=== PATIENT | male | born 1955 | race Caucasian/White ===

== ENCOUNTER 2019-05-09 21:38 | Inpatient (IN) | payer BC, MEDICARE ==
[2019-05-09 23:10] LABS: Appearance,Urine Clear (Clear); Bilirubin,Urine Negative (Negative); Blood,Urine Negative (Negative); Color,Urine Yellow; Glucose,Urine (UA) Negative (Negative); Ketones,Urine Trace (Negative); Leukocyte Esterase,Urine Negative (Negative); Nitrite,Urine Negative (Negative); PH, Urine 5.5 (5.0-8.0); Protein,Urine Negative (Negative); Specific Gravity,Urine 1.009 (1.001-1.035); Urobilinogen,Urine <2.0 mg/dL (<2.0)
[2019-05-09 23:19] LABS: Amphetamine Screen,Urine Not Detected (NotDetected); Barbiturate Screen,Urine Not Detected (NotDetected); Benzodiazepines Screen,Urine Detected (NotDetected); Cocaine Screen,Urine Not Detected (NotDetected); Methadone Screen, Urine Not Detected (NotDetected); Opiate Screen,Urine Not Detected (NotDetected); Oxycodone Screen, Urine Not Detected (NotDetected); Phencyclidine Screen,Urine Not Detected (NotDetected); Tricyclic Antidepressant,Urine Not Detected (NotDetected); Urn Cannabinoid Scrn Not Detected (NotDetected)
[2019-05-09 23:39] LABS: Basophils % (A) 0 %; Eosinophils # (A) 0.1 k/uL (0-0.7); Eosinophils % (A) 1 %; HCT 45.8 % (39.0-53.0); HGB 15.4 gm/dL (13.0-17.5); Lymphocytes # (A) 0.7 k/uL (1.0-4.8); Lymphocytes % (A) 12 %; MCH 32.4 pg (25.0-35.0); MCHC 33.6 g/dL (31.0-37.0); MCV 96.2 fL (80.0-100.0); Mean Platelet Volume 7.1; Monocytes # (A) 0.5 k/uL (0-1.0); Monocytes % (A) 9 %; Neutrophils # (A) 4.3 k/uL (1.3-7.7); Neutrophils % (A) 74 %; Platelet Count 199 k/uL (150-450); RBC 4.76 m/uL (4.30-5.90); RDW 12.3 % (11.5-15.5); WBC 5.8 k/uL (3.8-10.6)
[2019-05-09 23:58] LABS: ALT 205 U/L (21-72); AST 169 U/L (17-59); African American GFR (CKD) >90 (>60 ml/min/1.73 sqM); Albumin 4.3 g/dL (3.5-5.0); Alkaline Phosphatase 66 U/L (38-126); Anion Gap 15 mmol/L; Blood Urea Nitrogen 8 mg/dL (9-20); Calcium 9.3 mg/dL (8.4-10.2); Carbon Dioxide 19 mmol/L (22-30); Chloride 98 mmol/L (98-107); Glucose 87 mg/dL (74-99); Magnesium 1.8 mg/dL (1.6-2.3); Phosphorus 4.3 mg/dL (2.5-4.5); Potassium 4.1 mmol/L (3.5-5.1); Sodium 132 mmol/L (137-145); Total Bilirubin 0.9 mg/dL (0.2-1.3); Total Protein 6.9 g/dL (6.3-8.2)
[2019-05-10 00:10] LABS: Alcohol 108 mg/dL
--- NOTE | 2019-05-10 02:00 | ED ---
General Adult HPI - General Chief complaint: Psychiatric Symptoms Stated complaint: Depression Time Seen by Provider: 05/09/19 22:00 Source: patient, family Mode of arrival: ambulatory Limitations: no limitations - History of Present Illness Initial comments: 64 year-old male patient presents to the emergency department today for evaluation after lying his that he was going to tonight. Patient states that he did drink 7-8 beers today. He admits to drinking alcohol daily basis. Denies any street drug use. Patient states he has been feeling depressed, weak, and exhausted. States that he feels like he is going to . Patient is unable to describe why he thinks this. Patient does take several medications including medication for depression. states he has not been taking them as directed. He denies any active suicidal plan. Denies any homicidal ideation. Denies any hallucinations. Patient denies any recent rash, fever, chills, shortness breath, chest pain, abdominal pain, nausea, vomiting, diarrhea, constipation, back pain, numbness, tingling, dizziness, weakness, hematuria, dysuria, urinary urgency, urinary frequency, headache, visual changes, or any other complaints. - Related Data Home Medications Medication Instructions Recorded Confirmed Benazepril HCl 20 mg PO BID 05/09/19 05/10/19 Simvastatin [Zocor] 80 mg PO DAILY 05/09/19 05/10/19 Zolpidem Tartrate [Ambien Cr] 12.5 mg PO HS PRN 05/09/19 05/10/19 busPIRone HCL 30 mg PO BID 05/09/19 05/10/19 chlordiazePOXIDE HCl [Librium] 25 mg PO DAILY PRN 05/09/19 05/10/19 Allergies Allergy/AdvReac Type Severity Reaction Status Date / Time No Known Allergies Allergy Verified 05/10/19 04:43 Review of Systems ROS Statement: Those systems with pertinent positive or pertinent negative responses have been documented in the HPI. ROS Other: All systems not noted in ROS Statement are negative. Past Medical History Past Medical History: Hyperlipidemia, Hypertension History of Any Multi-Drug Resistant Organisms: None Reported Past Surgical History: Joint Replacement Past Psychological History: Depression Smoking Status: Never smoker Past Alcohol Use History: Abuse, Daily, Heavy Past Drug Use History: None Reported General Exam Limitations: no limitations General appearance: alert, in no apparent distress, other (Physical well- developed, well-nourished adult male patient in no acute distress. Vital signs upon presentation are temperature 98.1F, pulse 109, respirations 16, blood pressure 164/107, pulse ox 96% on room air.) Eye exam: Present: normal appearance, PERRL, EOMI. Absent: scleral icterus, conjunctival injection, periorbital swelling ENT exam: Present: normal exam, normal oropharynx, mucous membranes moist Respiratory exam: Present: normal lung sounds bilaterally. Absent: respiratory distress, wheezes, rales, rhonchi, stridor Cardiovascular Exam: Present: regular rate, normal rhythm, normal heart sounds. Absent: systolic murmur, diastolic murmur, rubs, gallop, clicks GI/Abdominal exam: Present: soft, normal bowel sounds. Absent: distended, tenderness, guarding, rebound, rigid Neurological exam: Present: alert, oriented X3, CN II-XII intact, other (Strength in all 4 extremities is 5/5.) Psychiatric exam: Present: depressed, flat affect. Absent: homicidal ideation, suicidal ideation Skin exam: Present: warm, dry, intact, normal color. Absent: rash Course Vital Signs 05/09/19 05/10/19 05/10/19 21:49 03:24 04:35 Temperature 98.1 F Pulse Rate 109 H 91 Respiratory 16 16 Rate Blood Pressure 164/107 171/113 163/100 O2 Sat by Pulse 96 97 Oximetry EKG Findings - EKG Comments: EKG Findings:: EKG obtained at 2316 shows normal sinus rhythm with a prolonged QT interval. Ventricular rate is 98, LA interval 132, QRS duration 104, QT 368, QTC 469. No evidence of ST elevation or depression. Medical Decision Making - Medical Decision Making 64 year-old male patient percents to the emergency department today reporting symptoms of depression and feeling like he wants to . Physical examination is unremarkable. Labs are obtained and showed no acute abnormalities. He was seen and evaluated by emergency psychiatric services and it is felt that he would benefit from inpatient mission at this time. He'll be transferred to the mental health unit. - Lab Data Result diagrams: 05/09/19 23:10 05/09/19 23:10 Lab Results 05/09/19 05/09/19 05/09/19 Range/Units 22:45 23:10 23:10 WBC 5.8 (3.8-10.6) k/uL RBC 4.76 (4.30-5.90) m/uL Hgb 15.4 (13.0-17.5) gm/dL Hct 45.8 (39.0-53.0) % MCV 96.2 (80.0-100.0) fL MCH 32.4 (25.0-35.0) pg MCHC 33.6 (31.0-37.0) g/dL RDW 12.3 (11.5-15.5) % Plt Count 199 (150-450) k/uL Neutrophils % 74 % Lymphocytes % 12 % Monocytes % 9 % Eosinophils % 1 % Basophils % 0 % Neutrophils # 4.3 (1.3-7.7) k/uL Lymphocytes # 0.7 L (1.0-4.8) k/uL Monocytes # 0.5 (0-1.0) k/uL Eosinophils # 0.1 (0-0.7) k/uL Basophils # 0.0 (0-0.2) k/uL Sodium 132 L (137-145) mmol/L Potassium 4.1 (3.5-5.1) mmol/L Chloride 98 (98-107) mmol/L Carbon Dioxide 19 L (22-30) mmol/L Anion Gap 15 mmol/L BUN 8 L (9-20) mg/dL Creatinine 0.76 (0.66-1.25) mg/dL Est GFR (CKD-EPI)AfAm >90 (>60 ml/min/1.73 sqM) Est GFR (CKD-EPI)NonAf >90 (>60 ml/min/1.73 sqM) Glucose 87 (74-99) mg/dL Calcium 9.3 (8.4-10.2) mg/dL Phosphorus 4.3 (2.5-4.5) mg/dL Magnesium 1.8 (1.6-2.3) mg/dL Total Bilirubin 0.9 (0.2-1.3) mg/dL AST 169 H (17-59) U/L ALT 205 H (21-72) U/L Alkaline Phosphatase 66 (38-126) U/L Total Protein 6.9 (6.3-8.2) g/dL Albumin 4.3 (3.5-5.0) g/dL Urine Color Yellow Urine Appearance Clear (Clear) Urine pH 5.5 (5.0-8.0) Ur Specific [place] 1.009 (1.001-1.035) Urine Protein Negative (Negative) Urine Glucose (UA) Negative (Negative) Urine Ketones Trace H (Negative) Urine Blood Negative (Negative) Urine Nitrite Negative (Negative) Urine Bilirubin Negative (Negative) Urine Urobilinogen <2.0 (<2.0) mg/dL Ur Leukocyte Esterase Negative (Negative) Urine Opiates Screen Not Detected (NotDetected) Ur Oxycodone Screen Not Detected (NotDetected) Urine Methadone Screen Not Detected (NotDetected) Ur Propoxyphene Screen Not Detected (NotDetected) Ur Barbiturates Screen Not Detected (NotDetected) U Tricyclic Antidepress Not Detected (NotDetected) Ur Phencyclidine Scrn Not Detected (NotDetected) Ur Amphetamines Screen Not Detected (NotDetected) U Methamphetamines Scrn Not Detected (NotDetected) U Benzodiazepines Scrn Detected H (NotDetected) Urine Cocaine Screen Not Detected (NotDetected) U Marijuana (THC) Screen Not Detected (NotDetected) Serum Alcohol 108 mg/dL Disposition Clinical Impression: Depression Disposition: TRANSFER TO PSYCH HOSP/UNIT Condition: Serious - Out of Hospital Transfer - Req. Specs Out of Hospital Transfer - Requested Specifics: Psychiatric Non-ICU ([facility])
[2019-05-10] MEDS ORDERED: LISINOPRIL 20 MG TAB PO STA (03:28)
[2019-05-10] MEDS ORDERED: LORazepam 1 MG TAB PO STA (03:29)
[2019-05-10] MEDS ORDERED: MAGNESIUM HYDROXIDE 2,400 MG/10 ML CUP PO PRN (04:30)
[2019-05-10] MEDS ORDERED: LORazepam 1 MG TAB PO PRN ×2 (04:30→04:38)
[2019-05-10] MEDS ORDERED: ACETAMINOPHEN TAB 325 MG TAB PO PRN (04:30)
[2019-05-10] MEDS ORDERED: MAG HYDROX/AL HYDROX/SIMETH 30 ML CUP PO PRN (04:30)
[2019-05-10] MEDS ORDERED: LORazepam 2 MG/ML INJ IM PRN ×2 (04:40→04:41)
[2019-05-10 06:39] VITALS: TEMP 97.5; BMI 25.4
[2019-05-10] MEDS ORDERED: MULTIVITAMINS, THERA 1 EACH TAB PO SCH (09:00)
[2019-05-10] MEDS ORDERED: THIAMINE 100 MG TAB PO SCH (09:00)
[2019-05-10] MEDS ORDERED: FOLIC ACID 1 MG TAB PO SCH (09:00)
[2019-05-10] MEDS ORDERED: SODIUM CHLORIDE 0.9% 1,000 ML IV ONE (09:11)
[2019-05-10] MEDS: chlordiazePOXIDE 25 MG CAP PO PRN ×2 (09:56→14:39)
[2019-05-10 10:09] LABS: ALT 213 U/L (21-72); AST 176 U/L (17-59); African American GFR (CKD) >90 (>60 ml/min/1.73 sqM); Albumin 4.6 g/dL (3.5-5.0); Alkaline Phosphatase 68 U/L (38-126); Anion Gap 13 mmol/L; Blood Urea Nitrogen 15 mg/dL (9-20); Calcium 9.5 mg/dL (8.4-10.2); Carbon Dioxide 21 mmol/L (22-30); Chloride 96 mmol/L (98-107); Glucose 277 mg/dL (74-99); Potassium 5.1 mmol/L (3.5-5.1); Sodium 130 mmol/L (137-145); Total Bilirubin 1.3 mg/dL (0.2-1.3); Total Protein 7.5 g/dL (6.3-8.2)
--- NOTE | 2019-05-10 12:19 | P.HP ---
Psychiatric H&P - . H&P Date: 05/10/19 History & Physical: Allergies Allergy/AdvReac Type Severity Reaction Status Date / Time No Known Allergies Allergy Verified 05/10/19 04:43 Vital Signs Temp 97.5 F L 05/10/19 06:27 Pulse 114 H 05/10/19 11:25 Resp 20 05/10/19 11:25 BP 159/94 05/10/19 11:25 Pulse Ox 97 05/10/19 06:27 Intake & Output 05/09/19 05/10/19 05/10/19 18:59 06:59 18:59 Intake Total 1000 Balance 1000 Weight 82.554 kg Intake: IV 1000 Invasive Line 1 1000 Laboratory Last Values WBC 5.8 k/uL (3.8-10.6) 05/09/19 23:10 RBC 4.76 m/uL (4.30-5.90) 05/09/19 23:10 Hgb 15.4 gm/dL (13.0-17.5) 05/09/19 23:10 Hct 45.8 % (39.0-53.0) 05/09/19 23:10 MCV 96.2 fL (80.0-100.0) 05/09/19 23:10 MCH 32.4 pg (25.0-35.0) 05/09/19 23:10 MCHC 33.6 g/dL (31.0-37.0) 05/09/19 23:10 RDW 12.3 % (11.5-15.5) 05/09/19 23:10 Plt Count 199 k/uL (150-450) 05/09/19 23:10 Neutrophils % 74 % 05/09/19 23:10 Lymphocytes % 12 % 05/09/19 23:10 Monocytes % 9 % 05/09/19 23:10 Eosinophils % 1 % 05/09/19 23:10 Basophils % 0 % 05/09/19 23:10 Neutrophils # 4.3 k/uL (1.3-7.7) 05/09/19 23:10 Lymphocytes # 0.7 k/uL (1.0-4.8) L 05/09/19 23:10 Monocytes # 0.5 k/uL (0-1.0) 05/09/19 23:10 Eosinophils # 0.1 k/uL (0-0.7) 05/09/19 23:10 Basophils # 0.0 k/uL (0-0.2) 05/09/19 23:10 Sodium 130 mmol/L (137-145) L 05/10/19 09:31 Potassium 5.1 mmol/L (3.5-5.1) 05/10/19 09:31 Chloride 96 mmol/L (98-107) L 05/10/19 09:31 Carbon Dioxide 21 mmol/L (22-30) L 05/10/19 09:31 Anion Gap 13 mmol/L 05/10/19 09:31 BUN 15 mg/dL (9-20) 05/10/19 09:31 Creatinine 0.87 mg/dL (0.66-1.25) 05/10/19 09:31 Est GFR (CKD-EPI)AfAm >90 (>60 ml/min/1.73 sqM) 05/10/19 09:31 Est GFR (CKD-EPI)NonAf >90 (>60 ml/min/1.73 sqM) 05/10/19 09:31 Glucose 277 mg/dL (74-99) H 05/10/19 09:31 Calcium 9.5 mg/dL (8.4-10.2) 05/10/19 09:31 Phosphorus 4.3 mg/dL (2.5-4.5) 05/09/19 23:10 Magnesium 1.8 mg/dL (1.6-2.3) 05/09/19 23:10 Total Bilirubin 1.3 mg/dL (0.2-1.3) 05/10/19 09:31 AST 176 U/L (17-59) H 05/10/19 09:31 ALT 213 U/L (21-72) H 05/10/19 09:31 Alkaline Phosphatase 68 U/L (38-126) 05/10/19 09:31 Total Protein 7.5 g/dL (6.3-8.2) 05/10/19 09:31 Albumin 4.6 g/dL (3.5-5.0) 05/10/19 09:31 Urine Color Yellow 05/09/19 22:45 Urine Appearance Clear (Clear) 05/09/19 22:45 Urine pH 5.5 (5.0-8.0) 05/09/19 22:45 Ur Specific [place] 1.009 (1.001-1.035) 05/09/19 22:45 Urine Protein Negative (Negative) 05/09/19 22:45 Urine Glucose (UA) Negative (Negative) 05/09/19 22:45 Urine Ketones Trace (Negative) H 05/09/19 22:45 Urine Blood Negative (Negative) 05/09/19 22:45 Urine Nitrite Negative (Negative) 05/09/19 22:45 Urine Bilirubin Negative (Negative) 05/09/19 22:45 Urine Urobilinogen <2.0 mg/dL (<2.0) 05/09/19 22:45 Ur Leukocyte Esterase Negative (Negative) 05/09/19 22:45 Urine Opiates Screen Not Detected (NotDetected) 05/09/19 22:45 Ur Oxycodone Screen Not Detected (NotDetected) 05/09/19 22:45 Urine Methadone Screen Not Detected (NotDetected) 05/09/19 22:45 Ur Propoxyphene Screen Not Detected (NotDetected) 05/09/19 22:45 Ur Barbiturates Screen Not Detected (NotDetected) 05/09/19 22:45 U Tricyclic Antidepress Not Detected (NotDetected) 05/09/19 22:45 Ur Phencyclidine Scrn Not Detected (NotDetected) 05/09/19 22:45 Ur Amphetamines Screen Not Detected (NotDetected) 05/09/19 22:45 U Methamphetamines Scrn Not Detected (NotDetected) 05/09/19 22:45 U Benzodiazepines Scrn Detected (NotDetected) H 05/09/19 22:45 Urine Cocaine Screen Not Detected (NotDetected) 05/09/19 22:45 U Marijuana (THC) Screen Not Detected (NotDetected) 05/09/19 22:45 Serum Alcohol 108 mg/dL 05/09/19 23:10 05/10/19 12:03 Identification: Patient is a 64-year-old male who was brought to the emergency room stating that he was "dying" but was unable to verbalize why he felt that way. History of Present Illness: Patient was brought to the emergency room and he states that he didn't feel well. When I asked him why he felt like he was dying he said that because he had severe in him. Patient is a poor historian. Patient states that he been drinking for the last 10 years, had a period of a six-year sobriety which I am unable to determine when that was. Patient had difficulty answering questions, there is a long delay before patient answered and at times he was unable to come up with the information at other times he was able to answer the questions. Patient reports that he drinks anywhere from 6-8 12 ounce beers a day, denied that he used any liquor or wine. Patient states that he uses Librium once to twice a week, patient also uses Ambien nightly, he is been receiving these medications for at least the last 2 years. Patient stated that he has been depressed once in a while and has been on these medications for depression and anxiety but again could not elaborate on what symptoms that he has had. Patient denied that he was feeling suicidal currently and denied any history of suicide attempts. Patient states that he has never had any withdrawal seizures and has had blackouts in the past. Patient was u nable to respond to whether he has had visual hallucinations, auditory hallucinations during any of his withdrawals in the past. Patient states that he has never had any inpatient or outpatient alcohol rehab. Patient was unable to give any further history regarding any symptoms just stating that he "felt the beers hit me last night" as the reason for his feeling like he was dying last evening and being brought to the emergency room by his . Past Psychiatric History: Patient denies any prior inpatient or outpatient psychiatric treatment, he has been prescribed Ambien 12.5 mg daily as needed and Librium 25 mg daily as needed for the last 2 years or more by primary care physician for what he states his anxiety and depression but unable to elaborate. Past Medical/Surgical History: Patient denied that he had any medical problems and denied any surgical history Family History: Patient denied any history of psychiatric or alcohol or drug abuse disorders in the family and no completed suicides Social History: Patient's parents are both states that he had 9 siblings 2 of whom are also . 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 He stated that he retired a month and a half ago in 2017 and then stated that he retired a month and a half ago in March 2019. Patient told me he was at the age of 25 but could not tell me how many years he had been for. Patient has 3 children ages 38, 35 and 27. He lives with his and daughter. He retired and is on Social Security and a pension. He denied any abuse history. Substance Use History: Patient states that he is only been drinking beer since the age of 48 and was sober for 10 years and started drinking 6 years ago. [place] states he drinks 6-8 beers a day, 12 ounces and denied the use of any liquor or wine. He denied any other drug use history currently or in the past and does not use tobacco Legal History: Patient denied any legal problems Mental status:Appearance/Attitude: Patient is dressed in a hospital gown, makes eye contact and is cooperative Behavior: Patient does not exhibit any psychomotor agitation there is evidence of psychomotor retardation as the patient takes a while to respond to questions at times not being able to respond to them Speech/Language: Patient's speech is slow of normal volume, he is coherent but non-elaborative Thought Process: Patient responds with limited information, no evidence of loose association or flight of ideas Thought Content: Patient denies auditory or visual hallucinations, no delusions or paranoid ideation or elicited. Patient does state that he has difficulty thinking clearly, feeling confused and had difficulty responding to my questions at times not being able to answer the question at other times providing very limited or conflicting information. Patient states that he has been sleeping and eating at home Suicidal/Homicidal Ideation: Patient denied any current suicidal or homicidal ideation Sensorium/Cognition: Patient was alert he was oriented to the date 05/10/2019, to person, he thought we were in the emergency room and was unable to calculate how many years he was knowing how old he was when he was and his current age patient did know his birthdate. Further cognitive testing was not performed at this time Mood/Affect: Patient's mood is restricted and his affect blunted Insight/Judgment: Patient's insight and judgment are fair Intellectual Functioning: Patient's intellectual functioning appears average Strength/Weakness: Patient has housing, financial support/use of alcohol Assessment: Patient presents after being brought to the emergency room by his with the patient reporting that he felt like he was dying but unable to elaborate. When I questioned him this morning he stated that he was still feeling somewhat confused was having trouble organizing his thoughts and was very slow to respond to some questions and at other times could not answer the questions. Patient also had difficulty manipulating numbers to calculate how many years he had been . Patient states that he thinks the beers hit him hard yesterday and asked why he felt like he was dying but he could come up with nothing more than that. He states that he's been taking medication for depression and anxiety, BuSpar 30 mg twice a day, Librium 25 mg as needed daily and Ambien 12.5 mg as needed at bedtime. He is unable to elaborate on what he meant by anxiety and/or depression and could give me no symptoms of either, he did not endorse any symptoms of psychosis and has no prior history of suicide attempts or inpatient psychiatric treatment. Patient uses alcohol for an unknown period of time stating up to 8 beers a day for at least the last 6-10 years. He has had no inpatient or outpatient alcohol rehab treatment. Patient has been filling prescriptions for Librium 25 mg tablets #30 each month as well as Ambien 12.5 mg #30 each month for the last 2 years. Patient denies having any seizures on alcohol withdrawal, he does state that he is had blackouts. Patient's blood alcohol level on admission was 108, his urine drug screen was positive for benzodiazepines and his sodium was low at 132. Admission Diagnosis: Alcohol use disorder, moderate; alcohol withdrawal; rule out anxiety disorder secondary to alcohol use Plan: Patient was admitted on a voluntary basis, placed on routine observation in group and activity therapy were ordered. Routine laboratory studies were also obtained, and a medical consultation was obtained and I spoke with the physicians regarding my concerns about the patient's sodium level and a IV was ordered for bolus of normal saline. Patient was also placed on an alcohol withdrawal protocol using Librium 25 mg 4 times a day as needed. Patient was not continued on his BuSpar or Ambien and will continue to assess the patient while he is in the hospital to determine what medications are appropriate or not. We'll continue to monitor the patient as his liver enzymes are also elevated and follow his sodium level. Patient requires hospitalization to target his alcohol withdrawal symptoms, and evaluate the appropriate need for medication for anxiety and/or depression.
[2019-05-10] MEDS ORDERED: SODIUM CHLORIDE 0.9% 1,000 ML IV SCH (13:15)
[2019-05-10] MEDS ORDERED: chlordiazePOXIDE 25 MG CAP PO PRN (14:48)
[2019-05-10 15:40] VITALS: PULSE 119
--- NOTE | 2019-05-10 16:02 | P.DS ---
Providers Date of admission: 05/10/19 04:16 Expected date of discharge: 05/10/19 Attending physician: Maria Elena Foreman MD Consults: 05/10/19 04:30 Consult Physician Routine Consulting Provider: Roya Fisher Consult Reason/Comments: For H & P for Medical Consult Do you want consulting provider notified?: Yes, Notify in am [facility]: Discharge Diagnosis: Alcohol withdrawal without perceptual disturbances, alcohol use disorder, moderate severity; rule out anxiety disorder secondary to alcohol Reason for Admission: Patient is a 64-year-old male who was brought to the emergency room stating that he was "dying" but was unable to verbalize why he felt that way. Patient was brought to the emergency room and he states that he didn't feel well. When I asked him why he felt like he was dying he said that because he had severe in him. Patient is a poor historian. Patient states that he been drinking for the last 10 years, had a period of a six-year sobriety which I am unable to determine when that was. Patient had difficulty answering questions, there is a long delay before patient answered and at times he was unable to come up with the information at other times he was able to answer the questions. Patient reports that he drinks anywhere from 6-8 12 ounce beers a day, denied that he used any liquor or wine. Patient states that he uses Librium once to twice a week, patient also uses Ambien nightly, he is been receiving these medications for at least the last 2 years. Patient stated that he has been depressed once in a while and has been on these medications for depression and anxiety but again could not elaborate on what symptoms that he has had. Patient denied that he was feeling suicidal currently and denied any history of suicide attempts. Patient states that he has never had any withdrawal seizures and has had blackouts in the past. Patient was unable to respond to whether he has had visual hallucinations, auditory hallucinations during any of his withdrawals in the past. Patient states that he has never had any inpatient or outpatient alcohol rehab. Patient was unable to give any further history regarding any symptoms just stating that he "felt the beers hit me last night" as the reason for his feeling like he was dying last evening and being brought to the emergency room by his . Mental status on Admission:Appearance/Attitude: Patient is dressed in a hospital gown, makes eye contact and is cooperative Behavior: Patient does not exhibit any psychomotor agitation there is evidence of psychomotor retardation as the patient takes a while to respond to questions at times not being able to respond to them Speech/Language: Patient's speech is slow of normal volume, he is coherent but non-elaborative Thought Process: Patient responds with limited information, no evidence of loose association or flight of ideas Thought Content: Patient denies auditory or visual hallucinations, no delusions or paranoid ideation or elicited. Patient does state that he has difficulty thinking clearly, feeling confused and had difficulty responding to my questions at times not being able to answer the question at other times providing very limited or conflicting information. Patient states that he has been sleeping and eating at home Suicidal/Homicidal Ideation: Patient denied any current suicidal or homicidal ideation Sensorium/Cognition: Patient was alert he was oriented to the date 05/10/2019, to person, he thought we were in the emergency room and was unable to calculate how many years he was knowing how old he was when he was and his current age patient did know his birthdate. Further cognitive testing was not performed at this time Mood/Affect: Patient's mood is restricted and his affect blunted Insight/Judgment: Patient's insight and judgment are fair Hospital Course: Patient was admitted on a voluntary basis, placed on routine observation, group and activity therapy were ordered laboratory tests were obtained as well as a medical consultation. Patient been placed on Ativan for alcohol withdrawal, he had also been taking Librium 25 mg daily as well as Ambien 12.5 mg daily at home. I spoke with the site medical director regarding medications to be used for withdrawal as the patient had been using Librium on the outside and we switched the patient to Librium 25 mg every 6 hours when necessary for alcohol withdrawal. Patient was also noted to have a low sodium level and was given normal saline IV, patient was also placed on folic acid, thiamine. Patient's blood pressure this morning responded to both Ativan and Librium however later in the afternoon his blood pressure was noted to be 170/104 with a pulse of 141, he received Librium 25 mg 5 hours after his last oral Librium dose and an hour later his blood pressure was 156/103 and his pulse was 119. I spoke with Dr Silvestre regarding transfer to a medical floor due to the patient's nonresponse to Librium, his persistent slow responses to questions, prolonged QT. Patient will be transferred to a medical floor. Discharge Mental Status: Patient was seen again he was lying in bed in a hospital gown, there is some perspiration on his forehead, patient continues to respond to questions slowly and appears confused at times. Patient is alert, he is oriented to person, date, and knows that he is in the hospital. Patient appears confused, has difficulty responding to complex questions. Patient denies any auditory or visual hallucinations and no paranoid or delusional ideation was elicited. Patient denies any current suicidal or homicidal ideation. Patient states that he's feeling a little better, he had some tremors of his upper extremities on exam. Discharge Plan: Patient will be transferred to a medical floor to continue to treat his alcohol withdrawal Patient Condition at Discharge: Serious Plan - Discharge Summary New Discharge Prescriptions: No Action chlordiazePOXIDE HCl [Librium] 25 mg PO DAILY PRN PRN Reason: Anxiety Zolpidem Tartrate [Ambien Cr] 12.5 mg PO HS PRN PRN Reason: Insomnia Benazepril HCl 20 mg PO BID Simvastatin [Zocor] 80 mg PO DAILY busPIRone HCL 30 mg PO BID Discharge Medication List Benazepril HCl 20 mg PO BID 05/09/19 [History] Simvastatin [Zocor] 80 mg PO DAILY 05/09/19 [History] Zolpidem Tartrate [Ambien Cr] 12.5 mg PO HS PRN 05/09/19 [History] busPIRone HCL 30 mg PO BID 05/09/19 [History] chlordiazePOXIDE HCl [Librium] 25 mg PO DAILY PRN 05/09/19 [History] Follow up Appointment(s)/Referral(s): Janice White III, MD [Primary Care Provider] - 1-2 days
[2019-05-10 17:52] VITALS: BP 158/93; RESP 18
--- NOTE | 2019-05-10 18:54 | P.CONS ---
History of Present Illness - History of Present Illness this is a pleasant 64 yo M with pmh of alcoholism and depression , who presents to the psych units with signs and symptoms of depression and suicidal ideation , medical consult was requested for medical management. pt states he drinks about 6 beers each days with no liquor , he denies other medical problems to me or taking other medications . he was in psych unit getting librium as needed four times day , however he still feels anxious , no chest pain or coughing or dyspne a , he gilberto also abd pain or change in urine or bowel habits, no fever . pt has tremor in his hand but no nausea or vomiting he is tachycardic at 114-127 , hypertensive 158/93, Na is 132 after corrected for hyperglycemia, mildly elevated liver enz mostly due to alcohol effect first librium standing dose was added to his prn librium regimen however pt did no improve and psychiatrist team felt pt need further management at general medical floor. Review of Systems CONSTITUTIONAL: No fever, no malaise, no fatigue. HEENT: No recent visual problems or hearing problems. Denied any sore throat. CARDIOVASCULAR: No orthopnea, PND, no palpitations, no syncope. PULMONARY: No shortness of breath, no cough, no hemoptysis. GASTROINTESTINAL: No diarrhea, no nausea, no vomiting, no abdominal pain. Normoactive bowel sounds. NEUROLOGICAL: No headaches, no weakness, no numbness. HEMATOLOGICAL: Denies any bleeding or petechiae. GENITOURINARY: Denies any burning micturition, frequency, or urgency. MUSCULOSKELETAL/RHEUMATOLOGICAL: Denies any joint pain, swelling, or any muscle pain. ENDOCRINE: Denies any polyuria or polydipsia. Past Medical History Past Medical History: Hyperlipidemia, Hypertension History of Any Multi-Drug Resistant Organisms: None Reported Past Surgical History: Joint Replacement Additional Past Surgical History / Comment(s): left hip approximately 25 years ago Past Psychological History: Depression Smoking Status: Never smoker Past Alcohol Use History: Abuse, Daily, Heavy Past Drug Use History: None Reported Medications and Allergies Home Medications Medication Instructions Recorded Confirmed Type Benazepril HCl 20 mg PO BID 05/09/19 05/10/19 History Simvastatin [Zocor] 80 mg PO DAILY 05/09/19 05/10/19 History Zolpidem Tartrate [Ambien Cr] 12.5 mg PO HS PRN 05/09/19 05/10/19 History busPIRone HCL 30 mg PO BID 05/09/19 05/10/19 History chlordiazePOXIDE HCl [Librium] 25 mg PO DAILY PRN 05/09/19 05/10/19 History Allergies Allergy/AdvReac Type Severity Reaction Status Date / Time No Known Allergies Allergy Verified 05/10/19 04:43 Physical Exam Vitals: Vital Signs Temp Pulse Pulse Pulse Pulse Resp BP 05/10/19 17:51 119 H 18 05/10/19 15:39 119 H 05/10/19 14:41 141 H 20 05/10/19 11:25 114 H 20 05/10/19 09:50 127 H 18 05/10/19 07:24 116 H 15 05/10/19 06:27 97.5 F L 126 H 15 05/10/19 05:55 90 16 170/100 05/10/19 04:35 163/100 05/10/19 03:24 91 16 171/113 05/09/19 21:49 98.1 F 109 H 16 164/107 BP BP BP Pulse Ox 05/10/19 17:51 158/93 05/10/19 15:39 156/103 05/10/19 14:41 170/104 05/10/19 11:25 159/94 05/10/19 09:50 137/91 05/10/19 07:24 136/100 05/10/19 06:27 177/111 97 05/10/19 05:55 05/10/19 04:35 05/10/19 03:24 97 05/09/19 21:49 96 Intake and Output 05/10/19 05/10/19 05/10/19 06:59 14:59 22:59 Intake Total 1000 Balance 1000 Intake: IV 1000 Invasive Line 1 1000 -GENERAL: The patient is alert and oriented x3, not in any acute distress. Well developed, well nourished. pt is anxious HEENT: Pupils are round and equally reacting to light. EOMI. No scleral icterus. No conjunctival pallor. Normocephalic, atraumatic. No pharyngeal erythema. No thyromegaly. CARDIOVASCULAR: S1 and S2 present. No murmurs, rubs, or gallops. PULMONARY: Chest is clear to auscultation, no wheezing or crackles. ABDOMEN: Soft, nontender, nondistended, normoactive bowel sounds. No palpable organomegaly. MUSCULOSKELETAL: No joint swelling or deformity. -EXTREMITIES: No cyanosis, clubbing, or pedal edema. mild tremor of hand NEUROLOGICAL: Gross neurological examination did not reveal any focal deficits. SKIN: No rashes. Results CBC & Chem 7: 05/09/19 23:10 05/10/19 09:31 Labs: Abnormal Lab Results - Last 24 Hours (Table) 05/09/19 05/09/19 05/09/19 Range/Units 22:45 23:10 23:10 Lymphocytes # 0.7 L (1.0-4.8) k/uL Sodium 132 L (137-145) mmol/L Chloride (98-107) mmol/L Carbon Dioxide 19 L (22-30) mmol/L BUN 8 L (9-20) mg/dL Glucose (74-99) mg/dL AST 169 H (17-59) U/L ALT 205 H (21-72) U/L Urine Ketones Trace H (Negative) U Benzodiazepines Scrn Detected H (NotDetected) 05/10/19 Range/Units 09:31 Lymphocytes # (1.0-4.8) k/uL Sodium 130 L (137-145) mmol/L Chloride 96 L (98-107) mmol/L Carbon Dioxide 21 L (22-30) mmol/L BUN (9-20) mg/dL Glucose 277 H (74-99) mg/dL AST 176 H (17-59) U/L ALT 213 H (21-72) U/L Urine Ketones (Negative) U Benzodiazepines Scrn (NotDetected) Assessment and Plan Assessment: alcohol abuse alcohol withdrawal depression and suicidal ideation mild hyponatremia mild elevation of liver enz Plan: this is a pleasant 64 yo M who presents with s/s of depression to the psych unit , medical consult is obtain to help with alcohol abuse and withdrawal , pt felt getting his alcohol withdrawal uncontrolled by psych team and transfer to medical rubalcava is requested . pt will be going to general medical floor with sitter at bed side. start CIWA protocol and vitamin and we will obtain phsyi atrist consult while in medical floor , also pt will need telemetry bed, chest xray and monitor labs and vital Labs and medication were reviewed.. Continue same treatment. Continue with symptomatic treatment. Resume home medication. Monitor lytes and vitals. DVT and GI prophylaxis. Further recommendations of the clinical course of the patient DVT prophylaxis: Subcutaneous heparin GI Prophylaxis: Pepcid Prognosis is guarded
[2019-05-10] MEDS ORDERED: chlordiazePOXIDE 25 MG CAP PO SCH (21:00)
[2019-05-11] MEDS ORDERED: amLODIPine 10 MG TAB PO SCH (18:38)
== END 2019-05-10 18:59 | disposition short-term general hospital (02) | DRG 897 ==
LOC: EC 21:38 → 3MHU 05-10 04:16
PROVIDERS: ADMIT Psychiatry & Neurology Psychiatry; ATTEND Psychiatry & Neurology Psychiatry
DX: F10.19 Alcohol abuse with unspecified alcohol-induced disorder (principal); E87.1 Hypo-osmolality and hyponatremia; E78.5 Hyperlipidemia, unspecified; F32.9 Major depressive disorder, single episode, unspecified; F41.9 Anxiety disorder, unspecified; I10 Essential (primary) hypertension; I45.81 Long QT syndrome; Y90.5 Blood alcohol level of 100-119 mg/100 ml; Z79.899 Other long term (current) drug therapy; Z96.60 Presence of unspecified orthopedic joint implant
CPT/HCPCS: 36415; 80053; 80306; 80320; 81003; 82075; 83735; 84100; 85025; 93005; 99285

== ENCOUNTER 2019-05-10 19:18 | Inpatient (IN) | payer MEDICARE ==
[2019-05-10] MEDS ORDERED: THIAMINE 100 MG/ML 2 ML VIAL IM STA (19:32)
[2019-05-10] MEDS ORDERED: LORazepam 2 MG/ML INJ IV PRN (19:32)
[2019-05-10 19:49] VITALS: BMI 26.4
[2019-05-10] MEDS: THIAMINE 100 MG TAB PO SCH ×2 (20:47→20:48)
[2019-05-10] MEDS: LORazepam 2 MG/ML INJ IV PRN (21:40)
[2019-05-11] MEDS: SODIUM CHLORIDE 0.9% 1,000 ML IV SCH ×3 (00:19→23:15)
[2019-05-11] MEDS: THIAMINE 100 MG TAB PO SCH ×2 (06:26→13:58)
[2019-05-11 07:50] LABS: Basophils % (A) 0 %; Eosinophils # (A) 0.1 k/uL (0-0.7); Eosinophils % (A) 1 %; HCT 42.6 % (39.0-53.0); HGB 14.5 gm/dL (13.0-17.5); Lymphocytes # (A) 0.6 k/uL (1.0-4.8); Lymphocytes % (A) 10 %; MCH 32.8 pg (25.0-35.0); MCV 96.4 fL (80.0-100.0); Mean Platelet Volume 8.1; Monocytes # (A) 0.5 k/uL (0-1.0); Monocytes % (A) 8 %; Neutrophils # (A) 4.4 k/uL (1.3-7.7); Neutrophils % (A) 78 %; Platelet Count 175 k/uL (150-450); RBC 4.42 m/uL (4.30-5.90); RDW 13.3 % (11.5-15.5); WBC 5.6 k/uL (3.8-10.6)
[2019-05-11 08:08] LABS: ALT 138 U/L (21-72); AST 90 U/L (17-59); African American GFR (CKD) >90 (>60 ml/min/1.73 sqM); Albumin 3.8 g/dL (3.5-5.0); Alkaline Phosphatase 55 U/L (38-126); Anion Gap 7 mmol/L; Blood Urea Nitrogen 14 mg/dL (9-20); Calcium 9.1 mg/dL (8.4-10.2); Carbon Dioxide 25 mmol/L (22-30); Chloride 103 mmol/L (98-107); Glucose 92 mg/dL (74-99); Magnesium 1.9 mg/dL (1.6-2.3); Potassium 4.2 mmol/L (3.5-5.1); Sodium 135 mmol/L (137-145); Total Bilirubin 1.1 mg/dL (0.2-1.3); Total Protein 6.3 g/dL (6.3-8.2)
[2019-05-11] MEDS: FAMOTIDINE 20 MG TAB PO SCH ×2 (09:09→21:07)
[2019-05-11] MEDS: HEPARIN SODIUM,PORCINE 5,000 UNIT/ML 1 ML VIAL SQ SCH ×2 (09:09→21:09)
[2019-05-11] MEDS: LORazepam 2 MG/ML INJ IV PRN ×5 (09:09→23:13)
[2019-05-11] MEDS ORDERED: cloNIDine 0.1 MG/24HR PATCH TRANSDERM SCH (10:30)
--- NOTE | 2019-05-11 13:11 | P.HPIM ---
History of Present Illness This is a pleasant 64 years old male with past medical history of alcohol abuse and depression he was transferred yesterday from psych unit where he was admitted for depression and suicidal ideation. Patient transferred to the [facility] floor for alcohol withdrawal and uncontrolled blood pressure and heart rate. He is been treated with Librium and the psych unit. However here in the medical floor with continuous 20 protocol. Currently patient is still a little bit confused he took him a while and help to remember he is in the hospital, however he knows which Hospital and CT. He has vague understanding why he is in the hospital. He denies chest pain or dyspnea. No abdominal pain. He is tolerating that well with no nausea vomiting. No change in urine or bowel habits. No fever. There is a sitter at bedside for safety. Vitals still showing hypertension with blood pressure 162/97, heart rate 80-92. No fever and he is saturating 96 on room air. CBC is unremarkable and hyponatremia is improving with IV fluid, and today his score was 9 in the morning and he was shaky and sweaty and he needed Ativan. Now is feeling better. He used to drink 6 beers per day and last drink was just before coming to the hospital. this is a pleasant 64 yo M with pmh of alcoholism and depression , who presents to the psych units with signs and symptoms of depression and suicidal ideation , medical consult was requested for medical management. pt states he drinks about 6 beers each days with no liquor , he denies other medical problems to me or taking other medications . he was in psych unit getting librium as needed four times day , however he still feels anxious , no chest pain or coughing or dyspnea , he gilberto also abd pain or change in urine or bowel habits, no fever . pt has tremor in his hand but no nausea or vomiting he is tachycardic at 114-127 , hypertensive 158/93, Na is 132 after corrected for hyperglycemia, mildly elevated liver enz mostly due to alcohol effect first librium standing dose was added to his prn librium regimen however pt did no improve and psychiatrist team felt pt need further management at general medical floor. Review of Systems CONSTITUTIONAL: No fever, no malaise, no fatigue. HEENT: No recent visual problems or hearing problems. Denied any sore throat. CARDIOVASCULAR: No orthopnea, PND, no palpitations, no syncope. PULMONARY: No shortness of breath, no cough, no hemoptysis. GASTROINTESTINAL: No diarrhea, no nausea, no vomiting, no abdominal pain. Normoactive bowel sounds. NEUROLOGICAL: No headaches, no weakness, no numbness. HEMATOLOGICAL: Denies any bleeding or petechiae. GENITOURINARY: Denies any burning micturition, frequency, or urgency. MUSCULOSKELETAL/RHEUMATOLOGICAL: Denies any joint pain, swelling, or any muscle pain. ENDOCRINE: Denies any polyuria or polydipsia. Past Medical History Past Medical History: Hyperlipidemia, Hypertension Additional Past Medical History / Comment(s): ETOH abuse History of Any Multi-Drug Resistant Organisms: None Reported Past Surgical History: Joint Replacement Additional Past Surgical History / Comment(s): left hip approximately 25 years ago Past Psychological History: Depression Smoking Status: Never smoker Past Alcohol Use History: Abuse, Daily, Heavy Past Drug Use History: None Reported Medications and Allergies Home Medications Medication Instructions Recorded Confirmed Type Benazepril HCl 20 mg PO BID 05/09/19 05/10/19 History Simvastatin [Zocor] 80 mg PO DAILY 05/09/19 05/10/19 History Zolpidem Tartrate [Ambien Cr] 12.5 mg PO HS PRN 05/09/19 05/10/19 History busPIRone HCL 30 mg PO BID 05/09/19 05/10/19 History chlordiazePOXIDE HCl [Librium] 25 mg PO DAILY PRN 05/09/19 05/10/19 History Allergies Allergy/AdvReac Type Severity Reaction Status Date / Time No Known Allergies Allergy Verified 05/10/19 20:30 Physical Exam Vitals: Vital Signs Temp Pulse Resp BP Pulse Ox 05/11/19 11:41 98.6 F 80 20 162/97 96 05/11/19 09:30 97.9 F 92 20 170/92 97 05/11/19 04:00 98.1 F 81 16 160/98 97 05/11/19 00:00 98.4 F 98 16 156/84 95 05/10/19 19:28 98.1 F 120 H 16 157/113 98 Intake and Output 05/10/19 05/11/19 05/11/19 22:59 06:59 14:59 Intake Total 50 360 Balance 50 360 Intake: Oral 50 360 Other: Weight 83.5 kg 83.5 kg -GENERAL: The patient is alert and oriented x3, not in any acute distress. Well developed, well nourished. Patient is anxious HEENT: Pupils are round and equally reacting to light. EOMI. No scleral icterus. No conjunctival pallor. Normocephalic, atraumatic. No pharyngeal erythema. No thyromegaly. CARDIOVASCULAR: S1 and S2 present. No murmurs, rubs, or gallops. PULMONARY: Chest is clear to auscultation, no wheezing or crackles. ABDOMEN: Soft, nontender, nondistended, normoactive bowel sounds. No palpable organomegaly. MUSCULOSKELETAL: No joint swelling or deformity. EXTREMITIES: No cyanosis, clubbing, or pedal edema. NEUROLOGICAL: Gross neurological examination did not reveal any focal deficits. SKIN: No rashes. Results CBC & Chem 7: 05/11/19 06:46 05/11/19 06:46 Labs: Abnormal Lab Results - Last 24 Hours (Table) 05/11/19 05/11/19 Range/Units 06:46 06:46 Lymphocytes # 0.6 L (1.0-4.8) k/uL Sodium 135 L (137-145) mmol/L AST 90 H (17-59) U/L ALT 138 H (21-72) U/L Thrombosis Risk Factor Assmnt - Choose All That Apply Other Risk Factors: Yes Each Risk Factor Represents 2 Points: Age 61-74 years Thrombosis Risk Factor Assessment Total Risk Factor Score: 2 Thrombosis Risk Factor Assessment Level: Low Risk Assessment and Plan Assessment: alcohol abuse alcohol withdrawal Hypertension, uncontrolled depression and suicidal ideation mild hyponatremia mild elevation of liver enz Plan: This is a pleasant 64 years old male who presents from the psych unit for alcohol withdrawal and hypertension. Continue with CIWA protocol, continue with vitamins. Gentle hydration. Check chest x-ray. Psychiatric evaluation, told and continue with sitter with one-to-one observation. Start on metoprolol and Norvasc. Labs and medication were reviewed.. Continue same treatment. Continue with symptomatic treatment. Resume home medication. Monitor lytes and vitals. DVT and GI prophylaxis. Further recommendations of the clinical course of the patient DVT prophylaxis: Subcutaneous heparin GI Prophylaxis: Pepcid Prognosis is guarded
[2019-05-11] MEDS ORDERED: amLODIPine 2.5 MG TAB PO SCH (13:15)
[2019-05-11] MEDS: METOPROLOL TARTRATE 25 MG TAB PO SCH ×2 (13:57→21:07)
--- NOTE | 2019-05-11 15:27 | P.CN ---
Psychiatric Consult - . Consult date: 05/11/19 Consult:: 05/11/19 15:15 Identification: Patient is a 64-year-old male who was transferred to the medical floor from the psychiatric unit for alcohol withdrawal symptoms. Reason for Consult: Alcohol/depression History of Present Illness: Patient was seen on the psychiatric unit and had been brought to the emergency room by his . Patient in the emergency room was stating that he was dying and today states that he also felt like he wanted to . Patient was unable to verbalize yesterday or today why he felt this way other than that he did not feel well and states it's from the beer he had been drinking. Patient states I think I was drunk at the time I came into the emergency room. Patient again today states that he's only been drinking 7 beers a day and has only been drinking for the last 7-8 years and drank less before that time. His reports a different alcohol use history when she was in the ER with him at the time of his first admission. Patient states that he retired earlier this year and has been bored and has nothing to do. Patient seen on the floor in consultation repeated the same information that he had to me on the inpatient psychiatric unit. He states that he is not feeling suicidal, that he no longer feels like dying but is unable to verbalize why he felt that way on admission other than that he physically did not feel well. Patient states it's because of all the beer that he had in him but in fact when the patient was admitted his blood alcohol level was only 108. Patient has been treated with BuSpar for anxiety but is unable to explain to me what type of anxiety or what symptoms he is had and he is also been prescribed Ambien 12.5 mg and Librium 25 mg daily for over 2 years and has been taking these medications on a daily basis. Patient again today was unable to explain to me what type of anxiety he has had, denies that he was feeling suicidal in the emergency room and states he is depressed because he has nothing to do since his senior care. Patient does not elaborate on feeling hopeless, helpless or worthless and is really unable to give more history regarding his symptoms. Patient remains a fair to poor historian, he is responding a more quickly today and does not look as confused. Past Psychiatric History: Patient denies any prior inpatient or outpatient psychiatric treatment, he has been prescribed Ambien 12.5 mg daily as needed and Librium 25 mg daily as needed for the last 2 years or more by primary care physician for what he states his anxiety and depression but unable to elaborate. Patient is also been taking BuSpar 30 mg twice a day Past Medical/Surgical History: Patient denies any medical problems or surgical history Social History: Patient's parents are both states that he had 9 siblings 2 of whom are also . 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 He stated that he retired a month and a half ago in 2017 and then stated that he retired a month and a half ago in March 2019. Patient told me he was at the age of 25 but could not tell me how many years he had been for. Patient has 3 children ages 38, 35 and 27. He lives with his and daughter. He retired and is on Social Security and a pension. He denied any abuse history. Substance Use History: Patient states that he is only been drinking beer since the age of 48 and was sober for 10 years and started drinking 6 years ago. Patient states he drinks 6-8 beers a day, 12 ounces and denied the use of any liquor or wine. He denied any other drug use history currently or in the past and does not use tobacco Mental status: Appearance/Attitude: Patient is lying in a hospital bed, he appears less confused today than he did yesterday, currently no tremors are noticeable and the patient is not sweating and he states he's feeling more comfortable, patient made eye contact and was cooperative Behavior: Patient does not exhibit any psychomotor agitation or retardation Speech/Language: Patient's speech is more spontaneous today, there is still a slight delay in responding to questions he is coherent Thought Process: Patient is goal-directed there is still some evidence of thought blocking Thought Content: Patient denies any auditory or visual hallucinations no delusions or paranoid ideation or elicited. Patient states that he felt like dying and wanted to when he was admitted to the emergency room but cannot elaborate on why other than to tell me it was because he was intoxicated on beer. Patient states that he is been feeling depressed because he has nothing to do since he retired earlier this year. Suicidal/Homicidal Ideation: Patient denies any current suicidal or homicidal ideation Sensorium/Cognition: Patient is more alert today, oriented to person, situation, date further cognitive testing is not performed Mood/Affect: Patient's mood is brighter and his affect is appropriate Insight/Judgment: Patient's insight and judgment are fair Assessment: Patient was seen today, he appears to be less confused, his thinking is clear there is less evidence of thought blocking. Patient is responding more she'll probably to questions but again is unable to elaborate on why he was being treated for anxiety in the past and what specific symptoms he had. Patient was treated with Ambien 12.5 mg nightly and Librium 25 mg daily for a number of years. Patient was also on BuSpar 30 mg twice a day. Patient reports he was drinking 7-8 beers a day, however his in the emergency room reported a much larger use of alcohol. Patient continues to have alcohol withdrawal symptoms and is currently being treated with IV Ativan with good response. Diagnosis: Alcohol withdrawal without perceptual disturbance; alcohol use disorder moderate severity Plan: Would continue with the safety glass installer as needed at the discretion of the nursing staff. Will not restart patient's BuSpar at this time and would recommend not beginning Ambien or Librium again either. Patient has been on Librium for a number of years. Patient and I discussed inpatient alcohol rehab once he is stabilized and he was open to this idea. I will follow the patient while he was on the medical floor but at this time I see that the patient most likely will not need to be transferred back to the inpatient psychiatric unit. Will continue to encourage the patient to consider inpatient alcohol rehab once he is stabilized.
[2019-05-11] MEDS ORDERED: amLODIPine 5 MG TAB PO STA (20:39)
[2019-05-11] MEDS ORDERED: hydrALAZINE HCL 20 MG/ML 1 ML VIAL IVP PRN (20:43)
--- NOTE | 2019-05-11 21:25 | XR ---
EXAMINATION TYPE: XR chest 1V DATE OF EXAM: 05/11/2019 COMPARISON: NONE HISTORY: Alcoholism. Altered mental status. TECHNIQUE: Single frontal view of the chest is obtained. FINDINGS: There is no focal air space opacity, pleural effusion, or pneumothorax seen. Right superio r mediastinum is slightly prominent given patient rotation. The cardiac silhouette size is within nor mal limits. The osseous structures are intact. IMPRESSION: No acute process.
[2019-05-12] MEDS: LORazepam 2 MG/ML INJ IV PRN ×3 (04:46→14:22)
[2019-05-12] MEDS: THIAMINE 100 MG TAB PO SCH ×2 (06:30→20:21)
[2019-05-12 06:42] LABS: Basophils % (A) 1 %; Eosinophils # (A) 0.1 k/uL (0-0.7); Eosinophils % (A) 2 %; HCT 42.6 % (39.0-53.0); HGB 14.4 gm/dL (13.0-17.5); Lymphocytes # (A) 0.8 k/uL (1.0-4.8); Lymphocytes % (A) 16 %; MCH 33.2 pg (25.0-35.0); MCHC 33.9 g/dL (31.0-37.0); Mean Platelet Volume 7.6; Monocytes # (A) 0.5 k/uL (0-1.0); Monocytes % (A) 10 %; Neutrophils # (A) 3.2 k/uL (1.3-7.7); Neutrophils % (A) 69 %; Platelet Count 175 k/uL (150-450); RBC 4.35 m/uL (4.30-5.90); RDW 12.3 % (11.5-15.5); WBC 4.6 k/uL (3.8-10.6)
[2019-05-12 06:56] LABS: ALT 119 U/L (21-72); AST 78 U/L (17-59); African American GFR (CKD) >90 (>60 ml/min/1.73 sqM); Albumin 3.9 g/dL (3.5-5.0); Alkaline Phosphatase 52 U/L (38-126); Anion Gap 6 mmol/L; Blood Urea Nitrogen 14 mg/dL (9-20); Calcium 9.3 mg/dL (8.4-10.2); Carbon Dioxide 28 mmol/L (22-30); Chloride 102 mmol/L (98-107); Glucose 97 mg/dL (74-99); Potassium 4.4 mmol/L (3.5-5.1); Sodium 136 mmol/L (137-145); Total Bilirubin 0.9 mg/dL (0.2-1.3); Total Protein 6.4 g/dL (6.3-8.2)
[2019-05-12] MEDS: HEPARIN SODIUM,PORCINE 5,000 UNIT/ML 1 ML VIAL SQ SCH ×2 (08:20→20:22)
[2019-05-12] MEDS: FAMOTIDINE 20 MG TAB PO SCH ×2 (08:20→20:21)
[2019-05-12] MEDS: amLODIPine 10 MG TAB PO SCH (08:21)
[2019-05-12] MEDS: METOPROLOL TARTRATE 25 MG TAB PO SCH (08:21)
[2019-05-12] MEDS ORDERED: amLODIPine 5 MG TAB PO SCH (09:00)
[2019-05-12] MEDS ORDERED: METOPROLOL TARTRATE 25 MG TAB PO STA ×2 (13:20→22:31)
--- NOTE | 2019-05-12 13:24 | P.PN ---
Subjective This is a pleasant 64 years old male with past medical history of alcohol abuse and depression he was transferred yesterday from psych unit where he was admitted for depression and suicidal ideation. Patient transferred to the medical floor for alcohol withdrawal and uncontrolled blood pressure and heart rate. He is been treated with Librium and the psych unit. However here in the medical floor with continuous 20 protocol. Currently patient is still a little bit confused he took him a while and help to remember he is in the hospital, however he knows which Hospital and CT. He has vague understanding why he is in the hospital. He denies chest pain or dyspnea. No abdominal pain. He is tolerating that well with no nausea vomiting. No change in urine or bowel habits. No fever. There is a sitter at bedside for safety. Vitals still showing hypertension with blood pressure 162/97, heart rate 80-92. No fever and he is saturating 96 on room air. CBC is unremarkable and hyponatremia is improving with IV fluid, and today his score was 9 in the morning and he was shaky and sweaty and he needed Ativan. Now is feeling better. He used to drink 6 beers per day and last drink was just before coming to the hospital. this is a pleasant 64 yo M with pmh of alcoholism and depression , who presents to the psych units with signs and symptoms of depression and suicidal ideation , medical consult was requested for medical management. pt states he drinks about 6 beers each days with no liquor , he denies other medical problems to me or taking other medications . he was in psych unit getting librium as needed four times day , however he still feels anxious , no chest pain or coughing or dyspnea , he gilberto also abd pain or change in urine or bowel habits, no fever . pt has tremor in his hand but no nausea or vomiting he is tachycardic at 114-127 , hypertensive 158/93, Na is 132 after corrected for hyperglycemia, mildly elevated liver enz mostly due to alcohol effect first librium standing dose was added to his prn librium regimen however pt did no improve and psychiatrist team felt pt need further management at general medical floor. 05/12/2019 Patient is awake and orienting with no respiratory symptoms. No urinary symptoms. Tolerating diet well with no nausea or vomiting.. His blood pressure is improving. However his blood pressure still on the high side and currently. Currently he is on metoprolol 25 mg twice daily and Norvasc 10 mg daily.. Labs from today are reviewed and they are unremarkable. Chest x-ray: No acute process. Patient might benefit from alcohol rehab. Also we'll ask for physical therapy evaluation Objective - Vital Signs Vital signs: Vital Signs Temp 97.1 F L 05/12/19 11:44 Pulse 79 05/12/19 11:44 Resp 20 05/12/19 11:44 BP 141/96 05/12/19 11:44 Pulse Ox 97 05/12/19 11:44 Intake & Output 05/11/19 05/12/19 05/12/19 18:59 06:59 18:59 Intake Total 720 120 Balance 720 120 Weight 81 kg Intake: Oral 720 120 Other: # Voids 3 2 - Exam GENERAL: The patient is alert and oriented x3, not in any acute distress. Well developed, well nourished. HEENT: Pupils are round and equally reacting to light. EOMI. No scleral icterus. No conjunctival pallor. Normocephalic, atraumatic. No pharyngeal erythema. No thyromegaly. CARDIOVASCULAR: S1 and S2 present. No murmurs, rubs, or gallops. PULMONARY: Chest is clear to auscultation, no wheezing or crackles. ABDOMEN: Soft, nontender, nondistended, normoactive bowel sounds. No palpable organomegaly. MUSCULOSKELETAL: No joint swelling or deformity. EXTREMITIES: No cyanosis, clubbing, or pedal edema. NEUROLOGICAL: Gross neurological examination did not reveal any focal deficits. SKIN: No rashes. - Labs CBC & Chem 7: 05/12/19 06:08 05/12/19 06:08 Labs: Abnormal Lab Results - Last 24 Hours (Table) 05/12/19 05/12/19 Range/Units 06:08 06:08 Lymphocytes # 0.8 L (1.0-4.8) k/uL Sodium 136 L (137-145) mmol/L AST 78 H (17-59) U/L ALT 119 H (21-72) U/L Assessment and Plan Assessment: alcohol abuse alcohol withdrawal Hypertension, better controlled depression and suicidal ideation . Evaluated by psychiatrist mild hyponatremia mild elevation of liver enz , improving Plan: This is a pleasant 64 years old male who presents from the psych unit for alcohol withdrawal and hypertension. Continue with CIWA protocol, continue with vitamins. Gentle hydration. Check chest x-ray. Psychiatric evaluation, told and continue with sitter with one-to-one observation. Start on metoprolol and Norvasc. Labs and medication were reviewed.. Continue same treatment. Continue with symptomatic treatment. Resume home medication. Monitor lytes and vitals. DVT and GI prophylaxis. Further recommendations of the clinical course of the patient DVT prophylaxis: Subcutaneous heparin GI Prophylaxis: Pepcid Prognosis is guarded
--- NOTE | 2019-05-12 15:02 | P.PN ---
Progress Note - Text Progress Note Date: 05/12/19 Interval History: Patient is a 64-year-old male who is being seen in follow-up to a consultation. Patient was lying in his hospital bed in no acute distress no evidence of tremors, sweating and he states that he's been eating well. Patient states that he is feeling anxious and when I asked him why he was asking for the Ativan he told me it because he likes the way it makes him feel. The patient and I discussed his use of Librium, Ambien and BuSpar on the outside for anxiety, the patient is unable to elaborate on what he actually means by that. Patient also had told me yesterday he felt depressed because he was no longer working and had nothing to do during the day. Patient stated today that he is not having any suicidal ideation currently. Mental Status: Appearance/Attitude: Patient is lying in a hospital bed in no acute distress, makes eye contact and was cooperative. Behavior: Patient does not exhibit any psychomotor agitation or retardation Speech/Language: Patient's speech is of normal volume and rhythm and he is coherent Thought Process: Patient continues to have some evidence of thought blocking, there is a slight delay in the patient's response to questions, but he states that he is thinking somewhat clear today Thought Content: Patient denies any auditory or visual hallucinations no delusions or paranoid ideation or elicited, patient states he's been eating well and sleeping well and is no longer having any sweating episodes, tremors or shakes. Patient stated to me that he was requesting the Ativan because he likes the way it makes him feel. Patient states that he has anxiety and what is he going to take for anxiety when he leaves the hospital. Patient is unable to elaborate on what he means by anxiety. Suicidal/Homicidal Ideation: Patient denies any current suicidal or homicidal ideation Sensorium/Cognition: Patient is alert and oriented to person, situation and place further cognitive testing is not performed Mood/Affect: Patient's mood is pleasant and his affect appropriate to his mood Insight/Judgment: Patient's insight and judgment are limited Assessment: Patient continues to have difficulty processing information and responding to questions. He is unable to elaborate on his complaints of feeling anxious, patient is requesting Ativan because he likes the way it makes him feel. He continues to insist that he was only using 7 beers a day and states that he was only taking Librium several times a month. Patient was also on BuSpar for anxiety as an outpatient. Patient states that he had been feeling depressed at home because he had retired and was bored. Plan: I would recommend changing the patient to oral Ativan at low doses to continue to taper him off as his CIWA scores are 2 and he is reporting liking the way that the Ativan makes him feel. Patient has been on Librium for a number of years on a daily basis at 25 mg. I discussed with the patient that I would begin Celexa 10 mg at dinnertime for his anxiety and depressive symptoms is a better drug than using one of the benzodiazepines. I discussed again with the patient inpatient alcohol rehab and he was agreeable to this. Once patient is medically stable he can be discharged and does not require transfer back to the inpatient psychiatric unit. Patient should not be prescribed any benzodiazepines or Ambien at the time of discharge. Patient can continue on Celexa 10 mg at the time of discharge. Please have social work worked with the patient on referrals for inpatient alcohol rehab and psychiatric outpatient referral. Patient was again advised that he needs to quit using alcohol, that his symptoms of anxiety and depression may be secondary to his use of alcohol. I will sign off the case if there are any further questions or concerns please don't hesitate to contact me.
[2019-05-12] MEDS: CITALOPRAM HYDROBROMIDE 10 MG TAB PO SCH (17:27)
[2019-05-12] MEDS ORDERED: METOPROLOL TARTRATE 25 MG TAB PO SCH ×2 (21:00)
[2019-05-13] MEDS: amLODIPine 10 MG TAB PO SCH (05:16)
[2019-05-13] MEDS: METOPROLOL TARTRATE 50 MG TAB PO SCH ×2 (08:32→21:27)
[2019-05-13] MEDS: FAMOTIDINE 20 MG TAB PO SCH ×2 (08:32→21:27)
[2019-05-13] MEDS: HEPARIN SODIUM,PORCINE 5,000 UNIT/ML 1 ML VIAL SQ SCH (08:32)
[2019-05-13] MEDS: THIAMINE 100 MG TAB PO SCH ×2 (08:33→16:52)
[2019-05-13] MEDS: LORazepam 0.5 MG TAB PO PRN ×2 (08:35→23:23)
--- NOTE | 2019-05-13 12:22 | P.CRDCN ---
History of Present Illness History of present illness: This is a pleasant 64-year-old male past medical history significant for coronary artery disease in the setting of an acute inferior wall myocardial infarction 1996, hypertension, dyslipidemia and alcohol abuse. He follows in the office with Dr. Jones. We have been asked to see him in consultation secondary to new onset atrial fibrillation. He was initially being treated for depression on the mental health unit and subsequently went into alcohol withdraw and transferred to [facility] unit for treatment. Last evening telemetry tracings indicate he went into paroxysmal atrial fibrillation with rapid ventricular rates. There was no EKG obtained however this was seen on telemetry. The patient denies chest pain, shortness of breath, dizziness, palpitations or nausea/vomit ing. He states he was not feeling these palpitations last night or did not realize he was having an arrhythmia. He was started on lopressor per primary care team. Chest xray negative for an acute cardiopulmonary process. Laboratory data reviewed, WBC 4.6, hemoglobin 14.4, platelets 175, sodium 136, potassium 4.4, creatinine 0.84 magnesium 1.9, AST 79, ALC 119. Current cardiac medications include amlodipine 10 mg daily, lopressor 50 mg BID and simvastatin 80 mg daily. Prior to arrival he was on benazapril 20 mg BID which has been discontinued by primary care team. Cardiac catheterization performed in 1996 revealed 100% lesion in the distal circumflex and the lesion 25% in the mid LAD. At the time of my exam: CONSTITUTIONAL: Denies fever. Denies chills. EYES: Denies blurred vision. Denies vision changes. Denies eye pain. EARS, NOSE, MOUTH & THROAT: Denies headache. Denies sore throat. Denies ear pain. CARDIOVASCULAR: Denies chest pain. Denies shortness of breath. Denies orthopnea. Denies PND. Denies palpitations. RESPIRATORY: Denies cough. GASTROINTESTINAL: Denies abdominal pain. Denies diarrhea. Denies constipation. Denies nausea. Denies vomiting. MUSCULOSKELETAL: Denies myalgias. INTEGUMENTARY: Denies pruitis. Denies rash. NEUROLOGIC: Denies numbness. Denies tingling. Denies weakness. PSYCHIATRIC: Denies anxiety. Denies depression. ENDOCRINE: Denies fatigue. Denies weight change. Denies polydipsia. Denies polyurina. GENITOURINARY: Denies burning, hematuria or urgency with micturation. HEMATOLOGIC: Denies history of anemia. Denies bleeding. Blood pressure 157/90 heart rate 77 afebrile maintaining oxygen saturation on room air GENERAL: This is a 64-year-old male in no apparent distress at the time of my examination. HEENT: Head is atraumatic, normocephalic. Pupils are equal, round. Sclerae anicteric. Conjunctivae are clear. Mucous membranes of the mouth are moist. Neck is supple. There is no jugular venous distention. No carotid bruit is heard. LUNGS: Clear to auscultation no wheezes, rales or rhonchi. No chest wall tenderness is noted on palpation or with deep breathing. HEART: Regular rate and rhythm without murmurs, rubs or gallops. S1 and S2 heard. ABDOMEN: Soft, nontender. Bowel sounds are heard. No organomegaly noted. EXTREMITIES: No evidence of peripheral edema and no calf tenderness noted. VASCULAR: Radial and dorsalis pedis pulses palpated, no evidence of clubbing. NEUROLOGIC: Patient is awake, alert and oriented x3. ASSESSMENT New onset paroxysmal atrial fibrillation History of alcohol, last drink was . Active withdrawal Hypertension Dyslipidemia History of coronary artery disease in the setting of an inferior wall myocardial infarction 1996 PLAN Obtain 2-D echocardiogram and Doppler study to assess cardiac structure and function. Initiate on Eliquis 5 mg twice a day for thromboembolic protection. No aspirin. Continue lopressor as previously ordered. Resume atorvastatin and lisinopril. Check TSH. Thank you kindly for this consultation. Nurse Practitioner note has been reviewed, I agree with a documented findings and plan of care. Patient was seen and examined. Past Medical History Past Medical History: Hyperlipidemia, Hypertension Additional Past Medical History / Comment(s): ETOH abuse History of Any Multi-Drug Resistant Organisms: None Reported Past Surgical History: Joint Replacement Additional Past Surgical History / Comment(s): left hip approximately 25 years ago Past Psychological History: Depression Smoking Status: Never smoker Past Alcohol Use History: Abuse, Daily, Heavy Past Drug Use History: None Reported Medications and Allergies Home Medications Medication Instructions Recorded Confirmed Type Benazepril HCl 20 mg PO BID 05/09/19 05/10/19 History Simvastatin [Zocor] 80 mg PO DAILY 05/09/19 05/10/19 History Zolpidem Tartrate [Ambien Cr] 12.5 mg PO HS PRN 05/09/19 05/10/19 History busPIRone HCL 30 mg PO BID 05/09/19 05/10/19 History chlordiazePOXIDE HCl [Librium] 25 mg PO DAILY PRN 05/09/19 05/10/19 History Allergies Allergy/AdvReac Type Severity Reaction Status Date / Time No Known Allergies Allergy Verified 05/10/19 20:30 Physical Exam Vitals: Vital Signs Temp Pulse Resp BP Pulse Ox 05/13/19 08:31 77 157/90 05/13/19 05:08 98.2 F 116 H 18 162/105 95 05/12/19 23:45 18 05/12/19 19:48 98.5 F 89 18 149/91 96 Intake and Output 05/12/19 05/13/19 05/13/19 22:59 06:59 14:59 Other: Voiding Method Toilet Toilet # Voids 1 1 Results 05/12/19 06:08 05/12/19 06:08 Current Medications Generic Name Dose Route Start Last Admin Trade Name Freq PRN Reason Stop Dose Admin Amlodipine Besylate 10 mg 05/12/19 09:00 05/13/19 05:16 Norvasc PO 10 mg DAILY MOHINDER Administration Apixaban 5 mg 05/13/19 12:15 Eliquis PO BID MOHINDER Citalopram Hydrobromide 10 mg 05/12/19 17:00 05/12/19 17:27 Celexa PO 10 mg 1700 MOHINDER Administration Famotidine 20 mg 05/11/19 09:00 05/13/19 08:32 Pepcid PO 20 mg BID MOHINDER Administration Heparin Sodium (Porcine) 5,000 unit 05/11/19 09:00 05/13/19 08:32 Heparin SQ 5,000 unit Q12HR MOHINDER Administration Lorazepam 0.5 mg 05/12/19 21:14 05/13/19 08:35 Ativan PO 0.5 mg Q4HR PRN Administration Anxiety Metoprolol Tartrate 50 mg 05/13/19 09:00 05/13/19 08:32 Lopressor PO 50 mg BID MOHINDER Administration Thiamine HCl 100 mg 05/10/19 17:00 05/13/19 08:33 Vitamin B-1 PO 100 mg BID-W/MEALS MOHINDER Administration Intake and Output 05/12/19 05/13/19 05/13/19 22:59 06:59 14:59 Other: Voiding Method Toilet Toilet # Voids 1 1 05/12/19 06:08 05/12/19 06:08
[2019-05-13] MEDS: APIXABAN 5 MG TAB PO SCH ×2 (13:07→21:26)
[2019-05-13] MEDS: LISINOPRIL 20 MG TAB PO SCH (13:07)
[2019-05-13] MEDS: CITALOPRAM HYDROBROMIDE 10 MG TAB PO SCH (16:52)
[2019-05-13 17:21] LABS: T4, Free (Free Thyroxine) 1.41 ng/dL (0.78-2.19)
--- NOTE | 2019-05-13 18:41 | P.PN ---
Subjective This is a pleasant 64 years old male with past medical history of alcohol abuse and depression he was transferred yesterday from psych unit where he was admitted for depression and suicidal ideation. Patient transferred to the medical floor for alcohol withdrawal and uncontrolled blood pressure and heart rate. He is been treated with Librium and the psych unit. However here in the medical floor with continuous 20 protocol. Currently patient is still a little bit confused he took him a while and help to remember he is in the hospital, however he knows which Hospital and CT. He has vague understanding why he is in the hospital. He denies chest pain or dyspnea. No abdominal pain. He is tolerating that well with no nausea vomiting. No change in urine or bowel habits. No fever. There is a sitter at bedside for safety. Vitals still showing hypertension with blood pressure 162/97, heart rate 80-92. No fever and he is saturating 96 on room air. CBC is unremarkable and hyponatremia is improving with IV fluid, and today his score was 9 in the morning and he was shaky and sweaty and he needed Ativan. Now is feeling better. He used to drink 6 beers per day and last drink was just before coming to the hospital. this is a pleasant 64 yo M with pmh of alcoholism and depression , who presents to the psych units with signs and symptoms of depression and suicidal ideation , medical consult was requested for medical management. pt states he drinks about 6 beers each days with no liquor , he denies other medical problems to me or taking other medications . he was in psych unit getting librium as needed four times day , however he still feels anxious , no chest pain or coughing or dyspnea , he gilberto also abd pain or change in urine or bowel habits, no fever . pt has tremor in his hand but no nausea or vomiting he is tachycardic at 114-127 , hypertensive 158/93, Na is 132 after corrected for hyperglycemia, mildly elevated liver enz mostly due to alcohol effect first librium standing dose was added to his prn librium regimen however pt did no improve and psychiatrist team felt pt need further management at general medical floor. 05/12/2019 Patient is awake and orienting with no respiratory symptoms. No urinary symptoms. Tolerating diet well with no nausea or vomiting.. His blood pressure is improving. However his blood pressure still on the high side and currently. Currently he is on metoprolol 25 mg twice daily and Norvasc 10 mg daily.. Labs from today are reviewed and they are unremarkable. Chest x-ray: No acute process. Patient might benefit from alcohol rehab. Also we'll ask for physical therapy evaluation 05/13/2019 pt is stable and he is need minimal or no ativan , he takes some because it makes him feels good and psychiatrist recommended to stop it on discharge . pt is with no additional complaint , he denies chest pain , no dyspnea, no coughing ,he is tolerating diet well, pt however develped atrial fibrillation with Rapid heart rate over night on tele, EKG done and cardiology team were consulted who recommended to start pt on anticoagulation , metoprolol dose was increased from 25 mg to 50 mg and his heart rate is better controlled now. discussed with pt and he is considering alcohol rehab. Objective - Vital Signs Vital signs: Vital Signs Temp 97.8 F 05/13/19 11:55 Pulse 67 05/13/19 11:55 Resp 15 05/13/19 11:55 BP 154/94 05/13/19 11:55 Pulse Ox 98 05/13/19 11:55 Intake & Output 05/12/19 05/13/19 05/13/19 18:59 06:59 18:59 Intake Total 30 600 Balance 30 600 Intake: Intake, IV Titration 30 Amount Sodium Chloride 0.9% 1, 30 000 ml @ 30 mls/hr IV . Q24H [facility] Rx#:[id number] Oral 600 Other: Voiding Method Toilet Toilet # Voids 1 2 - Exam GENERAL: The patient is alert and oriented x3, not in any acute distress. Well developed, well nourished. HEENT: Pupils are round and equally reacting to light. EOMI. No scleral icterus. No conjunctival pallor. Normocephalic, atraumatic. No pharyngeal erythema. No thyromegaly. CARDIOVASCULAR: S1 and S2 present. No murmurs, rubs, or gallops. PULMONARY: Chest is clear to auscultation, no wheezing or crackles. ABDOMEN: Soft, nontender, nondistended, normoactive bowel sounds. No palpable organomegaly. MUSCULOSKELETAL: No joint swelling or deformity. EXTREMITIES: No cyanosis, clubbing, or pedal edema. NEUROLOGICAL: Gross neurological examination did not reveal any focal deficits. SKIN: No rashes. - Labs CBC & Chem 7: 05/12/19 06:08 05/12/19 06:08 Labs: Abnormal Lab Results - Last 24 Hours (Table) 05/12/19 Range/Units 06:06 TSH 5.080 H (0.465-4.680) mIU/L Assessment and Plan Assessment: alcohol abuse alcohol withdrawal, resolved , pt is not on withdrawal any more a fib with RVR, paraxosymal . rate controlled now Hypertension, better controlled depression and suicidal ideation . Evaluated by psychiatrist mild hyponatremia mild elevation of liver enz , improving Plan: This is a pleasant 64 years old male who presents from the psych unit for alc ohol withdrawal and hypertension. change CIWA protocol from iv to po, continue with vitamins. Gentle hydration. chest x-ray: is negative. Psychiatric evaluation is appreicated , cardiology input for a fib is appreciated as well they started pt on eliquis, dc sitter with one-to-one observation. Start on metoprolol and Norvasc. Labs and medication were reviewed.. Continue same treatment. Continue with symptomatic treatment. Resume home medication. Monitor lytes and vitals. DVT and GI prophylaxis. Further recommendations of the clinical course of the patient DVT prophylaxis: eliquis GI Prophylaxis: Pepcid Prognosis is guarded
[2019-05-13] MEDS ORDERED: ATORVASTATIN 80 MG TAB PO SCH (21:00)
[2019-05-14] MEDS: THIAMINE 100 MG TAB PO SCH (07:48)
[2019-05-14 09:01] LABS: Basophils % (A) 1 %; Eosinophils # (A) 0.1 k/uL (0-0.7); Eosinophils % (A) 2 %; HCT 45.9 % (39.0-53.0); HGB 14.9 gm/dL (13.0-17.5); Lymphocytes # (A) 0.5 k/uL (1.0-4.8); Lymphocytes % (A) 10 %; MCH 31.8 pg (25.0-35.0); MCHC 32.4 g/dL (31.0-37.0); Mean Platelet Volume 8.5; Monocytes # (A) 0.6 k/uL (0-1.0); Monocytes % (A) 11 %; Neutrophils # (A) 3.7 k/uL (1.3-7.7); Neutrophils % (A) 72 %; Platelet Count 200 k/uL (150-450); RBC 4.69 m/uL (4.30-5.90); RDW 14.4 % (11.5-15.5); WBC 5.1 k/uL (3.8-10.6)
[2019-05-14 09:35] LABS: Albumin 3.9 g/dL (3.5-5.0); Bilirubin, Delta 0.2 mg/dL (0.0-0.2); Bilirubin,Unconjugated 0.5 mg/dL (0.0-1.1); Total Bilirubin 0.7 mg/dL (0.2-1.3); Total Protein 6.5 g/dL (6.3-8.2)
[2019-05-14] MEDS: APIXABAN 5 MG TAB PO SCH (09:53)
[2019-05-14] MEDS: METOPROLOL TARTRATE 50 MG TAB PO SCH (09:53)
[2019-05-14] MEDS: LISINOPRIL 20 MG TAB PO SCH (09:53)
[2019-05-14] MEDS: amLODIPine 10 MG TAB PO SCH (09:53)
[2019-05-14] MEDS: FAMOTIDINE 20 MG TAB PO SCH (09:53)
--- NOTE | 2019-05-14 11:19 | P.PN ---
Subjective This is a pleasant 64-year-old male past medical history significant for coronary artery disease in the setting of an acute inferior wall myocardial infarction 1996, hypertension, dyslipidemia and alcohol abuse. He follows in the office with Dr. Jones. We have been asked to see him in consultation secondary to new onset atrial fibrillation. He was initially being treated for depression on the mental health unit and subsequently went into alcohol withdraw and transferred to [facility] unit for treatment. Last evening telemetry tracings indicate he went into paroxysmal atrial fibrillation with rapid ventricular rates. There was no EKG obtained however this was seen on telemetry. The patient denies chest pain, shortness of breath, dizziness, palpitations or nausea/vomiting. He states he was not feeling these palpitations last night or did not realize he was having an arrhythmia. He was started on lopressor per primary care team. 05/14/2019 Pt is seen and examined laying flat in bed in no acute distress. He denies chest pain, shortness of breath, palpitations or dizziness. Telemetry tracings reviewed and reveal sinus mechanism with no further arrhythmia noted. Blood pressure 137/88 heart rte 97 afebrile and maintaining oxygen saturation on room air. Laboratory data reviewed, WBC 5.1, hemoglobin 14.9, platelets 200, TSH 5.08 with a free T4 of 1.41. Echocardiogram has been obtained and will be reviewed. Eliquis will not be covered as the patient does not have prescription medication coverage. GENERAL: This is a 64-year-old male in no apparent distress at the time of my examination. HEENT: Head is atraumatic, normocephalic. Pupils are equal, round. Sclerae anicteric. Conjunctivae are clear. Mucous membranes of the mouth are moist. Neck is supple. There is no jugular venous distention. No carotid bruit is heard. LUNGS: Clear to auscultation no wheezes, rales or rhonchi. No chest wall tenderness is noted on palpation or with deep breathing. HEART: Regular rate and rhythm without murmurs, rubs or gallops. S1 and S2 heard. EXTREMITIES: No evidence of peripheral edema and no calf tenderness noted. ASSESSMENT New onset paroxysmal atrial fibrillation History of alcohol, last drink was . Active withdrawal Hypertension Dyslipidemia History of coronary artery disease in the setting of an inferior wall myocardial infarction 1996 PLAN Discontinue eliquis and initiate on coumadin 5 mg daily. Stable for discharge on current medical regimen. Will require PT/INR lab draw q3 days until therapeutic INR between 2-3. Follow up with Dr. Jones upon discharge. Nurse Practitioner note has been reviewed, I agree with a documented findings and plan of care. Patient was seen and examined. Objective - Vital Signs Vital signs: Vital Signs Temp 97.8 F 05/14/19 10:13 Pulse 97 05/14/19 10:13 Resp 20 05/14/19 10:13 BP 137/88 05/14/19 10:13 Pulse Ox 98 05/14/19 05:00 Intake & Output 05/13/19 05/14/19 05/14/19 18:59 06:59 18:59 Intake Total 600 590 Balance 600 590 Intake: Oral 600 590 Other: Voiding Method Toilet Toilet Toilet # Voids 2 2 - Labs CBC & Chem 7: 05/14/19 07:33 05/12/19 06:08 Labs: Abnormal Lab Results - Last 24 Hours (Table) 05/12/19 05/14/19 05/14/19 Range/Units 06:06 07:33 07:33 Lymphocytes # 0.5 L (1.0-4.8) k/uL AST 116 H (17-59) U/L ALT 168 H (21-72) U/L TSH 5.080 H (0.465-4.680) mIU/L
[2019-05-14 12:04] VITALS: BP 154/92; PULSE 81; RESP 16; TEMP 98.2
--- NOTE | 2019-05-14 12:15 | ECHOF ---
Referral Reason:palpitations MEASUREMENTS -------- HEIGHT: 180.3 cm WEIGHT: 80.7 kg BP: IVSd: 1.2 cm (0.6 - 1.1) LVIDd: 5.5 cm (3.9 - 5.3) LVPWd: 1.3 cm (0.6 - 1.1) IVSs: 1.2 cm LVIDs: 4.5 cm LVPWs: 1.8 cm LAESV Index (A-L): 31.76 ml/m Ao Diam: 2.9 cm (2.0 - 3.7) AV Cusp: 1.8 cm (1.5 - 2.6) LA Diam: 2.9 cm (2.7 - 3.8) MV EXCURSION: 13.189 mm (> 18.000) MV EF SLOPE: 44 mm/s (70 - 150) EPSS: 1.7 cm MV E Sean: 0.44 m/s MV DecT: 244 ms MV A Sean: 0.71 m/s MV E/A Ratio: 0.63 RAP: 5.00 mmHg RVSP: 15.84 mmHg FINDINGS -------- Sinus rhythm. This was a technically difficult study with suboptimal views. The left ventricular size is normal. There is mild concentric left ventricular hypertrophy. There is mild global hypokinesis of LV . Overall left ventricular systolic function is low-normal with, an EF between 50 - 55 %. Normal LAP Grade 1 Diastolic Dysfunction. The right ventricle is normal in size. The left atrial size is normal. Normal LA size by volume 22+/-6 ml/m2. The right atrial size is normal. Lumason used The aortic valve is trileaflet and appears structurally normal. The mitral valve is normal. There is trace mitral regurgitation. Trace tricuspid regurgitation present. Right ventricular systolic pressure is normal at < 35 mmHg. There is no pulmonic regurgitation present. The aortic root size is normal. IVC Not well visulized. There is no pericardial effusion. CONCLUSIONS -------- 1. Sinus rhythm. 2. This was a technically difficult study with suboptimal views. 3. The left ventricular size is normal. 4. There is mild concentric left ventricular hypertrophy. 5. There is mild global hypokinesis of LV . 6. Normal LAP Grade 1 Diastolic Dysfunction. 7. The right ventricle is normal in size. 8. The left atrial size is normal. 9. Normal LA size by volume 22+/-6 ml/m2. 10. The right atrial size is normal. 11. Lumason used 12. The aortic valve is trileaflet and appears structurally normal. 13. The mitral valve is normal. 14. There is trace mitral regurgitation. 15. Trace tricuspid regurgitation present. 16. Right ventricular systolic pressure is normal at < 35 mmHg. 17. There is no pulmonic regurgitation present. 18. The aortic root size is normal. 19. IVC Not well visulized. 20. There is no pericardial effusion. SHIPPING TEAM LEADER: Ibis Costa RDCS
[2019-05-14 13:46] LABS: INR 0.9 (<1.2); Prothrombin Time 9.8 sec (9.0-12.0)
--- NOTE | 2019-05-14 14:23 | P.DS ---
Providers Date of admission: 05/10/19 19:27 Attending physician: Abraham Silvestre MD Consults: 05/10/19 21:48 Consult Physician Urgent Consulting Provider: Maria Elena Foreman Consult Reason/Comments: ETOH depression. Do you want consulting provider notified?: Yes, Notify in am Placement Type Exists?: Yes 05/12/19 23:57 Consult Physician Routine Consulting Provider: Priyank Lee Consult Reason/Comments: new afib Do you want consulting provider notified?: Yes, Notify in am Primary care physician: Abraham Silvestre MD Hospital Course: Diagnoses: alcohol abuse alcohol withdrawal, resolved , pt is not on withdrawal any more a fib with RVR, paraxosymal . rate controlled now. Patient started on Coumadin Hypertension, better controlled depression and suicidal ideation . Evaluated by psychiatrist and cleared for discharge mild hyponatremia elevation of liver enz , mostly related to alcoholism versus others. follow-up as an outpatient Hospital course: This is a pleasant 64 years old male with past medical history of alcohol abuse and depression he was transferred from psych unit where he was admitted for depression and suicidal ideation. Patient transferred to the medical floor for alcohol withdrawal and uncontrolled blood pressure and heart rate. He is been treated with Librium and the psych unit. Patient was treated with CIWA protocol, he finished his therapy and he is not grieving for any alcohol/Ativan. Patient finished his withdrawal treatment and can be discharged without need for any benzodiazepines. Patient also had elevated liver enzymes, mostly related to alcoholism. Patient hospital course was complicated by A. fib with RVR, paroxysmal. Patient was cooled been evaluated by textile pin worker, his metoprolol was increased from 25 to 50 mg twice a day and he was started on Eliquis but he doesn't have insurance cover and so it was stitched Coumadin. I explained in detail for the patient and at bedside the role of the coumadine and how is being monitored by INR, risk of bleeding and the benefits, as well as the need to check his INR frequently and within 2-3 days with his primary care doctor and patient and agree. Also I called his PCP Ibis LO Dr. his PCP. And updated her about the patient conditions and the need to follow-up within a few days to check his INR, and to repeat his liver enzymes, I recommended to Ibis LO if liver enzymes still elevated then may consider workup which can be done as an outpatient. And she currently took note of this FORENSIC IDENTIFICATION SPECIALIST, Ibis told me she is going to call the patient in 1 or 2 days to make an appointment, patient and made aware of these and they expectant the called, also I instructed them to call back for an appointment is they didn't hear from the PCP office by tomorrow and they agree. Patient on the day of discharge has no chest pain or dyspnea no abdominal pain, no change in urine or bowel habits, no nausea vomiting, is tolerating diet well, and he is ambulating without difficulty. Patient feels he is ready for discharge. Problems and management plan were discussed with the patient and he verbalized understanding and acceptance. at bedside upon patient request Patient was found stable and can be discharged home however he needs follow-up as an outpatient. Patient was instructed to follow up with his PCP within 1 week, and with his textile pin worker Dr. Jones in 2 weeks. Patient agrees and he wants to make his own appointments. Psychiatry team recommended patient go to alcohol rehab, for example [facility], however his [employer] insurance is not covering his inpatient stay, told me she was trying to find other places. Gen: patient is a AAOx3, no distress CVS: S1-S2, RRR, no murmur Lungs: B/L CTA, no wheezing Abdomen: soft, no distention, no tenderness, positive bowel sounds Extremity: no leg edema or induration Time spent more than 35 minutes Plan - Discharge Summary Discharge Rx Participant: No New Discharge Prescriptions: New Citalopram Hydrobromide [CeleXA] 10 mg PO 1700 #30 tab Warfarin [Coumadin] 5 mg PO ONCE@1800 #20 tab Metoprolol Tartrate [Lopressor] 50 mg PO BID #60 tab amLODIPine [Norvasc] 10 mg PO DAILY #30 tab Famotidine [Pepcid] 20 mg PO BID #28 tab Thiamine [Vitamin B-1] 100 mg PO BID-W/MEALS #30 tab Lisinopril [Zestril] 20 mg PO DAILY tab Continue Simvastatin [Zocor] 80 mg PO DAILY Discontinued chlordiazePOXIDE HCl [Librium] 25 mg PO DAILY PRN PRN Reason: Anxiety Zolpidem Tartrate [Ambien Cr] 12.5 mg PO HS PRN PRN Reason: Insomnia Benazepril HCl 20 mg PO BID busPIRone HCL 30 mg PO BID Discharge Medication List Simvastatin [Zocor] 80 mg PO DAILY 05/09/19 [History] Citalopram Hydrobromide [CeleXA] 10 mg PO 1700 #30 tab 05/14/19 [Rx] Famotidine [Pepcid] 20 mg PO BID #28 tab 05/14/19 [Rx] Lisinopril [Zestril] 20 mg PO DAILY tab 05/14/19 [Rx] Metoprolol Tartrate [Lopressor] 50 mg PO BID #60 tab 05/14/19 [Rx] Thiamine [Vitamin B-1] 100 mg PO BID-W/MEALS #30 tab 05/14/19 [Rx] Warfarin [Coumadin] 5 mg PO ONCE@1800 #20 tab 05/14/19 [Rx] amLODIPine [Norvasc] 10 mg PO DAILY #30 tab 05/14/19 [Rx] Follow up Appointment(s)/Referral(s): Janice White III, MD [STAFF PHYSICIAN] - 1 Week Lyric Jones MD [STAFF PHYSICIAN] - 2 Weeks Ambulatory/Diagnostic Orders: Prothrombin Time INR [LAB.AMB] Time Frame: 3 Days, Location: None Selected Patient Instructions/Handouts: A-fib (Atrial Fibrillation) (DC) Discharge Disposition: HOME SELF-CARE
[2019-05-14] MEDS ORDERED: WARFARIN 5 MG TAB PO SCH (18:00)
== END 2019-05-14 15:48 | disposition home or self-care (01) | DRG 897 ==
LOC: 3SCARD 19:27 → 3NMEDONC 05-12 10:49
PROVIDERS: ADMIT Internal Medicine; ATTEND Internal Medicine
DX: F10.239 Alcohol dependence with withdrawal, unspecified (principal); E87.1 Hypo-osmolality and hyponatremia; F32.9 Major depressive disorder, single episode, unspecified; F41.9 Anxiety disorder, unspecified; E78.5 Hyperlipidemia, unspecified; I25.10 Atherosclerotic heart disease of native coronary artery without angina pectoris; I10 Essential (primary) hypertension; I48.0 Paroxysmal atrial fibrillation; I25.2 Old myocardial infarction; Z79.899 Other long term (current) drug therapy
CPT/HCPCS: 71045; 80053; 80076; 83735; 84439; 84443; 85025; 85610; 93005; 93306

== ENCOUNTER → 2019-05-23 | Outpatient (CLI) | payer MEDICARE ==
--- NOTE | 2019-05-23 12:34 | US ---
EXAMINATION TYPE: US liver DATE OF EXAM: 05/23/2019 COMPARISON: CLINICAL HISTORY: F10.10 ALCOHOL ABUSE,R94.5 ABN LIVER FUNCTIONS. EXAM MEASUREMENTS: Liver Length: 13.3 cm Gallbladder Wall: 0.2 cm CBD: 0.4 cm Right Kidney: 8.0 x 3.9 x 4.0 cm Severe overlying bowel gas. Pancreas: Obscured by bowel gas Liver: There is increased echogenicity of the hepatic parenchyma with diminished visualization of th e portal triads most commonly relating to hepatic steatosis and limiting evaluation for underlying he patic masses. Gallbladder: there appears to be sludge without calculi Evidence for sonographic Guzman's sign: No CBD: wnl Right Kidney: not well visualized due to extensive overlying bowel gas, appears lobular and atrophied IMPRESSION: 1. Sonographic findings most commonly related to hepatic steatosis although others hepatocellular dis eases are possible. Given this patient's history of alcohol abuse early cirrhosis is a possibility. A lthough this limits evaluation of hepatic masses no discrete mass was seen on today's exam. 2. Biliary sludge. No sonographic evidence of acute cholecystitis. 3. Suboptimal visualization of the right kidney, which appears atrophic.
== END | disposition home or self-care (01) ==
LOC: RADUSWWP 10:10
PROVIDERS: ATTEND Family Medicine
DX: K82.8 Other specified diseases of gallbladder (principal); F10.10 Alcohol abuse, uncomplicated; R94.5 Abnormal results of liver function studies
CPT/HCPCS: 76705

== ENCOUNTER 2021-02-20 11:52 | Observation (INO) | payer MEDICARE, OTHER ==
[2021-02-20] MEDS ORDERED: ONDANSETRON ODT 8 MG TAB.RAPDIS PO STA (12:44)
[2021-02-20] MEDS ORDERED: SODIUM CHLORIDE 0.9% 1,000 ML IV STA (12:48)
--- NOTE | 2021-02-20 12:55 | ED ---
General Adult HPI - General Chief complaint: Nausea/Vomiting/Diarrhea Stated complaint: vomiting Time Seen by Provider: 02/20/21 12:16 Source: patient Mode of arrival: ambulatory Limitations: no limitations - History of Present Illness Initial comments: Dictation was produced using [employer] dictation software. please excuse any grammatical, word or spelling errors. This patient was cared for during a federal and state declared state of emergency secondary to Covid 19 Chief Complaint: 65-year-old male past medical history of alcohol use,, A. fib on Coumadin presents to the emergency department for 2 days of nausea and vomiting. History of Present Illness: 65-year-old male. He presents to the emergency department with . Patient states that over the last 2 days she's been very nauseated and having multiple bouts of coffee-ground emesis. Patient has a history of alcohol abuse. He drinks 5-6 beers daily. Patient's last alcohol intake was 48 hours ago. Patient was feeling well. States he has diffuse generalized abdominal pain. Denies any black stools or melanotic features to his stools. reports that patient's are shaky. Usually gets pretty anxious when he doesn't drink. States he has had withdrawals in the past. Has been hospitalized in the past for EtOH withdrawal. The ROS documented in this emergency department record has been reviewed and confirmed by me. Those systems with pertinent positive or negative responses have been documented in the HPI. All other systems are other negative and/or n oncontributory. PHYSICAL EXAM: General Impression: Alert and oriented x3, not in acute distress, mildly tremulous HEENT: Normocephalic atraumatic, extra-ocular movements intact, pupils equal and reactive to light bilaterally, mucous membranes moist. Cardiovascular: Heart regular rate and rhythm Chest: Able to complete full sentences, no retractions, no tachypnea Abdomen: abdomen soft, mild diffuse generalized abdominal pain, non-distended, no organomegaly Musculoskeletal: Pulses present and equal in all extremities, no peripheral edema Motor: no focal deficits noted Neurological: CN II-XII grossly intact, no focal motor or sensory deficits noted Skin: Intact with no visualized rashes Psych: Normal affect and mood ED course: 65-year-old male presents with nausea and vomiting. There is concern of coffee-ground emesis. Patient is on Coumadin. He said alcohol abuser. Signs upon arrival are within acceptable limits. Laboratory evaluation obtained. Hemoglobin stable at 16.5. Coag panel shows INR of 2.9. Metabolic panel shows an 1:30, mild gap acidosis with a bicarb of 20 and gap 13. Slight elevation to laboratory markers. Troponin is 0.079. So, was positive. Serum alcohol is negative. Patient has elevated troponin. Is reevaluated at bedside denies any chest pain shortness of breath. He does have history of ID. States his symptoms today do not remind him of his symptoms when he had myocardial infarction. At this point patient's current presentation is likely secondary GI bleed. Unclear if patient has baseline elevated troponin, this is related to GI bleed or if patient is having acute coronary event. Furthermore, patient does have symptoms suggestive of alcohol withdrawal. Patient is given Ativan and antiemetic. Patient be admitted for serial troponins, GI consultation for GI bleed and medical monitoring for development of possible alcohol withdrawal. Patient given aspirin. He is given aspirin and protonix. EKG interpretation: Ventricular rate 74 sinus rhythm,. 126, QRS 100, QTC 444. No FL prolongation, no QTC prolongation, no ST or T-wave changes noted. EKG compared to 05/13/2019 showing no changes. Overall, this EKG is unremarkable - Related Data Home Medications Medication Instructions Recorded Confirmed Simvastatin [Zocor] 80 mg PO DAILY 05/09/19 02/20/21 Citalopram Hydrobromide [CeleXA] 10 mg PO DAILY 02/20/21 02/20/21 Previous Rx's Medication Instructions Recorded Famotidine [Pepcid] 20 mg PO BID #28 tab 05/14/19 Metoprolol Tartrate [Lopressor] 50 mg PO BID #60 tab 05/14/19 Thiamine [Vitamin B-1] 100 mg PO BID-W/MEALS #30 tab 05/14/19 Warfarin [Coumadin] 5 mg PO ONCE@1800 #20 tab 05/14/19 amLODIPine [Norvasc] 10 mg PO DAILY #30 tab 05/14/19 lisinopriL [Zestril] 20 mg PO DAILY tab 05/14/19 Allergies Allergy/AdvReac Type Severity Reaction Status Date / Time No Known Allergies Allergy Verified 02/20/21 14:23 Review of Systems ROS Statement: Those systems with pertinent positive or pertinent negative responses have been documented in the HPI. ROS Other: All systems not noted in ROS Statement are negative. Past Medical History Past Medical History: Hyperlipidemia, Hypertension Additional Past Medical History / Comment(s): ETOH abuse History of Any Multi-Drug Resistant Organisms: None Reported Past Surgical History: Joint Replacement Additional Past Surgical History / Comment(s): left hip approximately 25 years ago Past Psychological History: Depression Smoking Status: Former smoker Past Alcohol Use History: Abuse, Daily, Heavy Past Drug Use History: None Reported General Exam Limitations: no limitations Course Vital Signs 02/20/21 12:04 Temperature 98.2 F Pulse Rate 76 Respiratory 18 Rate Blood Pressure 158/83 O2 Sat by Pulse 96 Oximetry Medical Decision Making - Lab Data Result diagrams: 02/20/21 13:13 02/20/21 13:13 Lab Results 02/20/21 02/20/21 02/20/21 Range/Units 13:13 13:13 13:13 WBC 9.6 (3.8-10.6) k/uL RBC 4.89 (4.30-5.90) m/uL Hgb 16.5 (13.0-17.5) gm/dL Hct 46.3 (39.0-53.0) % MCV 94.8 (80.0-100.0) fL MCH 33.8 (25.0-35.0) pg MCHC 35.7 (31.0-37.0) g/dL RDW 12.9 (11.5-15.5) % Plt Count 196 (150-450) k/uL MPV 8.6 Neutrophils % 88 % Lymphocytes % 4 % Monocytes % 6 % Eosinophils % 1 % Basophils % 0 % Neutrophils # 8.4 H (1.3-7.7) k/uL Lymphocytes # 0.4 L (1.0-4.8) k/uL Monocytes # 0.6 (0-1.0) k/uL Eosinophils # 0.1 (0-0.7) k/uL Basophils # 0.0 (0-0.2) k/uL PT 28.3 H (9.0-12.0) sec INR 2.9 H (<1.2) APTT 27.8 (22.0-30.0) sec Sodium 130 L (137-145) mmol/L Potassium 5.1 (3.5-5.1) mmol/L Chloride 97 L (98-107) mmol/L Carbon Dioxide 20 L (22-30) mmol/L Anion Gap 13 mmol/L BUN 35 H (9-20) mg/dL Creatinine 1.24 (0.66-1.25) mg/dL Est GFR (CKD-EPI)AfAm 70 (>60 ml/min/1.73 sqM) Est GFR (CKD-EPI)NonAf 60 (>60 ml/min/1.73 sqM) Glucose 165 H (74-99) mg/dL Plasma Lactic Acid Noe (0.7-2.0) mmol/L Calcium 9.8 (8.4-10.2) mg/dL Total Bilirubin 1.5 H (0.2-1.3) mg/dL AST 149 H (17-59) U/L ALT 93 H (4-49) U/L Alkaline Phosphatase 54 (38-126) U/L Troponin I (0.000-0.034) ng/mL Total Protein 8.3 H (6.3-8.2) g/dL Albumin 4.9 (3.5-5.0) g/dL Lipase 220 (23-300) U/L Stool Occult Blood (Negative) Serum Alcohol <10 mg/dL 02/20/21 02/20/21 02/20/21 Range/Units 13:13 13:13 16:14 WBC (3.8-10.6) k/uL RBC (4.30-5.90) m/uL Hgb (13.0-17.5) gm/dL Hct (39.0-53.0) % MCV (80.0-100.0) fL MCH (25.0-35.0) pg MCHC (31.0-37.0) g/dL RDW (11.5-15.5) % Plt Count (150-450) k/uL MPV Neutrophils % % Lymphocytes % % Monocytes % % Eosinophils % % Basophils % % Neutrophils # (1.3-7.7) k/uL Lymphocytes # (1.0-4.8) k/uL Monocytes # (0-1.0) k/uL Eosinophils # (0-0.7) k/uL Basophils # (0-0.2) k/uL PT (9.0-12.0) sec INR (<1.2) APTT (22.0-30.0) sec Sodium (137-145) mmol/L Potassium (3.5-5.1) mmol/L Chloride (98-107) mmol/L Carbon Dioxide (22-30) mmol/L Anion Gap mmol/L BUN (9-20) mg/dL Creatinine (0.66-1.25) mg/dL Est GFR (CKD-EPI)AfAm (>60 ml/min/1.73 sqM) Est GFR (CKD-EPI)NonAf (>60 ml/min/1.73 sqM) Glucose (74-99) mg/dL Plasma Lactic Acid Noe 1.4 (0.7-2.0) mmol/L Calcium (8.4-10.2) mg/dL Total Bilirubin (0.2-1.3) mg/dL AST (17-59) U/L ALT (4-49) U/L Alkaline Phosphatase (38-126) U/L Troponin I 0.079 H* (0.000-0.034) ng/mL Total Protein (6.3-8.2) g/dL Albumin (3.5-5.0) g/dL Lipase (23-300) U/L Stool Occult Blood Positive (Negative) Serum Alcohol mg/dL Disposition Clinical Impression: Nausea, GI bleed, Elevated troponin Disposition: ADMITTED IP TO THIS [facility] Condition: Fair Referrals: Janice White III, MD [Primary Care Provider] - 1-2 days Decision Time: 17:16
[2021-02-20 13:31] LABS: Basophils % (A) 0 %; Eosinophils # (A) 0.1 k/uL (0-0.7); Eosinophils % (A) 1 %; HCT 46.3 % (39.0-53.0); HGB 16.5 gm/dL (13.0-17.5); Lymphocytes # (A) 0.4 k/uL (1.0-4.8); Lymphocytes % (A) 4 %; MCH 33.8 pg (25.0-35.0); MCHC 35.7 g/dL (31.0-37.0); MCV 94.8 fL (80.0-100.0); Mean Platelet Volume 8.6; Monocytes # (A) 0.6 k/uL (0-1.0); Monocytes % (A) 6 %; Neutrophils # (A) 8.4 k/uL (1.3-7.7); Neutrophils % (A) 88 %; Platelet Count 196 k/uL (150-450); RBC 4.89 m/uL (4.30-5.90); RDW 12.9 % (11.5-15.5); WBC 9.6 k/uL (3.8-10.6)
[2021-02-20 13:46] LABS: ALT 93 U/L (4-49); African American GFR (CKD) 70 (>60 ml/min/1.73 sqM); Albumin 4.9 g/dL (3.5-5.0); Alcohol <10 mg/dL; Anion Gap 13 mmol/L; Blood Urea Nitrogen 35 mg/dL (9-20); Calcium 9.8 mg/dL (8.4-10.2); Carbon Dioxide 20 mmol/L (22-30); Chloride 97 mmol/L (98-107); Glucose 165 mg/dL (74-99); Lipase 220 U/L (23-300); Non-African American GFR(CKD) 60 (>60 ml/min/1.73 sqM); Sodium 130 mmol/L (137-145); Total Bilirubin 1.5 mg/dL (0.2-1.3); Total Protein 8.3 g/dL (6.3-8.2)
[2021-02-20 13:50] LABS: AST 149 U/L (17-59); Alkaline Phosphatase 54 U/L (38-126); Potassium 5.1 mmol/L (3.5-5.1)
[2021-02-20 13:59] LABS: INR 2.9 (<1.2); Partial Thromboplastin Time 27.8 sec (22.0-30.0); Prothrombin Time 28.3 sec (9.0-12.0)
[2021-02-20] MEDS ORDERED: ASPIRIN 81 MG PO STA (16:06)
[2021-02-20] MEDS ORDERED: METOCLOPRAMIDE 5 MG/ML 2 ML VIAL IVP STA (16:17)
[2021-02-20] MEDS ORDERED: LORazepam 2 MG/ML INJ IV STA (16:17)
[2021-02-20] MEDS ORDERED: PANTOPRAZOLE 40 MG/10 ML VIAL IVP STA (16:53)
[2021-02-20] MEDS ORDERED: NITROGLYCERIN SL TABS 0.4 MG TAB SUBLINGUAL PRN (16:59)
[2021-02-20] MEDS ORDERED: LORazepam 2 MG/ML INJ IV PRN ×2 (17:01)
[2021-02-20] MEDS ORDERED: THIAMINE 100 MG/ML 2 ML VIAL IM STA (17:01)
--- NOTE | 2021-02-20 18:10 | XR ---
EXAMINATION TYPE: XR chest 1V portable DATE OF EXAM: 02/20/2021 COMPARISON: 05/11/2019. HISTORY: Nausea vomiting. Elevated troponin. TECHNIQUE: Single frontal view of the chest is obtained. FINDINGS: There is no focal air space opacity, pleural effusion, or pneumothorax seen. The cardiac silhouette size is within normal limits. The osseous structures are intact. IMPRESSION: No acute process.
[2021-02-20] MEDS: PANTOPRAZOLE 40 MG/10 ML VIAL IVP SCH (21:35)
--- NOTE | 2021-02-21 00:57 | P.HPIM ---
History of Present Illness This is a pleasant 65 years old male with past medical history of hyperlipidemia, hypertension, alcohol abuse and previous cigarette smoker and depression. He is a patient of Dr. White and he follows up with Dr. Negron for his A. fib, he has also history of heart attack about 25 years ago. Presents with 2 days history of vomiting about 10 times per day. The patient could not eat or drink. Associated with watery diarrhea. Light brown about 3 times per day. No significant abdominal complaints he has some discomfort in the lower abdomen. Patient is generally weak but no fall, no syncope. 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 Vitals are stable Labs showing hemoglobin of 16.5. INR is 2.9 while he is on Coumadin. Sodium is 130. Potassium is 5.1 which is within the reference range. Creatinine is slightly elevated at 1.2 compared to baseline of 0.7-0.8 Bilirubin is slightly up to 1.5, liver enzymes slightly elevated with AST 149 and ALT 93. Troponin is slightly elevated at 0.07 and 0.08. Lipase is normal at 220. Occult blood in the stool is positive. Serum alcohol level less than 10 EKG showing normal sinus rhythm at [address]-T changes. QTC is 444 Chest x-ray: No acute process in emergency room he was given aspirin 324 mg and started on 325 mg daily. He got 1 dose of Ativan 1 mg, Reglan, Zofran, Protonix, normal saline 1 L bolus and thiamine Review of Systems CONSTITUTIONAL: No fever, no malaise, no fatigue. HEENT: No recent visual problems or hearing problems. Denied any sore throat. CARDIOVASCULAR: No orthopnea, PND, no palpitations, no syncope. PULMONARY: No shortness of breath, no cough, no hemoptysis. GASTROINTESTINAL: No diarrhea, no nausea, no vomiting, no abdominal pain. Normoactive bowel sounds. NEUROLOGICAL: No headaches, no weakness, no numbness. HEMATOLOGICAL: Denies any bleeding or petechiae. GENITOURINARY: Denies any burning micturition, frequency, or urgency. MUSCULOSKELETAL/RHEUMATOLOGICAL: Denies any joint pain, swelling, or any muscle pain. ENDOCRINE: Denies any polyuria or polydipsia. Past Medical History Past Medical History: Hyperlipidemia, Hypertension Additional Past Medical History / Comment(s): ETOH abuse History of Any Multi-Drug Resistant Organisms: None Reported Past Surgical History: Joint Replacement Additional Past Surgical History / Comment(s): left hip approximately 25 years ago Past Psychological History: Depression Smoking Status: Former smoker Past Alcohol Use History: Abuse, Daily, Heavy Past Drug Use History: None Reported Medications and Allergies Home Medications Medication Instructions Recorded Confirmed Type Simvastatin [Zocor] 80 mg PO DAILY 05/09/19 02/20/21 History Famotidine [Pepcid] 20 mg PO BID #28 tab 05/14/19 02/20/21 Rx Metoprolol Tartrate [Lopressor] 50 mg PO BID #60 tab 05/14/19 02/20/21 Rx Thiamine [Vitamin B-1] 100 mg PO BID-W/MEALS #30 tab 05/14/19 02/20/21 Rx Warfarin [Coumadin] 5 mg PO ONCE@1800 #20 tab 05/14/19 02/20/21 Rx amLODIPine [Norvasc] 10 mg PO DAILY #30 tab 05/14/19 02/20/21 Rx lisinopriL [Zestril] 20 mg PO DAILY tab 05/14/19 02/20/21 Rx Citalopram Hydrobromide [CeleXA] 10 mg PO DAILY 02/20/21 02/20/21 History Allergies Allergy/AdvReac Type Severity Reaction Status Date / Time No Known Allergies Allergy Verified 02/20/21 14:23 Physical Exam Vitals: Vital Signs Temp Pulse Resp BP Pulse Ox 02/20/21 12:04 98.2 F 76 18 158/83 96 Intake and Output 02/20/21 02/20/21 02/20/21 06:59 14:59 22:59 Other: Weight 99.79 kg GENERAL: The patient is alert and oriented x3, not in any acute distress. Well developed, well nourished. HEENT: Pupils are round and equally reacting to light. EOMI. No scleral icterus. No conjunctival pallor. Normocephalic, atraumatic. No pharyngeal erythema. No thyromegaly. CARDIOVASCULAR: S1 and S2 present. No murmurs, rubs, or gallops. PULMONARY: Chest is clear to auscultation, no wheezing or crackles. -ABDOMEN: Soft, nontender, nondistended, normoactive bowel sounds. No palpable organomegaly. Mild discomfort in the lower abdomen rather than tenderness MUSCULOSKELETAL: No joint swelling or deformity. EXTREMITIES: No cyanosis, clubbing, or pedal edema. NEUROLOGICAL: Gross neurological examination did not reveal any focal deficits. SKIN: No rashes. No petechiae Results CBC & Chem 7: 02/20/21 13:13 02/20/21 13:13 Labs: Abnormal Lab Results - Last 24 Hours (Table) 02/20/21 02/20/21 02/20/21 Range/Units 13:13 13:13 13:13 Neutrophils # 8.4 H (1.3-7.7) k/uL Lymphocytes # 0.4 L (1.0-4.8) k/uL PT 28.3 H (9.0-12.0) sec INR 2.9 H (<1.2) Sodium 130 L (137-145) mmol/L Chloride 97 L (98-107) mmol/L Carbon Dioxide 20 L (22-30) mmol/L BUN 35 H (9-20) mg/dL Glucose 165 H (74-99) mg/dL Total Bilirubin 1.5 H (0.2-1.3) mg/dL AST 149 H (17-59) U/L ALT 93 H (4-49) U/L Troponin I (0.000-0.034) ng/mL Total Protein 8.3 H (6.3-8.2) g/dL 02/20/21 02/20/21 Range/Units 13:13 16:29 Neutrophils # (1.3-7.7) k/uL Lymphocytes # (1.0-4.8) k/uL PT (9.0-12.0) sec INR (<1.2) Sodium (137-145) mmol/L Chloride (98-107) mmol/L Carbon Dioxide (22-30) mmol/L BUN (9-20) mg/dL Glucose (74-99) mg/dL Total Bilirubin (0.2-1.3) mg/dL AST (17-59) U/L ALT (4-49) U/L Troponin I 0.079 H* 0.086 H* (0.000-0.034) ng/mL Total Protein (6.3-8.2) g/dL Assessment and Plan Assessment: Elevated troponin, rule out cardiac cause Possible acute GI bleed Alcoholic abuse at-risk of alcohol withdrawal Coagulopathy secondary to Coumadin Mild acute kidney injury Mild hypovolemic hyponatremia Chronic A. fib, was on Coumadin at home Hypertension Hyperlipidemia Previous nicotine dependence History of depression, not in activation Plan: This is a pleasant 65 years old male who presents with possible GI bleed and nor mal hemoglobin while on Coumadin. Alcohol abuse at risk of withdrawal and DVT. And elevated troponin Patient is already started on aspirin, cardiology team were consulted and GI team were consulted and we will follow the recommendation Continue with Protonix Continue with CIWA protocol and thiamine Check echocardiogram and serial troponin Labs and medication were reviewed.. Continue same treatment. Continue with symptomatic treatment. Resume home medication. Monitor lytes and vitals. DVT and GI prophylaxis. Further recommendations depends on the clinical course of the patient DVT prophylaxis: Subcutaneous heparin GI Prophylaxis: Pepcid PT/OT: Pending Prognosis is guarded
[2021-02-21 02:10] LABS: INR 2.3 (<1.2); Prothrombin Time 22.1 sec (9.0-12.0)
[2021-02-21 05:56] LABS: Basophils % (A) 0 %; Eosinophils % (A) 0 %; HCT 42.9 % (39.0-53.0); HGB 14.1 gm/dL (13.0-17.5); Lymphocytes # (A) 0.7 k/uL (1.0-4.8); Lymphocytes % (A) 11 %; MCH 32.4 pg (25.0-35.0); MCHC 32.9 g/dL (31.0-37.0); MCV 98.4 fL (80.0-100.0); Mean Platelet Volume 8.5; Monocytes # (A) 0.5 k/uL (0-1.0); Monocytes % (A) 7 %; Neutrophils # (A) 5.2 k/uL (1.3-7.7); Neutrophils % (A) 80 %; Platelet Count 145 k/uL (150-450); RBC 4.36 m/uL (4.30-5.90); RDW 13.8 % (11.5-15.5); WBC 6.5 k/uL (3.8-10.6)
[2021-02-21 06:10] LABS: Albumin 3.8 g/dL (3.5-5.0); Bilirubin, Delta 0.1 mg/dL (0.0-0.2); Bilirubin,Unconjugated 1.2 mg/dL (0.0-1.1); Magnesium 1.9 mg/dL (1.6-2.3); Potassium 4.3 mmol/L (3.5-5.1); Total Bilirubin 1.3 mg/dL (0.2-1.3); Total Protein 6.4 g/dL (6.3-8.2)
[2021-02-21] MEDS: PANTOPRAZOLE 40 MG/10 ML VIAL IVP SCH ×2 (11:28→20:53)
[2021-02-21] MEDS: LORazepam 2 MG/ML INJ IV PRN ×2 (11:29→17:09)
[2021-02-21] MEDS: CITALOPRAM HYDROBROMIDE 10 MG TAB PO SCH (11:29)
[2021-02-21] MEDS: ASPIRIN 325 MG TAB PO SCH (11:29)
[2021-02-21] MEDS: THIAMINE 100 MG TAB PO SCH ×2 (11:29→17:09)
[2021-02-21] MEDS: METOPROLOL TARTRATE 50 MG TAB PO SCH ×2 (11:29→20:53)
--- NOTE | 2021-02-21 11:36 | P.CRDCN ---
History of Present Illness Consult date: 02/21/21 Requesting physician: Abraham E Sheet Reason for Consult (text): Abnormal troponin Chief complaint: Vomiting and diarrhea History of present illness: This is a 65-year-old gentleman with past medical history significant for coronary artery disease and prior myocardial infarction in 1996, hypertension, hyperlipidemia, alcohol abuse. He follows with Dr. Jones in the office. Patient also has a known history of paroxysmal atrial fibrillation and depression. The patient presented to the emergency room with symptoms of vomiting and diarrhea. According to the patient he's had at least 5-10 episodes of vomiting over the past couple of days and has been unable to eat or drink. He also has been having frequent loose stools, light brown in color. Patient states he's been quite depressed, he continues to drink a minimum of 6 beers a day, he denies smoking or drug use. Blood pressure 100/60 heart rate in the 80s respirations 16 temperature 97.7 he's 95% on room air. White blood cell count 9.6, hemoglobin 16.5, platelet count 196. INR 2.9 on admission, 2.3 this morning sodium 1:30, potassium 5.1, BUN 35, creatinine 1.2. AST 149 ALT 93, troponins 0.07, 0.08, 0.07. Stool for occult blood was positive. Serum alcohol level less than 10. EKG on presentation here shows normal sinus rhythm with occasional PACs, inferior Q waves noted. Chest x-ray does not reveal any acute process. Patient did have an echocardiogram with Doppler study performed in May 2019 which revealed an ejection fraction of 50-55%. Cardiology consultation was requested on this admission because of abnormality in troponin. Patient denies having any chest discomfort and is breathing overall has been stable. Past Medical History Past Medical History: Hyperlipidemia, Hypertension Additional Past Medical History / Comment(s): ETOH abuse History of Any Multi-Drug Resistant Organisms: None Reported Past Surgical History: Joint Replacement Additional Past Surgical History / Comment(s): left hip approximately 25 years ago Past Anesthesia/Blood Transfusion Reactions: No Reported Reaction Past Psychological History: Depression Smoking Status: Former smoker Past Alcohol Use History: Abuse, Daily, Heavy Past Drug Use History: None Reported - Past Family History Father Family Medical History: No Reported History Mother Family Medical History: No Reported History Medications and Allergies Home Medications Medication Instructions Recorded Confirmed Type Simvastatin [Zocor] 80 mg PO DAILY 05/09/19 02/20/21 History Famotidine [Pepcid] 20 mg PO BID #28 tab 05/14/19 02/20/21 Rx Metoprolol Tartrate [Lopressor] 50 mg PO BID #60 tab 05/14/19 02/20/21 Rx Thiamine [Vitamin B-1] 100 mg PO BID-W/MEALS #30 tab 05/14/19 02/20/21 Rx Warfarin [Coumadin] 5 mg PO ONCE@1800 #20 tab 05/14/19 02/20/21 Rx amLODIPine [Norvasc] 10 mg PO DAILY #30 tab 05/14/19 02/20/21 Rx lisinopriL [Zestril] 20 mg PO DAILY tab 05/14/19 02/20/21 Rx Citalopram Hydrobromide [CeleXA] 10 mg PO DAILY 02/20/21 02/20/21 History Allergies Allergy/AdvReac Type Severity Reaction Status Date / Time No Known Allergies Allergy Verified 02/20/21 14:23 Physical Exam Vitals: Vital Signs Temp Pulse Pulse Resp BP BP Pulse Ox 02/21/21 03:41 97.7 F 86 16 100/64 95 02/21/21 02:00 16 02/20/21 21:00 66 16 148/83 02/20/21 20:00 70 15 167/84 02/20/21 19:00 71 16 164/100 02/20/21 18:00 70 17 175/82 02/20/21 17:00 70 15 159/88 02/20/21 16:00 73 16 170/91 02/20/21 15:00 74 14 170/91 02/20/21 14:00 75 16 170/91 02/20/21 12:04 98.2 F 76 18 158/83 96 Intake and Output 02/20/21 02/21/21 02/21/21 22:59 06:59 14:59 Output Total 500 Balance -500 Output: Urine 500 Other: Weight 99.79 kg PHYSICAL EXAMINATION: GENERAL: 65-year-old gentleman in no acute distress at the time of my examination HEENT: Head is atraumatic, normocephalic. Pupils equal, round. Sclera anicteric. Conjunctiva are clear. Mucous membranes of the mouth are moist. Nec k is supple. There is no elevated jugular venous pressure. No carotid bruit is heard. HEART EXAMINATION: Heart S1, S2 normal. No murmur or gallop heard. CHEST EXAMINATION: Lungs are clear to auscultation and precussion. No chest wall tenderness is noted on palpation or with deep breathing. ABDOMEN: Soft, nontender. Bowel sounds are heard. No organomegaly noted. EXTREMITIES: 2+ peripheral pulses with no evidence of peripheral edema and no calf tenderness noted. NEUROLOGIC patient is awake, alert and oriented 3 . . Results 02/21/21 05:39 02/21/21 05:39 Cardiac Enzymes 02/20/21 02/20/21 02/20/21 Range/Units 13:13 13:13 16:29 AST 149 H (17-59) U/L Troponin I 0.079 H* 0.086 H* (0.000-0.034) ng/mL 02/20/21 02/21/21 Range/Units 19:21 05:39 AST 88 H (17-59) U/L Troponin I 0.077 H* (0.000-0.034) ng/mL Coagulation 02/20/21 02/21/21 Range/Units 13:13 01:47 PT 28.3 H 22.1 H (9.0-12.0) sec APTT 27.8 (22.0-30.0) sec Lipids 02/21/21 Range/Units 05:39 Triglycerides 94 (<150) mg/dL Cholesterol 139 (<200) mg/dL HDL Cholesterol 60 (40-60) mg/dL CBC 02/20/21 02/21/21 Range/Units 13:13 05:39 WBC 9.6 6.5 (3.8-10.6) k/uL RBC 4.89 4.36 (4.30-5.90) m/uL Hgb 16.5 14.1 (13.0-17.5) gm/dL Hct 46.3 42.9 (39.0-53.0) % Plt Count 196 145 L (150-450) k/uL Comprehensive Metabolic Panel 02/20/21 02/21/21 Range/Units 13:13 05:39 Sodium 130 L 132 L (137-145) mmol/L Potassium 5.1 4.3 (3.5-5.1) mmol/L Chloride 97 L 101 (98-107) mmol/L Carbon Dioxide 20 L 24 (22-30) mmol/L BUN 35 H 30 H (9-20) mg/dL Creatinine 1.24 1.11 (0.66-1.25) mg/dL Glucose 165 H 95 (74-99) mg/dL Calcium 9.8 9.0 (8.4-10.2) mg/dL Unconjugated Bilirubin 1.2 H (0.0-1.1) mg/dL AST 149 H 88 H (17-59) U/L ALT 93 H 65 H (4-49) U/L Alkaline Phosphatase 54 47 (38-126) U/L Total Protein 8.3 H 6.4 (6.3-8.2) g/dL Albumin 4.9 3.8 (3.5-5.0) g/dL Current Medications Generic Name Dose Route Start Last Admin Trade Name Freq PRN Reason Stop Dose Admin Aspirin 325 mg 02/21/21 09:00 Aspirin 325 Mg Tab PO DAILY MOHINDER Citalopram Hydrobromide 10 mg 02/21/21 09:00 Citalopram Hydrobromide 10 Mg Tab PO DAILY MOHINDER Lorazepam 1 mg 02/20/21 17:01 Lorazepam 2 Mg/Ml Inj IV Q2HR PRN CIWA 8 or 9 Lorazepam 1 mg 02/20/21 17:01 02/20/21 21:35 Lorazepam 2 Mg/Ml Inj IV 1 mg Q1HR PRN Administration CIWA 10 to 15 Lorazepam 2 mg 02/20/21 17:01 Lorazepam 2 Mg/Ml Inj IV 02/22/21 17:01 Q10M PRN CIWA 16 or higher Metoprolol Tartrate 50 mg 02/21/21 09:00 Metoprolol Tartrate 50 Mg Tab PO BID MOHINDER Nitroglycerin 0.4 mg 02/20/21 16:59 Nitroglycerin Sl Tabs 0.4 Mg Tab SUBLINGUAL Q5M PRN Chest Pain Pantoprazole Sodium 40 mg 02/20/21 21:00 02/21/21 11:28 Pantoprazole 40 Mg/10 Ml Vial IVP 40 mg Q12H MOHINDER Administration Thiamine HCl 100 mg 02/21/21 07:30 Thiamine 100 Mg Tab PO BID-W/MEALS MOHINDER Intake and Output 02/20/21 02/21/21 02/21/21 22:59 06:59 14:59 Output Total 500 Balance -500 Output: Urine 500 Other: Weight 99.79 kg 02/21/21 05:39 02/21/21 05:39 EKG Interpretations (text) EKG shows normal sinus rhythm with occasional PACs, inferior Q waves noted. Assessment and Plan Plan: Assessment and plan #1 symptoms of persistent vomiting and diarrhea for 2 day duration, rule out GI bleed #2 abnormality in troponin, no significant rise or fall to suggest acute coronary syndrome. Patient denies having any chest discomfort. EKG shows a normal sinus rhythm with occasional PACs, no acute changes noted. #3 alcohol abuse #4 paroxysmal atrial fibrillation, on Coumadin for anticoagulation #5 hypertension #6 hyperlipidemia #7 prior history of nicotine dependence #8 depression Plan We will repeat an echocardiogram with Doppler study, patient's echo that was performed in May 2019 revealed an ejection fraction of 50-55%. Continue to monitor hemoglobin closely. Monitor daily INRs. Further recommendations to follow. DNP note has been reviewed, I agree with a documented findings and plan of care. Patient was seen and examined.
--- NOTE | 2021-02-21 12:50 | P.CONS ---
History of Present Illness - Reason for Consult Consult date: 02/21/21 Diarrhea, vomiting Requesting physician: Abraham E Sheet - Chief Complaint Nausea, vomiting, diarrhea - History of Present Illness 65-year-old male with multiple medical comorbidities including hyperlipidemia, hypertension, alcohol abuse, depression, coronary artery disease with prior [place] who presented to the hospital due to nausea, vomiting and diarrhea. The patient reports symptoms over the past 3-4 days. He reports that he was having extreme vomiting with up to 40 episodes of vomiting prior to presentation. He reports he was bringing up food, as well as gastric secretions. He denies any hematemesis or coffee-ground emesis. He also reports loose watery bowel m ovements. He does feel that they've become slightly darker today. He denies any sick contacts, unusual foods or travel, any new medications prior to developing the symptoms. He denies any fevers or chills. Chest x-ray performed in evaluation was negative. Stool testing was positive for occult blood. Laboratory evaluation significant for hemoglobin of 14.1 and stable from presentation, WBC 6.5, platelet count 145,000, INR 2.3, total bilirubin 1.3, alkaline phosphatase 47, AST 88 and ALT 65. Previously has been hospitalized and treated for alcohol withdrawal. Generally he is been drinking 6-7 beers nightly this is been over the past 2 years, previously to that he had been drinking the same amount for 5-6 years but it stopped for a short while. Review of Systems REVIEW OF SYSTEMS: CONSTITUTIONAL: Denies any fevers, chills, weight change or fatigue. CARDIOVASCULAR: Denies any chest pain, palpitations high or low blood pressures RESPIRATORY: Denies any shortness of breath, hemoptysis or cough. GENITOURINARY: No dysuria or hematuria. MUSCULOSKELETAL: No weakness reported. SKIN: Denies any new rashes or lesions, jaundice or pallor. PSYCHIATRIC: Denies any depression or anxiety. NEUROLOGY: Denies headache, denies any new focal deficits. EARS/NOSE/THROAT: No recent hearing change, congestion, nasal discharge or sore throat. EYES: No pain in eyes, discharge or change in vision. GASTROINTESTINAL: As per HPI. Past Medical History Past Medical History: Hyperlipidemia, Hypertension Additional Past Medical History / Comment(s): ETOH abuse History of Any Multi-Drug Resistant Organisms: None Reported Past Surgical History: Joint Replacement Additional Past Surgical History / Comment(s): left hip approximately 25 years ago Past Anesthesia/Blood Transfusion Reactions: No Reported Reaction Past Psychological History: Depression Smoking Status: Former smoker Past Alcohol Use History: Abuse, Daily, Heavy Past Drug Use History: None Reported - Past Family History Father Family Medical History: No Reported History Mother Family Medical History: No Reported History Medications and Allergies Home Medications Medication Instructions Recorded Confirmed Type Simvastatin [Zocor] 80 mg PO DAILY 05/09/19 02/20/21 History Famotidine [Pepcid] 20 mg PO BID #28 tab 05/14/19 02/20/21 Rx Metoprolol Tartrate [Lopressor] 50 mg PO BID #60 tab 05/14/19 02/20/21 Rx Thiamine [Vitamin B-1] 100 mg PO BID-W/MEALS #30 tab 05/14/19 02/20/21 Rx Warfarin [Coumadin] 5 mg PO ONCE@1800 #20 tab 05/14/19 02/20/21 Rx amLODIPine [Norvasc] 10 mg PO DAILY #30 tab 05/14/19 02/20/21 Rx lisinopriL [Zestril] 20 mg PO DAILY tab 05/14/19 02/20/21 Rx Citalopram Hydrobromide [CeleXA] 10 mg PO DAILY 02/20/21 02/20/21 History Allergies Allergy/AdvReac Type Severity Reaction Status Date / Time No Known Allergies Allergy Verified 02/20/21 14:23 Physical Exam Vitals: Vital Signs Temp Pulse Pulse Resp BP BP Pulse Ox 02/21/21 03:41 97.7 F 86 16 100/64 95 02/21/21 02:00 16 02/20/21 21:00 66 16 148/83 02/20/21 20:00 70 15 167/84 02/20/21 19:00 71 16 164/100 02/20/21 18:00 70 17 175/82 02/20/21 17:00 70 15 159/88 02/20/21 16:00 73 16 170/91 02/20/21 15:00 74 14 170/91 02/20/21 14:00 75 16 170/91 02/20/21 12:04 98.2 F 76 18 158/83 96 Intake and Output 02/20/21 02/21/21 02/21/21 22:59 06:59 14:59 Output Total 500 Balance -500 Output: Urine 500 Other: Weight 99.79 kg On physical examination, patient appears comfortable in no apparent distress. HEAD: Normocephalic, atraumatic. EYES: No scleral icterus. No conjunctival injection. MOUTH: No lesions, tongue midline. NECK: Trachea midline, no gross abnormalities. CHEST: Clear to auscultation with no wheezing or rhonchi appreciated. HEART: S1-S2 appreciated. ABDOMEN: Soft, obese, nontender to palpation. Bowel sounds are positive. No organomegaly. No guarding or rigidity. EXTREMITIES: No pedal edema. SKIN: No rashes, no jaundice. NEUROLOGIC: Alert and oriented x3. No focal deficits. Results CBC & Chem 7: 02/21/21 05:39 02/21/21 05:39 Labs: Abnormal Lab Results - Last 24 Hours (Table) 02/20/21 02/20/21 02/20/21 Range/Units 13:13 13:13 13:13 Plt Count (150-450) k/uL Neutrophils # 8.4 H (1.3-7.7) k/uL Lymphocytes # 0.4 L (1.0-4.8) k/uL PT 28.3 H (9.0-12.0) sec INR 2.9 H (<1.2) Sodium 130 L (137-145) mmol/L Chloride 97 L (98-107) mmol/L Carbon Dioxide 20 L (22-30) mmol/L BUN 35 H (9-20) mg/dL Glucose 165 H (74-99) mg/dL Total Bilirubin 1.5 H (0.2-1.3) mg/dL Unconjugated Bilirubin (0.0-1.1) mg/dL AST 149 H (17-59) U/L ALT 93 H (4-49) U/L Troponin I (0.000-0.034) ng/mL Total Protein 8.3 H (6.3-8.2) g/dL 02/20/21 02/20/21 02/20/21 Range/Units 13:13 16:29 19:21 Plt Count (150-450) k/uL Neutrophils # (1.3-7.7) k/uL Lymphocytes # (1.0-4.8) k/uL PT (9.0-12.0) sec INR (<1.2) Sodium (137-145) mmol/L Chloride (98-107) mmol/L Carbon Dioxide (22-30) mmol/L BUN (9-20) mg/dL Glucose (74-99) mg/dL Total Bilirubin (0.2-1.3) mg/dL Unconjugated Bilirubin (0.0-1.1) mg/dL AST (17-59) U/L ALT (4-49) U/L Troponin I 0.079 H* 0.086 H* 0.077 H* (0.000-0.034) ng/mL Total Protein (6.3-8.2) g/dL 02/21/21 02/21/21 02/21/21 Range/Units 01:47 05:39 05:39 Plt Count 145 L (150-450) k/uL Neutrophils # (1.3-7.7) k/uL Lymphocytes # 0.7 L (1.0-4.8) k/uL PT 22.1 H (9.0-12.0) sec INR 2.3 H (<1.2) Sodium 132 L (137-145) mmol/L Chloride (98-107) mmol/L Carbon Dioxide (22-30) mmol/L BUN 30 H (9-20) mg/dL Glucose (74-99) mg/dL Total Bilirubin (0.2-1.3) mg/dL Unconjugated Bilirubin 1.2 H (0.0-1.1) mg/dL AST 88 H (17-59) U/L ALT 65 H (4-49) U/L Troponin I (0.000-0.034) ng/mL Total Protein (6.3-8.2) g/dL Chest x-ray: report reviewed (No acute process noted on chest x-ray) Assessment and Plan (1) Nausea and vomiting Narrative/Plan: 65-year-old male with a known history of alcohol abuse who presented to the hospital with nausea and vomiting and diarrhea. Reporting multiple episodes of nonbloody emesis as well as loose nonbloody bowel movements. Hemoglobin stable at 14.1, however stool testing was positive for occult blood. He denied any sick contacts, unusual foods, new medications or other exposures. No fevers or chills reported. Currently feeling somewhat better after IV hydration. Chest x-ray performed in evaluation negative for any acute process. Unclear etiology, may be related to bacterial or viral gastroenteritis, alcohol abuse or other etiology. Current Visit: Yes Status: Acute Code(s): R11.2 - NAUSEA WITH VOMITING, UNSPECIFIED SNOMED Code(s): 40831740 (2) Diarrhea Current Visit: Yes Status: Acute Code(s): R19.7 - DIARRHEA, UNSPECIFIED SN OMED Code(s): 48147782 (3) Alcohol abuse Current Visit: Yes Status: Acute Code(s): F10.10 - ALCOHOL ABUSE, UNCOMPLICATED SNOMED Code(s): 29053112 Plan: Supportive care Clear liquid diet Continue to monitor CBC, BMP, LFTs Continue Protonix 40 mg twice daily Tigan 300 mg 3 times a day added Continue to monitor for signs and symptoms of alcohol withdrawal and treat Alcohol abstinence recommended and discussed with the patient No plan for endoscopy at this time Thank you for allowing us to participate in the care of the patient
--- NOTE | 2021-02-21 15:32 | P.PN ---
Subjective This is a pleasant 65 years old male with past medical history of hyperlipidemia, hypertension, alcohol abuse and previous cigarette smoker and depression. He is a patient of Dr. hWite and he follows up with Dr. Negron for his A. fib, he has also history of heart attack about 25 years ago. Presents with 2 days history of vomiting about 10 times per day. The patient could not eat or drink. Associated with watery diarrhea. Light brown about 3 times per day. No significant abdominal complaints he has some discomfort in the lower abdomen. Patient is generally weak but no fall, no syncope. 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 Vitals are stable Labs showing hemoglobin of 16.5. INR is 2.9 while he is on Coumadin. Sodium is 130. Potassium is 5.1 which is within the reference range. Creatinine is slightly elevated at 1.2 compared to baseline of 0.7-0.8 Bilirubin is slightly up to 1.5, liver enzymes slightly elevated with AST 149 and ALT 93. Troponin is slightly elevated at 0.07 and 0.08. Lipase is normal at 220. Occult blood in the stool is positive. Serum alcohol level less than 10 EKG showing normal sinus rhythm at [address]-T changes. QTC is 444 Chest x-ray: No acute process in emergency room he was given aspirin 324 mg and started on 325 mg daily. He got 1 dose of Ativan 1 mg, Reglan, Zofran, Protonix, normal saline 1 L bolus and thiamine 02/21/2021 Patient diarrhea stopped, no vomiting but he has little nausea, he remains nothing by mouth this morning. Pending orthopedic surgery team evaluation. 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 Objective - Vital Signs Vital signs: Vital Signs Temp 97.7 F 02/21/21 08:00 Pulse 85 02/21/21 11:00 Resp 16 02/21/21 11:00 BP 127/86 02/21/21 11:00 Pulse Ox 95 02/21/21 11:00 Intake & Output 02/20/21 02/21/21 02/21/21 18:59 06:59 18:59 Output Total 500 Balance -500 Weight 99.79 kg 99.79 kg Output: Urine 500 - Exam GENERAL: The patient is alert and oriented x3, not in any acute distress. Well developed, well nourished. HEENT: Pupils are round and equally reacting to light. EOMI. No scleral icterus. No conjunctival pallor. Normocephalic, atraumatic. No pharyngeal erythema. No thyromegaly. CARDIOVASCULAR: S1 and S2 present. No murmurs, rubs, or gallops. PULMONARY: Chest is clear to auscultation, no wheezing or crackles. ABDOMEN: Soft, nontender, nondistended, normoactive bowel sounds. No palpable organomegaly. MUSCULOSKELETAL: No joint swelling or deformity. EXTREMITIES: No cyanosis, clubbing, or pedal edema. NEUROLOGICAL: Gross neurological examination did not reveal any focal deficits. SKIN: No rashes. no petechiae. - Labs CBC & Chem 7: 02/21/21 05:39 02/21/21 05:39 Labs: Abnormal Lab Results - Last 24 Hours (Table) 02/20/21 02/20/21 02/21/21 Range/Units 16:29 19:21 01:47 Plt Count (150-450) k/uL Lymphocytes # (1.0-4.8) k/uL PT 22.1 H (9.0-12.0) sec INR 2.3 H (<1.2) Sodium (137-145) mmol/L BUN (9-20) mg/dL Unconjugated Bilirubin (0.0-1.1) mg/dL AST (17-59) U/L ALT (4-49) U/L Troponin I 0.086 H* 0.077 H* (0.000-0.034) ng/mL 02/21/21 02/21/21 Range/Units 05:39 05:39 Plt Count 145 L (150-450) k/uL Lymphocytes # 0.7 L (1.0-4.8) k/uL PT (9.0-12.0) sec INR (<1.2) Sodium 132 L (137-145) mmol/L BUN 30 H (9-20) mg/dL Unconjugated Bilirubin 1.2 H (0.0-1.1) mg/dL AST 88 H (17-59) U/L ALT 65 H (4-49) U/L Troponin I (0.000-0.034) ng/mL Assessment and Plan Assessment: Elevated troponin, does not follow cardiac disease better Possible acute GI bleed Alcoholic abuse at-risk of alcohol withdrawal Coagulopathy secondary to Coumadin Mild acute kidney injury Mild hypovolemic hyponatremia Chronic A. fib, was on Coumadin at home Hypertension Hyperlipidemia Previous nicotine dependence History of depression, not in activation Plan: This is a pleasant 65 years old male who presents with possible GI bleed and normal hemoglobin while on Coumadin. Alcohol abuse at risk of withdrawal and DVT. And elevated troponin Patient is already started on aspirin, cardiology team were consulted and GI team were consulted and we will follow the recommendation Continue with Protonix Continue with CIWA protocol and thiamine Check echocardiogram and serial troponin Labs and medication were reviewed.. Continue same treatment. Continue with symptomatic treatment. Resume home medication. Monitor lytes and vitals. DVT and GI prophylaxis. Further recommendations depends on the clinical course of the patient DVT prophylaxis: Subcutaneous heparin GI Prophylaxis: Pepcid PT/OT: Pending Prognosis is guarded
[2021-02-21] MEDS: TRIMETHOBENZAMIDE 300 MG CAP PO SCH ×2 (17:16→20:54)
[2021-02-22 04:46] LABS: Basophils % (A) 1 %; Eosinophils # (A) 0.1 k/uL (0-0.7); Eosinophils % (A) 1 %; HCT 42.4 % (39.0-53.0); Lymphocytes % (A) 19 %; MCHC 35.5 g/dL (31.0-37.0); MCV 95.7 fL (80.0-100.0); Mean Platelet Volume 8.4; Monocytes # (A) 0.5 k/uL (0-1.0); Monocytes % (A) 9 %; Neutrophils # (A) 3.5 k/uL (1.3-7.7); Neutrophils % (A) 68 %; Platelet Count 146 k/uL (150-450); RBC 4.43 m/uL (4.30-5.90); RDW 12.7 % (11.5-15.5); WBC 5.1 k/uL (3.8-10.6)
[2021-02-22 05:03] LABS: ALT 60 U/L (4-49); AST 73 U/L (17-59); African American GFR (CKD) 78 (>60 ml/min/1.73 sqM); Albumin 3.7 g/dL (3.5-5.0); Albumin/Globulin Ratio 1.4; Alkaline Phosphatase 55 U/L (38-126); Anion Gap 9 mmol/L; Bilirubin,Unconjugated 1.1 mg/dL (0.0-1.1); Blood Urea Nitrogen 22 mg/dL (9-20); Calcium 9.1 mg/dL (8.4-10.2); Carbon Dioxide 23 mmol/L (22-30); Chloride 101 mmol/L (98-107); Globulin 2.7 g/dL; Glucose 85 mg/dL (74-99); Magnesium 1.8 mg/dL (1.6-2.3); Non-African American GFR(CKD) 67 (>60 ml/min/1.73 sqM); Potassium 4.3 mmol/L (3.5-5.1); Sodium 133 mmol/L (137-145); Total Bilirubin 1.3 mg/dL (0.2-1.3); Total Protein 6.4 g/dL (6.3-8.2)
[2021-02-22] MEDS: TRIMETHOBENZAMIDE 300 MG CAP PO SCH (08:09)
[2021-02-22] MEDS: THIAMINE 100 MG TAB PO SCH (08:09)
[2021-02-22] MEDS: METOPROLOL TARTRATE 50 MG TAB PO SCH (08:09)
[2021-02-22] MEDS: PANTOPRAZOLE 40 MG/10 ML VIAL IVP SCH (08:09)
[2021-02-22] MEDS: CITALOPRAM HYDROBROMIDE 10 MG TAB PO SCH (09:23)
[2021-02-22] MEDS: ASPIRIN 325 MG TAB PO SCH (09:23)
--- NOTE | 2021-02-22 12:21 | ECHOF ---
Referral Reason:Rule out heart disease MEASUREMENTS -------- HEIGHT: 182.9 cm WEIGHT: 99.8 kg BP: 147/88 RVIDd: 3.4 cm (< 3.3) IVSd: 1.4 cm (0.6 - 1.1) LVIDd: 5.1 cm (3.9 - 5.3) LVPWd: 1.5 cm (0.6 - 1.1) IVSs: 2.0 cm LVIDs: 4.2 cm LVPWs: 2.0 cm LA Diam: 3.8 cm (2.7 - 3.8) LAESV Index (A-L): 24.73 ml/m Ao Diam: 3.5 cm (2.0 - 3.7) AV Cusp: 2.2 cm (1.5 - 2.6) MV EXCURSION: 13.189 mm (> 18.000) MV EF SLOPE: 38 mm/s (70 - 150) EPSS: 1.5 cm MV E Sean: 0.42 m/s MV DecT: 334 ms MV A Sean: 0.83 m/s MV E/A Ratio: 0.50 RAP: 5.00 mmHg RVSP: 34.87 mmHg FINDINGS -------- Sinus rhythm. This was a technically difficult study with suboptimal views. The left ventricular size is normal. There is moderate concentric left ventricular hypertrophy. O verall left ventricular systolic function is moderate-severely impaired with, an EF between 30 - 35 % . Basal lateral LV wall motion is hypokinetic. Mid lateral LV wall motion is hypokinetic. Mid inferior LV wall motion is hypokinetic. Apical lateral LV wall motion is hypokinetic. Apical i nferior LV wall motion is hypokinetic. The right ventricle is mildly enlarged. Normal LA size by volume 22+/-6 ml/m2. The right atrium is normal in size. 5 ml of Lumason was utilized for enhancement of images. There is mild aortic valve sclerosis. The mitral valve is normal. Mild tricuspid regurgitation present. There is mild pulmonary hypertension. The right ventricular systolic pressure, as measured by Doppler, is 34.87mmHg. There is no pulmonic regurgitation present. The aortic root size is normal. IVC Not well visulized. There is no pericardial effusion. CONCLUSIONS -------- 1. The left ventricular size is normal. 2. There is moderate concentric left ventricular hypertrophy. 3. Overall left ventricular systolic function is moderate-severely impaired with, an EF between 30 - 35 %. 4. Basal lateral LV wall motion is hypokinetic. 5. Mid lateral LV wall motion is hypokinetic. 6. Mid inferior LV wall motion is hypokinetic. 7. Apical lateral LV wall motion is hypokinetic. 8. Apical inferior LV wall motion is hypokinetic. 9. The right ventricle is mildly enlarged. 10. Normal LA size by volume 22+/-6 ml/m2. 11. 5 ml of Lumason was utilized for enhancement of images. 12. There is mild aortic valve sclerosis. 13. Mild tricuspid regurgitation present. 14. There is mild pulmonary hypertension. 15. The right ventricular systolic pressure, as measured by Doppler, is 34.87mmHg. 16. There is no pericardial effusion. ANTHROPOLOGY PROFESSOR: Olivia Stratton RDCS
[2021-02-22 12:36] VITALS: BP 138/85; PULSE 67; RESP 17; TEMP 98.3
--- NOTE | 2021-02-22 12:49 | P.PN ---
Subjective Progress Note Date: 02/22/21 Principal diagnosis: nausea, vomiting,and diarrhea This is a 65-year-old male with multiple medical comorbidities who presented to the hospital with complaints of nausea vomiting and diarrhea. He reports that his symptoms started and lasted for approximately 3-4 days. He said at one point he was having extreme vomiting with up to 40 episodes of vomiting prior to hospitalization. He denied any coffee-ground emesis or hematemesis. He states his having multiple episodes of diarrhea which he stated was watery. He has had no further vomiting since Monday. He is only having 2-3 bowel movements a day now, which are beginning to be formed and dark. Stool studies were ordered however were not sent. Objective - Vital Signs Vital signs: Vital Signs Temp 98.1 F 02/22/21 04:00 Pulse 74 02/22/21 04:00 Resp 16 02/22/21 04:00 BP 147/88 02/22/21 04:00 Pulse Ox 95 02/22/21 04:00 Intake & Output 02/21/21 02/22/21 02/22/21 18:59 06:59 18:59 Intake Total 480 400 Balance 480 400 Intake: Oral 480 400 Other: Voiding Method Toilet # Voids 3 # Bowel Movements 1 - Exam General appearance: The patient is alert, oriented, appears in no acute distress. HET: Head is normocephalic and atraumatic. Conjunctiva pink. Sclera anicteric. Neck: Supple without lymphadenopathy. Abdomen: Soft, nontender, nondistended with bowel sounds. No guarding or rigidity. Extremities: Normal skin color and turgor. No pedal edema Skin: No rashes, no jaundice Neurological: No focal deficits. Alert and oriented 3. - Labs CBC & Chem 7: 02/22/21 04:05 02/22/21 04:05 Labs: Abnormal Lab Results - Last 24 Hours (Table) 02/22/21 02/22/21 Range/Units 04:05 04:05 Plt Count 146 L (150-450) k/uL Sodium 133 L (137-145) mmol/L BUN 22 H (9-20) mg/dL AST 73 H (17-59) U/L ALT 60 H (4-49) U/L Assessment and Plan (1) Nausea and vomiting Narrative/Plan: 65-year-old male with a known history of alcohol abuse who presented to the hospital with nausea and vomiting and diarrhea. Reporting multiple episodes of nonbloody emesis as well as loose nonbloody bowel movements. Hemoglobin stable at 14.1, however stool testing was positive for occult blood. He denied any sick contacts, unusual foods, new medications or other exposures. No fevers or chills reported. Currently feeling somewhat better after IV hydration. Chest x-ray performed in evaluation negative for any acute process. Unclear etiology, may be related to bacterial or viral gastroenteritis, alcohol abuse or other etiology. Current Visit: Yes Status: Acute Code(s): R11.2 - NAUSEA WITH VOMITING, UNSPECIFIED SNOMED Code(s): 21868317 (2) Diarrhea Current Visit: Yes Status: Acute Code(s): R19.7 - DIARRHEA, UNSPECIFIED SNOMED Code(s): 12592363 (3) Alcohol abuse Current Visit: Yes Status: Acute Code(s): F10.10 - ALCOHOL ABUSE, UNCOMPL ICATED SNOMED Code(s): 41865044 Plan: 1. Supportive care 2. Advance to low fiber diet 3. Continue to monitor CBC, BMP, LFTs 4. Continue Protonix 40 mg twice daily 5. Tigan 300 mg 3 times a day added 6. Continue to monitor for signs and symptoms of alcohol withdrawal and treat 7. Alcohol abstinence recommended and discussed with the patient 8. No plan for endoscopy at this time Thank you for this consultation, he may be discharged home with outpatient GI follow-up Dr. Ibeth Sanders I agree with the dictator's note, documented as a scribe by Michell Garcia.
[2021-02-22] MEDS ORDERED: AMOXIC-POT CLAV 875-125MG 1 EACH TAB PO SCH (13:00)
--- NOTE | 2021-02-22 14:18 | P.PN ---
Subjective Progress Note Date: 02/22/21 HISTORY OF PRESENT ILLNESS: Patient examined this morning at the beside. Patient denies chest pain or pressure. Denies shortness of breath. Patient states his nausea, vomiting, and diarrhea resolved. Hemoglobin 15.0. Echocardiogram completed reveals ejection fraction 30-35%, lateral and inferior LV wall hypokinesis, mild tricuspid regurgitation, and mild pulmonary hypertension. PHYSICAL EXAM: VITAL SIGNS: Reviewed. GENERAL: Well-developed in no acute distress. NECK: Supple. No JVD or thyromegaly LUNGS: Respirations even and unlabored. Lungs essentially clear to auscultation bilaterally. HEART: Regular rate and rhythm. S1 and S2 heard. EXTREMITIES: Normal range of motion. No clubbing or cyanosis. Peripheral pulses intact. No lower extremity edema ASSESSMENT: Nausea, vomiting, and diarrhea, now resolved Paroxysmal atrial fibrillation, on anticoagulation with Coumadin Hypertension Hyperlipidemia Alcohol abuse Abnormal troponins, no evidence of acute coronary syndrome Depression Former nicotine dependence PLAN: Continue anticoagulation with Coumadin Continue aspirin, lopressor, Zocor, lisinopril, and amlodipine Patient with decreased EF which is new compared to old echo. Patient denies chest pain or pressure. He is to follow up outpatient with Dr. Jones. He will require outpatient s tress test versus cardiac cath. Patient is currently stable for DC from a cardiac standpoint Nurse practitioner note has been reviewed by physician. Signing provider agrees with the documented findings, assessment, and plan of care. Objective - Vital Signs Vital signs: Vital Signs Temp 98.3 F 02/22/21 12:35 Pulse 67 02/22/21 12:35 Resp 17 02/22/21 12:35 BP 138/85 02/22/21 12:35 Pulse Ox 96 02/22/21 12:35 Intake & Output 02/21/21 02/22/21 02/22/21 18:59 06:59 18:59 Intake Total 480 400 Balance 480 400 Intake: Oral 480 400 Other: Voiding Method Toilet # Voids 3 # Bowel Movements 1 - Labs CBC & Chem 7: 02/22/21 04:05 02/22/21 04:05 Labs: Abnormal Lab Results - Last 24 Hours (Table) 02/22/21 02/22/21 02/22/21 Range/Units 04:05 04:05 04:05 Plt Count 146 L (150-450) k/uL Sodium 133 L (137-145) mmol/L BUN 22 H (9-20) mg/dL AST 73 H (17-59) U/L ALT 60 H (4-49) U/L Procalcitonin 0.41 H (0.02-0.09) ng/mL
[2021-02-22] MEDS ORDERED: WARFARIN 3 MG TAB PO ONE (18:00)
--- NOTE | 2021-03-03 23:22 | P.DS ---
Providers Date of admission: 02/21/21 14:57 Attending physician: Abraham Silvestre MD Consults: 02/20/21 16:55 Consult Physician Routine Consulting Provider: John Ibrahim Consult Reason/Comments: elevated troponin Do you want consulting provider notified?: Yes Consult Physician Routine Consulting Provider: Mark Ayon Consult Reason/Comments: Gi bleed Do you want consulting provider notified?: Yes Primary care physician: Janice White Hospital Course: Diagnoses: Acute gastroenteritis rather than GI bleed Elevated troponin, Hide Cleaner the don't think it's troponin rise follows CAD pattern, he was cleared for discharge Alcoholic abuse at-risk of alcohol withdrawal Coagulopathy secondary to Coumadin Mild acute kidney injury Mild hypovolemic hyponatremia Chronic A. fib, was on Coumadin at home Hypertension Hyperlipidemia Previous nicotine dependence History of depression, not in activation Hospital course: This is a pleasant 65 years old male with past medical history of hyperl ipidemia, hypertension, alcohol abuse and previous cigarette smoker and depression. He is a patient of Dr. White and he follows up with Dr. Jiang for his A. fib, he has also history of heart attack about 25 years ago. Presents with 2 days history of vomiting about 10 times per day. The patient could not eat or drink. Associated with watery diarrhea. Light brown about 3 times per day. No significant abdominal complaints he has some discomfort in the lower abdomen. His pro-calcitonin came back positive at 0.41, patient evaluated by GI team, patient was started on Augmentin upon discharge however after discharge stool antigen for Giardia came back positive and patient antibiotics was switched to Flagyl and patient informed and he agrees (see addendum) GI team then recommended to continue with Protonix and monitor hemoglobin is currently 14+, no need for endoscopic intervention for now Patients symptoms improved significantly upon discharge, he tolerated diet well, he is able to eat 75-100% of his meals Patient INR on admission was 2.9, came down to 2.3. Patient Coumadin is resumed upon discharge for his A. fib protection, risk and benefits explained to the patient extensively and he agrees with Coumadin. Patient alcoholic abuse but no signs of alcohol withdrawal. CIWA score is 0-1 upon discharge. Patient is asymptomatic. Patient denies chest pain or dyspnea, no abdominal pain, no nausea vomiting, the area stopped. No dysuria. No fever Patient is eager to go home today Problems and management plan were discussed with the patient and he verbalized understanding and acceptance Patient was found stable and can be discharged home however he needs follow-up as an outpatient. Patient was instructed to follow up with PCP Dr. White within one week and patient agrees with the appointments made for him on 02/24, Patient was instructed to follow up with Dr. Jones on 03/01 and he agrees. Also patient was instructed to follow up with GI team doctor lena in 1-2 weeks and he agrees to call and make appointment Physical exam Gen: patient is a AAOx3, no distress CVS: S1-S2, RRR, no murmur Lungs: B/L CTA, no wheezing Abdomen: soft, no distention, no tenderness, positive bowel sounds Extremity: no leg edema or induration Time spent more than 35 minutes Addendum: After patient been discharged Called stating that his antigen for Giardia came back positive. I called the patient Joseph Valentine At [phone] and informed him about his new diagnosis, and he asked me to talk to his Alexa over the phone. I informed them that is a still antigen for Giardia came back positive and I gave him instructions to stop taking the prescription FOR Augmentin provided for him on discharge and instead I sent a prescription for Flagyl 500 mg 3 times a day 5 days, and sent it to the pharmacy [facility] at [place] and I verified the address with the and she agreed Also I instructed them to follow-up with his PCP Dr. White in 2 days on his appointment date 02/24 and discussed with his doctor and they can reduce the stool to ensure clearance of infection and they verbalized understanding and acceptance Patient Condition at Discharge: Fair Plan - Discharge Summary Discharge Rx Participant: No New Discharge Prescriptions: New Amoxic-Pot Clav 875-125Mg [Augmentin 875-125] 1 each PO Q12HR 7 Days #9 tab Pantoprazole Sodium [Protonix] 40 mg PO BID 30 Days #60 tablet. metroNIDAZOLE [Flagyl] 500 mg PO TID 5 Days #15 tab Aspirin 81 mg PO DAILY #90 chewable Continue Simvastatin [Zocor] 80 mg PO DAILY Warfarin [Coumadin] 5 mg PO ONCE@1800 #20 tab Metoprolol Tartrate [Lopressor] 50 mg PO BID #60 tab amLODIPine [Norvasc] 10 mg PO DAILY #30 tab Thiamine [Vitamin B-1] 100 mg PO BID-W/MEALS #30 tab lisinopriL [Zestril] 20 mg PO DAILY tab Citalopram Hydrobromide [CeleXA] 10 mg PO DAILY Discontinued Famotidine [Pepcid] 20 mg PO BID #28 tab Discharge Medication List Simvastatin [Zocor] 80 mg PO DAILY 05/09/19 [History] Metoprolol Tartrate [Lopressor] 50 mg PO BID #60 tab 05/14/19 [Rx] Thiamine [Vitamin B-1] 100 mg PO BID-W/MEALS #30 tab 05/14/19 [Rx] Warfarin [Coumadin] 5 mg PO ONCE@1800 #20 tab 05/14/19 [Rx] amLODIPine [Norvasc] 10 mg PO DAILY #30 tab 05/14/19 [Rx] lisinopriL [Zestril] 20 mg PO DAILY tab 05/14/19 [Rx] Citalopram Hydrobromide [CeleXA] 10 mg PO DAILY 02/20/21 [History] Amoxic-Pot Clav 875-125Mg [Augmentin 875-125] 1 each PO Q12HR 7 Days #9 tab 02/22/21 [Rx] Aspirin 81 mg PO DAILY #90 chewable 02/22/21 [Rx] Pantoprazole Sodium [Protonix] 40 mg PO BID 30 Days #60 tablet. 02/22/21 [Rx] metroNIDAZOLE [Flagyl] 500 mg PO TID 5 Days #15 tab 02/22/21 [Rx] Follow up Appointment(s)/Referral(s): Janice White III, MD [Primary Care Provider] - 02/24/21 4:30 pm Lyric Jones MD [STAFF PHYSICIAN] - 03/01/21 3:00 pm (we recommend stress test or cardiac cath to be assessed with your lathe mechanic. [place] [facility] [place] Mark Ayon MD [STAFF PHYSICIAN] - 2 Weeks (will need EGD/Colonoscopy) Activity/Diet/Wound Care/Special Instructions: Heart healthy diet Activity is restricted till you see your doctor we recommend stress test or cardiac cath to be assessed with your lathe mechanic We are comment keep abstinence from alcohol Discharge Disposition: HOME SELF-CARE
== END 2021-02-22 15:35 | disposition home or self-care (01) ==
LOC: EC 11:52 → 3SCARD 16:59 → OBSVTOIN 02-21 14:57 → INTOOBSV 02-21 14:57 → 5NMEDONC 02-21 15:21 → UNDODISIN 02-22 15:35
PROVIDERS: ADMIT Internal Medicine; ATTEND Internal Medicine
DX: K52.9 Noninfective gastroenteritis and colitis, unspecified (principal); E87.1 Hypo-osmolality and hyponatremia; E87.2 Acidosis; I48.20 Chronic atrial fibrillation, unspecified; N17.9 Acute kidney failure, unspecified; I27.20 Pulmonary hypertension, unspecified; R77.8 Other specified abnormalities of plasma proteins; A07.1 Giardiasis [lambliasis]; F10.10 Alcohol abuse, uncomplicated; E78.5 Hyperlipidemia, unspecified; E86.1 Hypovolemia; Z20.822 Contact with and (suspected) exposure to COVID-19; F32.9 Major depressive disorder, single episode, unspecified; I10 Essential (primary) hypertension; I25.10 Atherosclerotic heart disease of native coronary artery without angina pectoris; R79.1 Abnormal coagulation profile; T45.515A Adverse effect of anticoagulants, initial encounter; Z79.01 Long term (current) use of anticoagulants; Z79.82 Long term (current) use of aspirin; I25.2 Old myocardial infarction; Z79.899 Other long term (current) drug therapy; Z87.891 Personal history of nicotine dependence
CPT/HCPCS: 96376 ×4; 96361; 96372; 96374; 96375; 99284; 36415; 93005; 80061; 80053; 80048 ×2; 80076 ×2; 83605; 83690; 83735 ×2; 84484; 85025 ×3; 85610 ×2; 85730; 82272; 87045; 87329; 87328; 83630; 87046; 84145; 87635; 71045; G0378 ×3; C8929; G0480; J2060 ×2; J2765; J3411; C9113 ×3; Q9950; 80320; 93306

== ENCOUNTER 2021-04-13 10:09 | Inpatient (IN) | payer MEDICARE ==
[2021-04-13 11:50] LABS: Basophils % (A) 1 %; Eosinophils # (A) 0.1 k/uL (0-0.7); Eosinophils % (A) 1 %; HCT 45.6 % (39.0-53.0); HGB 16.2 gm/dL (13.0-17.5); Lymphocytes # (A) 0.3 k/uL (1.0-4.8); Lymphocytes % (A) 3 %; MCH 34.1 pg (25.0-35.0); MCHC 35.5 g/dL (31.0-37.0); MCV 96.2 fL (80.0-100.0); Mean Platelet Volume 8.5; Monocytes # (A) 0.4 k/uL (0-1.0); Monocytes % (A) 5 %; Neutrophils % (A) 90 %; Platelet Count 152 k/uL (150-450); RBC 4.75 m/uL (4.30-5.90); WBC 7.8 k/uL (3.8-10.6)
[2021-04-13 12:00] LABS: Calcium 9.7 mg/dL (8.4-10.2); Total Bilirubin 1.4 mg/dL (0.2-1.3)
[2021-04-13 12:09] LABS: Potassium 4.7 mmol/L (3.5-5.1)
[2021-04-13 12:16] LABS: INR 4.9 (<1.2); Partial Thromboplastin Time 26.1 sec (22.0-30.0); Prothrombin Time 47.4 sec (9.0-12.0)
[2021-04-13 12:18] LABS: Amphetamine Screen,Urine Not Detected (NotDetected); Barbiturate Screen,Urine Not Detected (NotDetected); Benzodiazepines Screen,Urine Not Detected (NotDetected); Cocaine Screen,Urine Not Detected (NotDetected); Methadone Screen, Urine Not Detected (NotDetected); Opiate Screen,Urine Not Detected (NotDetected); Oxycodone Screen, Urine Not Detected (NotDetected); Phencyclidine Screen,Urine Not Detected (NotDetected); Tricyclic Antidepressant,Urine Not Detected (NotDetected); Urn Cannabinoid Scrn Not Detected (NotDetected)
[2021-04-13] MEDS ORDERED: NALOXONE 0.4 MG/ML 1 ML VIAL IV PRN (12:56)
[2021-04-13] MEDS ORDERED: ONDANSETRON 4 MG/2 ML VIAL IVP PRN (12:56)
--- NOTE | 2021-04-13 12:56 | ED ---
General Adult HPI - General Source: patient, family, RN notes reviewed Mode of arrival: ambulatory Limitations: no limitations <Poncho Edwards - Last Filed: 04/13/21 12:53> <Trevor Siegel - Last Filed: 04/13/21 15:30> - General Chief complaint: Psychiatric Symptoms Stated complaint: withdrawals, EPS eval Time Seen by Provider: 04/13/21 10:49 - History of Present Illness Initial comments: 66-year-old male presents emergency department with family for evaluation of psychiatric issues, alcohol abuse, abdominal pain. Patient states his been drinking at least a pint a day and states that this isn't out of control form. Denies being suicidal homicidal. Patient states he stepped against any has been withdrawing including shaking, vomiting, diarrhea. Patient states that he was admitted not long ago for GI bleed. Patient does take Coumadin for atrial fibrillation. (Poncho Edwards) - Related Data Home Medications Medication Instructions Recorded Confirmed Simvastatin [Zocor] 80 mg PO DAILY 05/09/19 04/13/21 Citalopram Hydrobromide [CeleXA] 10 mg PO DAILY 02/20/21 04/13/21 ARIPiprazole [Abilify] 5 mg PO DAILY 04/13/21 04/13/21 Melatonin (Unknown Dose) 1 tab PO HS 04/13/21 04/13/21 Metoprolol Tartrate [Lopressor] 25 mg PO BID 04/13/21 04/13/21 Warfarin [Coumadin] 5 mg PO DAILY@1800 04/13/21 04/13/21 Previous Rx's Medication Instructions Recorded Thiamine [Vitamin B-1] 100 mg PO BID-W/MEALS #30 tab 05/14/19 amLODIPine [Norvasc] 10 mg PO DAILY #30 tab 05/14/19 lisinopriL [Zestril] 20 mg PO DAILY tab 05/14/19 Aspirin 81 mg PO DAILY #90 chewable 02/22/21 Pantoprazole Sodium [Protonix] 40 mg PO BID 30 Days #60 tablet. 02/22/21 Allergies Allergy/AdvReac Type Severity Reaction Status Date / Time No Known Allergies Allergy Verified 04/13/21 12:05 Review of Systems ROS Other: All systems not noted in ROS Statement are negative. <Poncho Edwards - Last Filed: 04/13/21 12:53> ROS Other: All systems not noted in ROS Statement are negative. <Trevor Siegel - Last Filed: 04/13/21 15:30> ROS Statement: Those systems with pertinent positive or pertinent negative responses have been documented in the HPI. Past Medical History Past Medical History: Hyperlipidemia, Hypertension Additional Past Medical History / Comment(s): ETOH abuse History of Any Multi-Drug Resistant Organisms: None Reported Past Surgical History: Joint Replacement Additional Past Surgical History / Comment(s): left hip approximately 25 years ago Past Anesthesia/Blood Transfusion Reactions: No Reported Reaction Past Psychological History: Depression Smoking Status: Former smoker Past Alcohol Use History: Abuse, Daily, Heavy Past Drug Use History: None Reported - Past Family History Father Family Medical History: No Reported History Mother Family Medical History: No Reported History <Poncho Edwards - Last Filed: 04/13/21 12:53> General Exam Limitations: no limitations General appearance: alert, in no apparent distress Head exam: Present: atraumatic, normocephalic, normal inspection ENT exam: Present: normal exam, mucous membranes moist Neck exam: Present: normal inspection. Absent: tenderness, meningismus, lymphadenopathy Respiratory exam: Present: normal lung sounds bilaterally. Absent: respiratory distress, wheezes, rales, rhonchi, stridor Cardiovascular Exam: Present: regular rate, normal rhythm, normal heart sounds. Absent: systolic murmur, diastolic murmur, rubs, gallop, clicks GI/Abdominal exam: Present: soft, tenderness, normal bowel sounds. Absent: distended, guarding, rebound, rigid <Poncho Edwards - Last Filed: 04/13/21 12:53> Course <Trevor Siegel - Last Filed: 04/13/21 15:30> Vital Signs 04/13/21 10:41 Temperature 97.9 F Pulse Rate 81 Respiratory 18 Rate Blood Pressure 144/91 O2 Sat by Pulse 95 Oximetry - Reevaluation(s) Reevaluation #1: 04/13/21 15:30 PA supervision: I did personally evaluate this case patient present with evidence of alcohol abuse. This is a long history. Patient is going to be admitted for medical evaluation (Trevor Siegel) Medical Decision Making - Lab Data Result diagrams: 04/13/21 11:37 04/13/21 11:37 <Poncho Edwards Filed: 04/13/21 12:53> - Lab Data Result diagrams: 04/13/21 11:37 04/13/21 11:37 <Trevor Siegel - Last Filed: 04/13/21 15:30> - Medical Decision Making Patient's labs reveal evidence of acute pancreatitis, alcoholic hepatitis. Patient will be admitted medically with consult to psychiatric for his d epression, alcohol abuse possible rehab. (Poncho Edwards) - Lab Data Lab Results 04/13/21 04/13/21 04/13/21 Range/Units 11:37 11:37 11:37 WBC 7.8 (3.8-10.6) k/uL RBC 4.75 (4.30-5.90) m/uL Hgb 16.2 (13.0-17.5) gm/dL Hct 45.6 (39.0-53.0) % MCV 96.2 (80.0-100.0) fL MCH 34.1 (25.0-35.0) pg MCHC 35.5 (31.0-37.0) g/dL RDW 13.0 (11.5-15.5) % Plt Count 152 (150-450) k/uL MPV 8.5 Neutrophils % 90 % Lymphocytes % 3 % Monocytes % 5 % Eosinophils % 1 % Basophils % 1 % Neutrophils # 7.0 (1.3-7.7) k/uL Lymphocytes # 0.3 L (1.0-4.8) k/uL Monocytes # 0.4 (0-1.0) k/uL Eosinophils # 0.1 (0-0.7) k/uL Basophils # 0.0 (0-0.2) k/uL PT 47.4 H (9.0-12.0) sec INR 4.9 H (<1.2) APTT 26.1 (22.0-30.0) sec Sodium (137-145) mmol/L Potassium (3.5-5.1) mmol/L Chloride (98-107) mmol/L Carbon Dioxide (22-30) mmol/L Anion Gap mmol/L BUN (9-20) mg/dL Creatinine (0.66-1.25) mg/dL Est GFR (CKD-EPI)AfAm (>60 ml/min/1.73 sqM) Est GFR (CKD-EPI)NonAf (>60 ml/min/1.73 sqM) Glucose (74-99) mg/dL Calcium (8.4-10.2) mg/dL Total Bilirubin (0.2-1.3) mg/dL AST (17-59) U/L ALT (4-49) U/L Alkaline Phosphatase (38-126) U/L Total Protein (6.3-8.2) g/dL Albumin (3.5-5.0) g/dL Lipase (23-300) U/L Urine Color Yellow Urine Appearance Cloudy (Clear) Urine pH 6.0 (5.0-8.0) Ur Specific [place] 1.026 (1.001-1.035) Urine Protein 2+ H (Negative) Urine Glucose (UA) Negative (Negative) Urine Ketones 1+ H (Negative) Urine Blood Moderate H (Negative) Urine Nitrite Negative (Negative) Urine Bilirubin 1+ H (Negative) Urine Urobilinogen 3.0 (<2.0) mg/dL Ur Leukocyte Esterase Negative (Negative) Urine RBC 1 (0-5) /hpf Urine WBC 8 H (0-5) /hpf Ur Squamous Epith Cells 1 (0-4) /hpf Amorphous Sediment Rare H (None) /hpf Urine Bacteria Rare H (None) /hpf Hyaline Casts 1 (0-2) /lpf Granular Casts 4 (0) /lpf Urine Mucus Moderate H (None) /hpf Urine Opiates Screen Not Detected (NotDetected) Ur Oxycodone Screen Not Detected (NotDetected) Urine Methadone Screen Not Detected (NotDetected) Ur Propoxyphene Screen Not Detected (NotDetected) Ur Barbiturates Screen Not Detected (NotDetected) U Tricyclic Antidepress Not Detected (NotDetected) Ur Phencyclidine Scrn Not Detected (NotDetected) Ur Amphetamines Screen Not Detected (NotDetected) U Methamphetamines Scrn Not Detected (NotDetected) U Benzodiazepines Scrn Not Detected (NotDetected) Urine Cocaine Screen Not Detected (NotDetected) U Marijuana (THC) Screen Not Detected (NotDetected) Coronavirus (PCR) (Not Detectd) 04/13/21 04/13/21 Range/Units 11:37 13:36 WBC (3.8-10.6) k/uL RBC (4.30-5.90) m/uL Hgb (13.0-17.5) gm/dL Hct (39.0-53.0) % MCV (80.0-100.0) fL MCH (25.0-35.0) pg MCHC (31.0-37.0) g/dL RDW (11.5-15.5) % Plt Count (150-450) k/uL MPV Neutrophils % % Lymphocytes % % Monocytes % % Eosinophils % % Basophils % % Neutrophils # (1.3-7.7) k/uL Lymphocytes # (1.0-4.8) k/uL Monocytes # (0-1.0) k/uL Eosinophils # (0-0.7) k/uL Basophils # (0-0.2) k/uL PT (9.0-12.0) sec INR (<1.2) APTT (22.0-30.0) sec Sodium 132 L (137-145) mmol/L Potassium 4.7 (3.5-5.1) mmol/L Chloride 97 L (98-107) mmol/L Carbon Dioxide 21 L (22-30) mmol/L Anion Gap 14 mmol/L BUN 43 H (9-20) mg/dL Creatinine 1.20 (0.66-1.25) mg/dL Est GFR (CKD-EPI)AfAm 72 (>60 ml/min/1.73 sqM) Est GFR (CKD-EPI)NonAf 62 (>60 ml/min/1.73 sqM) Glucose 139 H (74-99) mg/dL Calcium 9.7 (8.4-10.2) mg/dL Total Bilirubin 1.4 H (0.2-1.3) mg/dL AST 187 H (17-59) U/L ALT 136 H (4-49) U/L Alkaline Phosphatase 68 (38-126) U/L Total Protein 8.0 (6.3-8.2) g/dL Albumin 5.0 (3.5-5.0) g/dL Lipase 1223 H (23-300) U/L Urine Color Urine Appearance (Clear) Urine pH (5.0-8.0) Ur Specific [place] (1.001-1.035) Urine Protein (Negative) Urine Glucose (UA) (Negative) Urine Ketones (Negative) Urine Blood (Negative) Urine Nitrite (Negative) Urine Bilirubin (Negative) Urine Urobilinogen (<2.0) mg/dL Ur Leukocyte Esterase (Negative) Urine RBC (0-5) /hpf Urine WBC (0-5) /hpf Ur Squamous Epith Cells (0-4) /hpf Amorphous Sediment (None) /hpf Urine Bacteria (None) /hpf Hyaline Casts (0-2) /lpf Granular Casts (0) /lpf Urine Mucus (None) /hpf Urine Opiates Screen (NotDetected) Ur Oxycodone Screen (NotDetected) Urine Methadone Screen (NotDetected) Ur Propoxyphene Screen (NotDetected) Ur Barbiturates Screen (NotDetected) U Tricyclic Antidepress (NotDetected) Ur Phencyclidine Scrn (NotDetected) Ur Amphetamines Screen (NotDetected) U Methamphetamines Scrn (NotDetected) U Benzodiazepines Scrn (NotDetected) Urine Cocaine Screen (NotDetected) U Marijuana (THC) Screen (NotDetected) Coronavirus (PCR) Not Detected (Not Detectd) Disposition <Poncho Edwards - Last Filed: 04/13/21 12:53> <Trevor Siegel - Last Filed: 04/13/21 15:30> Clinical Impression: Depression, Alcohol withdrawal, Alcohol abuse, Acute pancreatitis Disposition: ADMITTED IP TO THIS [facility] Condition: Fair Referrals: Janice White III, MD [Primary Care Provider] - 1-2 days
[2021-04-13] MEDS ORDERED: LORazepam 2 MG/ML INJ IV PRN (12:58)
[2021-04-13] MEDS ORDERED: SODIUM CHLORIDE 0.9% 1,000 ML IV ONE (12:58)
[2021-04-13] MEDS: LORazepam 2 MG/ML INJ IV PRN ×3 (13:29→21:05)
[2021-04-13] MEDS: SODIUM CHLORIDE 0.9% 1,000 ML IV SCH (13:29)
[2021-04-13 13:32] LABS: Amorphous Sediment,Urine Rare /hpf; Appearance,Urine Cloudy (Clear); Bacteria,Urine Rare /hpf; Bilirubin,Urine 1+ (Negative); Blood,Urine Moderate (Negative); Color,Urine Yellow; Glucose,Urine (UA) Negative (Negative); Granular Casts,Urine 4 /lpf (0); Hyaline Casts,Urine 1 /lpf (0-2); Ketones,Urine 1+ (Negative); Leukocyte Esterase,Urine Negative (Negative); Mucus,Urine Moderate /hpf; Nitrite,Urine Negative (Negative); Protein,Urine 2+ (Negative); RBC,Urine 1 /hpf (0-5); Specific Gravity,Urine 1.026 (1.001-1.035); Squamous Epithelial Cell,Urine 1 /hpf (0-4); WBC,Urine 8 /hpf (0-5)
[2021-04-13] MEDS ORDERED: TEMAZEPAM 15 MG CAP PO PRN (18:29)
[2021-04-13] MEDS ORDERED: HYDROcodone/APAP 5-325MG 1 EACH TAB PO PRN (18:29)
--- NOTE | 2021-04-13 20:44 | XR ---
EXAMINATION TYPE: XR chest 1V portable DATE OF EXAM: 04/13/2021 COMPARISON: 02/20/2021 INDICATION: CHF TECHNIQUE: Single frontal view of the chest is obtained. FINDINGS: The heart size is normal. The pulmonary vasculature is normal. May be some minimal scarring at the left base. Atelectasis could be considered. Lungs are otherwise c lear. IMPRESSION: 1. Minimal scarring versus atelectasis at the left base.
[2021-04-13] MEDS ORDERED: MELATONIN PO SCH (21:00)
--- NOTE | 2021-04-13 21:02 | HP ---
HISTORY AND PHYSICAL DATE OF SERVICE: 04/13/2021 CHIEF COMPLAINTS: Alcohol withdrawal symptoms. HISTORY OF PRESENT ILLNESS: This 66-year-old gentleman with a past history of hypertension, hyperlipidemia, history EtOH abuse, being followed by Dr. White in the patient is complaining of alcohol withdrawal symptoms. Patient apparently was drinking alcohol heavily. Patient was also complaining of some abdominal pain. The patient also had some difficulty in walking and some tremors also noted. Patient is not suicidal or homicidal and patient admitted to the hospital for further evaluation and treatment. Initial evaluation showed Coumadin coagulopathy, hyponatremia and evidence of alcoholic hepatitis. There is no history of any fever, rigors or chills at this time. PAST MEDICAL HISTORY: History of hypertension, hyperlipidemia, history of depression, history of alcohol abuse, previous history of smoking. MEDICATIONS ARE: Coumadin, melatonin, Abilify. Zestril, Norvasc, vitamin B1, Zocor, Protonix. Lopressor, Celexa, aspirin. ALLERGIES: None. FAMILY HISTORY: No history of heart disease or strokes in the family. SOCIAL HISTORY: No history of smoking. Occasional alcohol intake. REVIEW OF SYSTEMS: ENT No history of diminished hearing or vision. CARDIOVASCULAR As mentioned earlier. RESPIRATORY As mentioned earlier. GI No nausea, vomiting, or diarrhea. No dysuria or hematuria. NERVOUS No numbness or weakness. ALLERGY/IMMUNOLOGY No asthma or hayfever. MUSCULOSKELETAL As mentioned earlier. HEMATOLOGY/ONCOLOGY Negative. ENDOCRINE No history of diabetes or hypothyroidism. CONSTITUTIONAL As mentioned earlier. DERMATOLOGY Negative. RHEUMATOLOGY Negative, PSYCHIATRY As mentioned earlier. PHYSICAL EXAMINATION: Alert and oriented x3. Pulse is 81, blood pressure 141/90, respiration 18, temperature 97.9, pulse ox 94% on room air. HEENT: Conjunctivae normal. Oral mucosa moist. NECK: No jugular venous distention. No lymph node enlargement. CARDIOVASCULAR: S1, S2, muffled. No S3, no S4, RESPIRATORY: Diminished breath sounds at the bases. A few scattered rhonchi. ABDOMEN: Soft, nontender. LEGS: No edema, no swelling. NERVOUS SYSTEM: Higher functions mentioned earlier. Moves all four limbs. Mild diffuse tremors. LYMPHATICS: No lymph node in neck or axilla. SKIN: No rash. JOINTS: No active deforming arthropathy. LABS: CBC within normal limits. INR 4.9. Sodium 132. ASSESSMENT: 1. Acute alcohol withdrawal and acute delirium tremens. 2. Coumadin coagulopathy. 3. Hyponatremia. 4. Acute alcoholic hepatitis with increased bilirubin, AST, ALT. 5. Elevated lipase, possible mild acute pancreatitis, present on admission. 6. Rule out urinary tract infection. 7. Hypertension. 8. Hyperlipidemia. 9. History EtOH abuse. 10.History of depression. 11.History of nicotine dependence. 12.FULL CODE. RECOMMENDATIONS: In this 66-year-old gentleman who presented with multiple medical problems, we will monitor the patient closely. We will initiate CIWA protocol. Otherwise, supplement vitamins, neuro checks, closely monitor. Psychiatric evaluation has been sought for depression. Prognosis guarded because of multiple complex medical issues. Alcohol rehab is recommended. Prognosis guarded. We will resume the home medications after being confirmed. Prognosis guarded. Further recommendations to follow. MMFARAL / JESUSN: [id number] /
[2021-04-13] MEDS: THIAMINE 100 MG TAB PO SCH (21:04)
[2021-04-13] MEDS: METOPROLOL TARTRATE 25 MG TAB PO SCH (21:04)
[2021-04-13] MEDS: PANTOPRAZOLE 40 MG TABLET PO SCH (21:05)
[2021-04-14] MEDS: LORazepam 2 MG/ML INJ IV PRN ×12 (00:45→22:46)
[2021-04-14] MEDS: SODIUM CHLORIDE 0.9% 1,000 ML IV SCH ×3 (03:38→17:09)
[2021-04-14] MEDS: PANTOPRAZOLE 40 MG TABLET PO SCH ×2 (08:20→17:09)
[2021-04-14] MEDS: lisinopriL 20 MG TAB PO SCH (08:20)
[2021-04-14] MEDS: ATORVASTATIN 40 MG TAB PO SCH (08:20)
[2021-04-14] MEDS: METOPROLOL TARTRATE 25 MG TAB PO SCH ×2 (08:20→19:48)
[2021-04-14] MEDS: THIAMINE 100 MG TAB PO SCH ×2 (08:20→17:09)
[2021-04-14] MEDS: amLODIPine 10 MG TAB PO SCH (08:20)
[2021-04-14] MEDS: CITALOPRAM HYDROBROMIDE 10 MG TAB PO SCH (08:21)
[2021-04-14] MEDS: ARIPiprazole 5 MG TAB PO SCH (08:21)
[2021-04-14 09:24] LABS: Basophils % (A) 0 %; Eosinophils # (A) 0.1 k/uL (0-0.7); Eosinophils % (A) 1 %; HCT 43.5 % (39.0-53.0); HGB 14.6 gm/dL (13.0-17.5); Lymphocytes # (A) 0.4 k/uL (1.0-4.8); Lymphocytes % (A) 8 %; MCHC 33.7 g/dL (31.0-37.0); MCV 97.9 fL (80.0-100.0); Mean Platelet Volume 8.8; Monocytes # (A) 0.4 k/uL (0-1.0); Monocytes % (A) 7 %; Neutrophils # (A) 4.3 k/uL (1.3-7.7); Neutrophils % (A) 83 %; Platelet Count 124 k/uL (150-450); RBC 4.44 m/uL (4.30-5.90); RDW 13.1 % (11.5-15.5); WBC 5.2 k/uL (3.8-10.6)
[2021-04-14 09:45] LABS: Prothrombin Time 29.1 sec (9.0-12.0)
[2021-04-14 11:08] LABS: ALT 89 U/L (4-49); AST 112 U/L (17-59); African American GFR (CKD) 89 (>60 ml/min/1.73 sqM); Albumin/Globulin Ratio 1.6; Alkaline Phosphatase 69 U/L (38-126); Anion Gap 10 mmol/L; Blood Urea Nitrogen 30 mg/dL (9-20); Calcium 9.2 mg/dL (8.4-10.2); Carbon Dioxide 22 mmol/L (22-30); Chloride 104 mmol/L (98-107); Globulin 2.5 g/dL; Glucose 89 mg/dL (74-99); Non-African American GFR(CKD) 77 (>60 ml/min/1.73 sqM); Potassium 4.2 mmol/L (3.5-5.1); Sodium 136 mmol/L (137-145); Total Bilirubin 1.1 mg/dL (0.2-1.3); Total Protein 6.5 g/dL (6.3-8.2)
[2021-04-14 13:08] LABS: Glucose,Whole Blood 105 mg/dL (75-99)
--- NOTE | 2021-04-14 13:39 | P.CN ---
Psychiatric Consult - . Consult date: 04/14/21 Consult:: IDENTIFYING DATA: This patient is a Retired, , 66-year-old male who was admitted for alcohol intoxication and psychiatric evaluation. HISTORY OF PRESENT ILLNESS: The patient presented to the hospital on 04/13/2021 ambulatory and accompanied by family. He was reportedly brought in for alcohol detoxification and psychiatric evaluation. The patient was admitted for management of acute alcohol withdrawal. Patient was seen at bedside. He reports he was drinking at least 5-6 beers and 1 pint of vodka daily. He reports he has been drinking this heavily since he was in his 40s. He reports his decided to take him to the emergency department after discovering that he was hiding beer and liquor in the home. CIWA score of 9 as of this am. The patient is a limited historian at this time. He has previously been admitted to the psychiatric unit in April 2019 for 2 days for evaluation and his home medications include celexa and abilify. He is unable to recall if he has been treated for mental health in the past. In regards to mood symptoms, the patient denies any suicidal or homicidal ideation, intention, and/or plan. He does report difficulty sleeping and poor appetite but otherwise denies any anhedonia, hopelessness or helplessness. He reports no significant history of bipolar disorder. He denies any manic episodes and does not report any increased goal directed behavior, excessive energy, or grandiosity. He denies any history of auditory or visual hallucinations. He denies any paranoia or other delusions. PAST PSYCHIATRIC HISTORY: Patient has a history of alcohol use disorder and depression. As per chart review, he has previously been prescribed librium, ambien and buspar. He is currently on a regimen of celexa and abilify. Patient has had at least 1 inpatient admission in April of 2019 on [facility]. Patient denies any psychiatric outpatient follow-up. Patient denies any history of suicide attempts in the past. PAST MEDICAL HISTORY: Past Medical History: Hyperlipidemia, Hypertension Additional Past Medical History / Comment(s): ETOH abuse History of Any Multi-Drug Resistant Organisms: None Reported Past Surgical History: Joint Replacement Additional Past Surgical History / Comment(s): left hip approximately 25 years ago Past Anesthesia/Blood Transfusion Reactions: No Reported Reaction Past Psychological History: Depression Smoking Status: Former smoker Past Alcohol Use History: Abuse, Daily, Heavy Past Drug Use History: None Reported ALLERGIES: as per EMR. CHEMICAL DEPENDENCY HISTORY: Patient denies any tobacco, marijuana, or illicit drug use. He reports never having undergone treatment for Alcohol Use Disorder. He denies any previous rehab admissions. He reports no prior medications. FAMILY PSYCHIATRIC/SUBSTANCE USE HISTORY: Patient reports his father was an alcoholic. He otherwise denies any family history of mental illness or substance abuse problems. SOCIAL HISTORY: Patient states he was 1 of 11 siblings. 2 of his siblings are . He reports both parents are . He reports graduating high school. He has 3 adult children who live in [facility], and [place]. He reports he has been to his Alexa for 46 years. He reports no abuse history. MENTAL STATUS EXAM: General Appearance: Patient appears to be stated age is alert, pleasant, and cooperative. Patient appears to have poor hygiene and grooming wearing hospital gown with fair eye contact. Behavior: Patient is lying in bed but appears to be restless with elevated psychomotor activity. Speech: Patient's speech is fluent and nonpressured. Mood/Affect: Patient reports their mood is "a little depressed", affect is incongruent. He appears to be euthymic to bright. Suicidality/Homicidality: Patient denies having any suicidal or homicidal ideation intent or plan. Perceptions: Patient denies any visual hallucinations [and denies any auditory hallucinations Though content/process: There is no evidence of any delusional thought content and thought process is linear and goal-directed. Memory and concentration: AOX3, grossly intact for the purposes of this session. Can spell "WORLD" backwards Judgment and insight: Poor Vital Signs Temp 97.8 F 04/14/21 13:19 Pulse 83 04/14/21 13:19 Resp 18 04/14/21 13:19 BP 130/82 04/14/21 13:19 Pulse Ox 96 04/14/21 13:19 Intake & Output 04/13/21 04/14/21 04/14/21 18:59 06:59 18:59 Weight 90.718 kg Other: # Voids 1 Laboratory Results - Last 24 Hours 04/13/21 04/14/21 04/14/21 13:36 08:53 08:53 WBC RBC Hgb Hct MCV MCH MCHC RDW Plt Count MPV Neutrophils % Lymphocytes % Monocytes % Eosinophils % Basophils % Neutrophils # Lymphocytes # Monocytes # Eosinophils # Basophils # PT 29.1 H INR 3.0 H Sodium 136 L Potassium 4.2 Chloride 104 Carbon Dioxide 22 Anion Gap 10 BUN 30 H Creatinine 1.00 Est GFR (CKD-EPI)AfAm 89 Est GFR (CKD-EPI)NonAf 77 Glucose 89 POC Glucose (mg/dL) POC Glu Fleshing Machine Operator ID Calcium 9.2 Total Bilirubin 1.1 AST 112 H ALT 89 H Alkaline Phosphatase 69 Total Protein 6.5 Albumin 4.0 Globulin 2.5 Albumin/Globulin Ratio 1.6 Lipase Coronavirus (PCR) Not Detected 04/14/21 04/14/21 04/14/21 08:53 08:53 13:06 WBC 5.2 RBC 4.44 Hgb 14.6 Hct 43.5 MCV 97.9 MCH 33.0 MCHC 33.7 RDW 13.1 Plt Count 124 L MPV 8.8 Neutrophils % 83 Lymphocytes % 8 Monocytes % 7 Eosinophils % 1 Basophils % 0 Neutrophils # 4.3 Lymphocytes # 0.4 L Monocytes # 0.4 Eosinophils # 0.1 Basophils # 0.0 PT INR Sodium Potassium Chloride Carbon Dioxide Anion Gap BUN Creatinine Est GFR (CKD-EPI)AfAm Est GFR (CKD-EPI)NonAf Glucose POC Glucose (mg/dL) 105 H POC Glu Fleshing Machine Operator ID Celia Escudero Calcium Total Bilirubin AST ALT Alkaline Phosphatase Total Protein Albumin Globulin Albumin/Globulin Ratio Lipase 1029 H Coronavirus (PCR) IMPRESSIONS: Alcohol Use Disorder Acute Alcohol withdrawal PLAN: -At this time patient DOES NOT meet criteria for inpatient psychiatric admission. Primary concern is acute alcohol withdrawal. He is not presenting with immediate risk of harm to self or others. This provider attempted to contact his on the number listed but it comes back as disconnected. -Would recommend the following medication changes/additions: Continue celexa 10 mg daily for depression/anxiety Continue abilify 5 mg for mood augmentation Start Librium 25 mg TID For alcohol withdrawal. CIWA score of 9. Start Naltrexone 50 mg DAILY for alcohol use disorder. -Will continue to follow along 04/14/21 13:19
[2021-04-14] MEDS: chlordiazePOXIDE 25 MG CAP PO SCH ×2 (15:18→19:48)
--- NOTE | 2021-04-14 20:36 | PN ---
PROGRESS NOTE DATE OF SERVICE: 04/14/2021 This 66-year-old gentleman admitted with significant alcohol withdrawal and delirium tremens, being closely monitored. The patient is jittery and confused. No chest pain. No palpitations. No fever. PHYSICAL EXAMINATION: Alert and oriented x1. Pulse 83, blood pressure 130/82, respiration 18, temperature 97.8. Pulse ox 98% on room air. HEENT: Conjunctivae normal. NECK: No JVD. CARDIOVASCULAR: S1, S2 muffled. RESPIRATION: Breath sounds diminished in the bases. A few scattered rhonchi. ABDOMEN: Soft. Nontender. NERVOUS SYSTEM: No focal deficits. LABS: Platelets 124. Sodium 136. Other labs are noted. UA noted. ASSESSMENT: 1. Acute alcohol withdrawal and acute delirium tremens. 2. Coumadin coagulopathy. 3. Thrombocytopenia mild. 4. Hyponatremia. 5. Acute alcoholic hepatitis with increased bilirubin, AST/ALT. 6. Elevated lipase possible mild acute pancreatitis, present on admission. 7. Possible acute urinary tract infection present on admission. 8. Hypertension. 9. Hyperlipidemia. 10.History of EtOH abuse. 11.History of depression. 12.History of nicotine dependence. 13.FULL CODE. RECOMMENDATIONS AND DISCUSSION: Continue current medication, continue to monitor. Symptomatic treatment. Otherwise, I would recommend repeat UA and continue to monitor. Continue rest of medications. CIWA protocol. Prognosis guarded. Further recommendations to follow. Psychiatry input appreciated. MECHELLE / JESSIKA: [id number] /
[2021-04-14 23:16] LABS: ALT 76 U/L (4-49); AST 93 U/L (17-59); African American GFR (CKD) 84 (>60 ml/min/1.73 sqM); Albumin/Globulin Ratio 1.5; Alkaline Phosphatase 67 U/L (38-126); Amylase 66 U/L (30-110); Anion Gap 12 mmol/L; Blood Urea Nitrogen 27 mg/dL (9-20); Calcium 9.1 mg/dL (8.4-10.2); Carbon Dioxide 21 mmol/L (22-30); Chloride 102 mmol/L (98-107); Globulin 2.6 g/dL; Glucose 79 mg/dL (74-99); Lipase 1033 U/L (23-300); Non-African American GFR(CKD) 73 (>60 ml/min/1.73 sqM); Potassium 4.1 mmol/L (3.5-5.1); Sodium 135 mmol/L (137-145); Total Bilirubin 1.2 mg/dL (0.2-1.3); Total Protein 6.6 g/dL (6.3-8.2)
[2021-04-15] MEDS: SODIUM CHLORIDE 0.9% 1,000 ML IV SCH ×2 (06:57→17:06)
[2021-04-15] MEDS: NALTREXONE HCL 50 MG TAB PO SCH (08:58)
[2021-04-15] MEDS: ATORVASTATIN 40 MG TAB PO SCH (08:58)
[2021-04-15] MEDS: METOPROLOL TARTRATE 25 MG TAB PO SCH ×2 (08:58→20:40)
[2021-04-15] MEDS: amLODIPine 10 MG TAB PO SCH (08:58)
[2021-04-15] MEDS: PANTOPRAZOLE 40 MG TABLET PO SCH ×2 (08:58→16:59)
[2021-04-15] MEDS: THIAMINE 100 MG TAB PO SCH ×2 (08:58→16:59)
[2021-04-15] MEDS: lisinopriL 20 MG TAB PO SCH (08:58)
[2021-04-15] MEDS: chlordiazePOXIDE 25 MG CAP PO SCH ×2 (08:58→20:40)
[2021-04-15] MEDS: ARIPiprazole 5 MG TAB PO SCH (08:59)
[2021-04-15] MEDS: CITALOPRAM HYDROBROMIDE 10 MG TAB PO SCH (08:59)
[2021-04-15 09:29] LABS: Basophils # (A) 0.04 X 10*3/uL (0.00-0.10); Basophils % (A) 0.8 %; Eosinophils # (A) 0.09 X 10*3/uL (0.04-0.35); Eosinophils % (A) 1.7 %; HCT 41.3 % (39.6-50.0); HGB 13.7 g/dL (13.0-17.0); Lymphocytes # (A) 0.79 X 10*3/uL (0.90-5.00); Lymphocytes % (A) 15.1 %; MCH 32.8 pg (27.0-32.0); MCHC 33.2 g/dL (32.0-37.0); MCV 98.8 fL (80.0-97.0); Monocytes # (A) 0.45 X 10*3/uL (0.20-1.00); Monocytes % (A) 8.6 %; Neutrophils % (A) 72.8 %; Platelet Count 120 X 10*3/uL (140-440); RBC 4.18 X 10*6/uL (4.40-5.60); RDW 13.3 % (11.5-14.5); WBC 5.22 X 10*3/uL (4.50-10.00)
[2021-04-15] MEDS: BENZOCAINE/MENTHOL LOZENG 1 EACH LOZENGE MUCOUS MEM PRN ×2 (09:49→16:59)
--- NOTE | 2021-04-15 13:49 | P.PN ---
Progress Note - Text Progress Note Date: 04/15/21 Subjective: Patient was seen sitting upright in his bed about to eat his lunch. The patient is currently not reporting any suicidal or homicidal ideation, intention, and/or plan. He is not reporting any auditory or visual hallucinations. He denies any paranoia or other delusions. The patient reports that his withdrawal symptoms have significantly improved. He is currently alert and oriented in all spheres. The patient expresses a strong desire to quit alcohol and states that he is willing to go to rehabilitation. He reports no issues with sleep but continues to report some difficulty with appetite. The patient expresses his biggest concern at this time is the weakness in his legs. Objective: Vital Signs Temp 98.1 F 04/15/21 08:00 Pulse 71 04/15/21 08:00 Resp 18 04/15/21 08:00 BP 142/90 04/15/21 08:00 Pulse Ox 95 04/15/21 08:00 Intake & Output 04/14/21 04/15/21 04/15/21 18:59 06:59 18:59 Output Total 400 Balance -400 Output: Urine 400 Other: # Voids 1 Laboratory Results - Last 24 Hours 04/14/21 04/15/21 21:45 06:05 WBC 5.22 RBC 4.18 L Hgb 13.7 Hct 41.3 MCV 98.8 H MCH 32.8 H MCHC 33.2 RDW 13.3 Plt Count 120 L MPV 12.0 Immature Gran % (Auto) 1.0 Absolute Nucleated RBC 0 Neutrophils % 72.8 Lymphocytes % 15.1 Monocytes % 8.6 Eosinophils % 1.7 Basophils % 0.8 Immature Gran # 0.05 H Neutrophils # 3.80 Lymphocytes # 0.79 L Monocytes # 0.45 Eosinophils # 0.09 Basophils # 0.04 NRBC/100 WBC Diff 0 Sodium 135 L Potassium 4.1 Chloride 102 Carbon Dioxide 21 L Anion Gap 12 BUN 27 H Creatinine 1.05 Est GFR (CKD-EPI)AfAm 84 Est GFR (CKD-EPI)NonAf 73 Glucose 79 Calcium 9.1 Total Bilirubin 1.2 AST 93 H ALT 76 H Alkaline Phosphatase 67 Total Protein 6.6 Albumin 4.0 Globulin 2.6 Albumin/Globulin Ratio 1.5 Amylase 66 Lipase 1033 H Mental Status Exam: General Appearance: Patient appears to be stated age is alert, directable, and cooperative. Behavior: Patient is calmly sitting in his chair without any agitated behavior. Psychomotor activity is normal. Eye contact is appropriate. Speech: Patient's speech is spontaneous, mildly dysarthric, but otherwise normal tone. Mood/Affect: Mood is "feeling better." Affect is constricted but otherwise euthymic. Suicidality/Homicidality: Patient denies having any suicidal or homicidal ideation intent or plan. Perceptions: Patient denies any visual hallucinations and denies any auditory hallucinations Though content/process: There is no evidence of any delusional thought content. Thought process appears linear and logical in short conversation. Memory and concentration: AOX3 , concentration is fair. Judgment and insight: Fair Assessment Alcohol Use Disorder Acute Alcohol withdrawal Plan: -Addressed and ensured patient's safety, patient has not report of been actively suicidal, or any active plan or intent of suicide. -Patient does not meet the criteria for psychiatric hospitalization. -Medication adjustments: Continue Celexa 10 mg by mouth daily for depression/anxiety Continue Abilify 5 mg by mouth daily for mood augmentation We'll begin to taper the patient's Librium. Decrease to 25 mg by mouth twice a day for 1 day, decrease to 25 mg daily the following day. CIWA score of 4 today. Continue Naltrexone 50 mg by mouth daily for alcohol use disorder -Delirium precautions recommended with the patient including: Avoid use of narcotics and ENGINEERING DESIGN SUPERVISOR sedatives, limit anticholinergic medications when possible, frequent reorientation, minimize use of restraints, open window shades during the day and close them at night. -Recommend social work consult to provide patient with resources for substance abuse rehab. -Psychiatry will sign off at this time. Thank you for letting us participate in this patient's care. Please call us or reconsult us if necessary.
--- NOTE | 2021-04-15 16:50 | PN ---
PROGRESS NOTE DATE OF SERVICE: 04/15/2021 This 66-year-old gentleman was admitted with acute alcohol intoxication, also had Coumadin coagulopathy. The patient is being closely monitored. No chest pain. No palpitations. No fever. The patient has had features of DTs. PHYSICAL EXAMINATION: Alert and oriented x3. Pulse is 71. Blood pressure 140/90, respiration 18, temperature 98.0, pulse ox 94% on room air. HEENT: Conjunctivae normal. Oral mucosa moist. NECK: No jugular venous distention. No lymph node enlargement. CARDIOVASCULAR: S1, S2, muffled. No S3, no S4, RESPIRATORY: Diminished breath sounds at the bases. A few scattered rhonchi. ABDOMEN: Soft, nontender. NERVOUS SYSTEM: Diffusely weak and tremors. LAB: WBC 5, hemoglobin 13.7 sodium 137, lipase 10 33. ASSESSMENT: 1. Acute alcohol withdrawal and acute delirium tremens. 2. Coumadin coagulopathy. 3. Mild pancreatitis. 4. Thrombocytopenia, mild. 5. Hyponatremia. 6. Acute alcoholic hepatitis with increased bilirubin, AST, ALT. 7. Acute urinary tract infection, present on admission. 8. Hypertension. 9. Hyperlipidemia. 10.History of ETOH abuse. 11.History of depression. 12.History of nicotine dependence. 13.FULL CODE. RECOMMENDATIONS: Recommend to continue current management, continue symptomatic treatment, continue with CIWA protocol. Otherwise, cultures are negative at this time. Continue the vitamin supplements. Increase ambulation. PT, OT evaluation. Guarded prognosis. Further recommendations to follow. MMODL / IJN: [id number] /
[2021-04-15] MEDS: LORazepam 2 MG/ML INJ IV PRN (21:30)
[2021-04-16] MEDS: SODIUM CHLORIDE 0.9% 1,000 ML IV SCH ×2 (02:29→15:52)
[2021-04-16] MEDS: ARIPiprazole 5 MG TAB PO SCH (08:28)
[2021-04-16] MEDS: BENZOCAINE/MENTHOL LOZENG 1 EACH LOZENGE MUCOUS MEM PRN (08:28)
[2021-04-16] MEDS: METOPROLOL TARTRATE 25 MG TAB PO SCH (08:29)
[2021-04-16] MEDS: chlordiazePOXIDE 25 MG CAP PO SCH (08:29)
[2021-04-16] MEDS: ATORVASTATIN 40 MG TAB PO SCH (08:29)
[2021-04-16] MEDS: CITALOPRAM HYDROBROMIDE 10 MG TAB PO SCH (08:29)
[2021-04-16] MEDS: NALTREXONE HCL 50 MG TAB PO SCH (08:29)
[2021-04-16] MEDS: PANTOPRAZOLE 40 MG TABLET PO SCH (08:29)
[2021-04-16] MEDS: lisinopriL 20 MG TAB PO SCH (08:29)
[2021-04-16] MEDS: THIAMINE 100 MG TAB PO SCH (08:29)
[2021-04-16] MEDS: amLODIPine 10 MG TAB PO SCH (08:30)
[2021-04-16] MEDS ORDERED: FOLIC ACID 1 MG TAB PO SCH (12:00)
[2021-04-16] MEDS ORDERED: MULTIVITAMINS, THERA 1 EACH TAB PO SCH (12:00)
[2021-04-16 13:51] LABS: Basophils # (A) 0.03 X 10*3/uL (0.00-0.10); Basophils % (A) 0.6 %; Eosinophils # (A) 0.09 X 10*3/uL (0.04-0.35); Eosinophils % (A) 1.9 %; HCT 39.6 % (39.6-50.0); HGB 13.5 g/dL (13.0-17.0); Lymphocytes # (A) 0.57 X 10*3/uL (0.90-5.00); Lymphocytes % (A) 11.9 %; MCH 33.3 pg (27.0-32.0); MCHC 34.1 g/dL (32.0-37.0); MCV 97.5 fL (80.0-97.0); Mean Platelet Volume 12.1 fL (9.5-12.2); Monocytes # (A) 0.44 X 10*3/uL (0.20-1.00); Monocytes % (A) 9.1 %; Neutrophils # (A) 3.64 X 10*3/uL (1.80-7.70); Neutrophils % (A) 75.7 %; Platelet Count 132 X 10*3/uL (140-440); RBC 4.06 X 10*6/uL (4.40-5.60); RDW 13.2 % (11.5-14.5); WBC 4.81 X 10*3/uL (4.50-10.00)
[2021-04-16 15:23] VITALS: BP 143/88; PULSE 70; RESP 18; TEMP 97.7
[2021-04-16 18:40] LABS: African American GFR (CKD) 101.4 (60.0-200.0); Albumin 3.8 g/dL (3.80-4.90); Albumin/Globulin Ratio 1.81 (1.60-3.17); Anion Gap 12.5 mmol/L (4.00-12.00); BUN/Creat Ratio 22.22 Ratio (12.00-20.00); Calcium 9.3 mg/dL (8.7-10.3); Carbon Dioxide 20.5 mmol/L (21.6-31.8); Globulin 2.1 g/dL (1.6-3.3); Non-African American GFR(CKD) 87.5 (60.0-200.0); Potassium 4.2 mmol/L (3.5-5.5); Total Bilirubin 1.1 mg/dL (0.2-1.2); Total Protein 5.9 g/dL (6.2-8.2)
--- NOTE | 2021-04-17 07:04 | DS ---
DISCHARGE SUMMARY DATE OF SERVICE: 04/16/2021 FINAL DIAGNOSIS: 1. Acute alcohol withdrawal and acute delirium tremens. 2. Coumadin coagulopathy. 3. Mild pancreatitis. 4. Thrombocytopenia mild. 5. Hyponatremia. 6. Acute alcoholic hepatitis with increased bilirubin, AST, ALT. 7. Acute urinary tract infection present on admission. 8. Hypertension. 9. Hyperlipidemia. 10.History of EtOH abuse. 11.History of depression. 12.History of nicotine dependence. 13.FULL CODE. DISCHARGE DISPOSITION: Patient discharged in stable condition with guarded prognosis. HISTORY OF PRESENT ILLNESS: This is a 66-year-old gentleman with a past medical history of multiple medical problems, admitted with acute alcohol withdrawal and as well as Coumadin coagulopathy. The patient was monitored closely. The patient improved significantly. Patient discharged in stable condition. Guarded prognosis. Patient recommended follow up in the outpatient setting, and alcohol rehab is also is recommended at this time. PHYSICAL EXAMINATION: On exam, vitals stable. Cardiovascular S1 and S2. Abdomen soft. Nervous system with minimal tremors present. DISCHARGE INSTRUCTIONS: Discharge diet is cardiac. Activity limited until followup. Follow up with Dr. White in 1-2 days. Follow up with alcohol rehab as mentioned. MEDICATIONS: 1. Abilify 5 mg p.o. daily. 2. Celexa 10 mg daily. 3. Coumadin 5 mg p.o. daily. 4. Lopressor 25 mg b.i.d. 5. Melatonin 1 mg q.h.s. 6. Zocor 80 mg daily. 7. Aspirin 81 mg p.o. daily. 8. folic acid 1 mg daily. 9. LIBRIUM 25 mg p.o. b.i.d. for withdrawals. 10.Norvasc 10 mg p.o. daily. 11.Protonix 40 mg p.o. b.i.d. 12.Thiamine 100 mg daily. 13.Zestril 20 mg p.o. daily. Follow up labs with Dr. White. Once again the patient will be discharged in stable condition with a guarded prognosis. The patient had hemoglobin of 13.5 and sodium 135. AST was and improving and lipase was 1033. MMODL / IJN: [id number] / MTDD
[2021-04-17] MEDS ORDERED: chlordiazePOXIDE 25 MG CAP PO SCH (09:00)
== END 2021-04-16 17:06 | disposition home or self-care (01) | DRG 896 ==
LOC: EC 10:09 → 4SSUR 15:30
PROVIDERS: ADMIT Internal Medicine; ATTEND Internal Medicine
DX: F10.231 Alcohol dependence with withdrawal delirium (principal); K85.90 Acute pancreatitis without necrosis or infection, unspecified; N39.0 Urinary tract infection, site not specified; E87.1 Hypo-osmolality and hyponatremia; D69.6 Thrombocytopenia, unspecified; K70.10 Alcoholic hepatitis without ascites; R79.1 Abnormal coagulation profile; T45.515A Adverse effect of anticoagulants, initial encounter; E78.5 Hyperlipidemia, unspecified; Z20.822 Contact with and (suspected) exposure to COVID-19; F32.9 Major depressive disorder, single episode, unspecified; I10 Essential (primary) hypertension; I48.91 Unspecified atrial fibrillation; Z87.891 Personal history of nicotine dependence; Z79.82 Long term (current) use of aspirin; Z79.01 Long term (current) use of anticoagulants; Z79.899 Other long term (current) drug therapy
CPT/HCPCS: 36415; 71045; 80053; 80306; 81001; 82075; 82150; 83690; 85025; 85610; 85730; 87086; 87635; 99285